=== PATIENT | female | born 1970 | race Caucasian/White ===

== ENCOUNTER 2021-04-10 09:34 | Inpatient (IN) | payer MEDICAID, OTHER, SELFPAY ==
[~2021-04-10] VITALS: Ht 162.6 cm; Wt 47.6 kg
[~2021-04-10 09:34] MED LIST: GLU500 PO; GLYPIZIDE PO; IBUP-1969 PO
[2021-04-10 09:55] VITALS: BP_SYST 95
--- NOTE | 2021-04-10 09:55 | NUR ---
Placed in room 4 . Placed on cardiac tech, blood pressure machine and pulse oximeter. To gown for exam. Side rails up.
--- NOTE | 2021-04-10 09:56 | NUR ---
Pt bib ambulance for hyperglycemia 490 on scene. Pt has no medical treatment for her diabetes and no primary care physician. Pt is AAOX3 with slurred speech. Pt presenting with kussmaul rspirations at 23 breathes per minute. Pt blood sugar upon arrival was 462. Pt VSS resting in [facility]. Pt had left ankle surgery presenting with redness and warmth to incision site and malodourous skin is intact. Pt attached to monitor in [facility] with side rails up. Pt brought with [address] [facility] with 1 liter of NS hanging. Pt breathing is even and labored. Pt complains of weakness.
--- NOTE | 2021-04-10 09:57 | NUR ---
ER at bedside examining patient.
--- NOTE | 2021-04-10 10:00 | NUR ---
Lab at bedside.
--- NOTE | 2021-04-10 10:08 | NUR ---
x-ray at bedside.
[2021-04-10 10:25] LABS: BASOPHILS # (AUTO) 0.2 K/uL (0.0-0.2); BASOPHILS % (AUTO) 0.8 % (0.0-2.0); HEMATOCRIT 36.3 % (36-48); HEMOGLOBIN 11.4 g/dL (12.0-16.0); LYMPHOCYTES # (AUTO) 0.5 K/uL (1.0-5.5); LYMPHOCYTES % (AUTO) 2.4 % (20.5-51.5); MEAN CORPUSCULAR HEMOGLOBIN 29 pg (27-31); MEAN CORPUSCULAR HGB CONC 31 % (32-36); MEAN CORPUSCULAR VOLUME 94 fL (79.0-98.0); MONOCYTES % (AUTO) 5.3 % (1.7-9.3); NEUTROPHILS # (AUTO) 17.9 K/uL (1.8-7.7); NEUTROPHILS % (AUTO) 91.5 % (40.0-70.0); PLATELET COUNT (AUTO) 390 K/uL (130-430); RED BLOOD CELL COUNT(AUTO) 3.87 MIL/uL (4.2-6.2); RED CELL DISTRIBUTION WIDTH 13.8 % (9.0-15.0); WHITE BLOOD COUNT (AUTO) 19.6 K/uL (4.8-10.8)
[2021-04-10 10:34] LABS: ACETONE, SERUM MODERATE (NEGATIVE)
[2021-04-10 10:44] LABS: INR 1.1 (0.8-1.2); PROTHROMBIN TIME 11.7 SECS (9.5-12.5)
--- NOTE | 2021-04-10 10:55 | NUR ---
Pt doesnt take any medications at home.
--- NOTE | 2021-04-10 10:55 | NUR ---
Pt daughter at bedside.
--- NOTE | 2021-04-10 11:02 | NUR ---
Covid swab and MRSA swab collected and sent to lab.
--- NOTE | 2021-04-10 11:14 | NUR ---
Pt placed on bedpan for urine but pt could not urinate.
[2021-04-10 11:58] LABS: ALANINE AMINOTRANSFERASE 14 U/L (12-78); ALBUMIN 2.3 g/dL (3.4-4.8); ANION GAP 31 (5-15); ASPARTATE AMINOTRANSFERASE 16 U/L (10-37); CALCIUM 9.8 mg/dL (8.4-11.0); CHLORIDE 92 mmol/L (98-107); CREATININE 1.11 mg/dL (0.55-1.30); SODIUM SERUM 128 mmol/L (136-145); TOTAL BILIRUBIN 0.5 mg/dL (0.0-1.0); UREA NITROGEN, BLOOD 49 mg/dL (8-21)
--- NOTE | 2021-04-10 12:00 | NUR ---
RT at bedside.
[2021-04-10 12:02] LABS: POTASSIUM 2.9 mmol/L (3.5-5.1)
[2021-04-10 12:05] LABS: GLUCOSE 531 mg/dL (70-99)
[2021-04-10] MEDS ORDERED: NACL 0.9% 1,000 ML IV ONE (12:15)
[2021-04-10] MEDS ORDERED: VANCOMYCIN HCL 1,000 MG in NS 250 ML IV ONE (12:15)
[2021-04-10] MEDS ORDERED: INSULIN REGULAR, HUMAN 10 UNITS/0.1 ML INJ IVP ONE (12:15)
[2021-04-10] MEDS ORDERED: PIPERACILLIN/TAZO 4.5 GM in NS 100 ML IV ONE (12:15)
[2021-04-10] MEDS ORDERED: NACL 0.9% 2,000 ML IV ONE (12:30)
--- NOTE | 2021-04-10 12:30 | NUR ---
# 20 gauge angiocath placed to LAC. Use of asceptic technique. Opsite placed over site. Blood return noted. Blood for lab drawn from site. Flushed with 10 cc of normal saline. No evidence of infiltration noted. Patient tolerated well.
[2021-04-10] MEDS ORDERED: PIPERACILLIN/TAZOBACTAM 4.5 GM/VIAL (ZOSYN) IV ONE (12:41)
[2021-04-10] MEDS ORDERED: VANCOMYCIN HCL 1000 MG/VIAL IV ONE (12:41)
[2021-04-10] MEDS ORDERED: INSULIN REGULAR, HUMAN 100 UNITS in NS 99 ML IV ONE ×2 (13:00)
--- NOTE | 2021-04-10 13:00 | NUR ---
X-ray at bedside.
[2021-04-10] MEDS ORDERED: POTASSIUM CHLORIDE 20 MEQ TAB.PRT.SR PO ONE ×3 (13:15→22:45)
[2021-04-10] MEDS ORDERED: DOPamine PREMIX 250 ML IV PRN (13:15)
--- NOTE | 2021-04-10 13:31 | NUR ---
Dr. Adam placed a 20 gauge angiocath IJ into the right side of the neck .Pt tolerated well. Blood return noted flushed with 10 cc normal saline and opsite placed with sterile technique.
--- NOTE | 2021-04-10 13:41 | NUR ---
# 20 gauge angiocath placed to RFA. Use of asceptic technique. Opsite placed over site. Blood return noted. Blood for lab drawn from site. Flushed with 10 cc of normal saline. No evidence of infiltration noted. Patient tolerated well.
[2021-04-10] MEDS: KCL 20 mEq in NS 1000 mL 1,000 ML IV SCH ×2 (13:45→19:25)
--- NOTE | 2021-04-10 13:56 | NUR ---
Dr. Lacy at bedside examining pt.
--- NOTE | 2021-04-10 14:52 | NUR ---
POLST Updated to Full Code.
--- NOTE | 2021-04-10 15:33 | NUR ---
Titrated insulin drip to 2 units/hr per protocol BS 227.
--- NOTE | 2021-04-10 16:01 | NUR ---
Pt resting in [facility] no distress noted at this time. VSS 123/71 HR 90 RR 16 Temp 97.2 temporal and denies pain. Attached to monitor
--- NOTE | 2021-04-10 16:10 | NUR ---
Lab at bedside.
--- NOTE | 2021-04-10 16:29 | NUR ---
Called ICU for a bed and there are no beds available. Pt will be holding in ER.
[2021-04-10 16:34] LABS: CALCIUM 9.2 mg/dL (8.4-11.0); CREATININE 0.97 mg/dL (0.55-1.30)
[2021-04-10 16:42] LABS: POTASSIUM 2.4 mmol/L (3.5-5.1)
--- NOTE | 2021-04-10 17:01 | NUR ---
Spoke with Dr. Lacy and updated on pt status. Orders recieved.
--- NOTE | 2021-04-10 17:34 | NUR ---
Insulin drip titrated down to 1 unit/hr per protocol. BS 144
--- NOTE | 2021-04-10 17:45 | NUR ---
Pt assisted to bedpan.
[2021-04-10] MEDS: PIPERACILLIN/TAZO 3.375/DEX-IS 50 ML IV SCH (17:56)
--- NOTE | 2021-04-10 18:23 | NUR ---
Pt given dinner tray.
--- NOTE | 2021-04-10 19:08 | NUR ---
Care endorsed to Cesar SIN.
--- NOTE | 2021-04-10 20:55 | NUR ---
Continuing pt insulin IV drip rate, VSS well tolerated
[2021-04-10] MEDS: ENOXAPARIN SODIUM 30 MG/0.3 ML SYRINGE SUBCUT SCH (21:00)
[2021-04-10 21:53] LABS: CALCIUM 9.4 mg/dL (8.4-11.0); CREATININE 0.98 mg/dL (0.55-1.30)
[2021-04-10 21:59] LABS: ALBUMIN 1.9 g/dL (3.4-4.8); TOTAL BILIRUBIN 0.4 mg/dL (0.0-1.0)
--- NOTE | 2021-04-10 22:00 | NUR ---
Dr. Lacy called to TO @4 BMP labs and his verbal orders for additional Ks and changing IVF to D5NS with 20 kcl
[2021-04-10 22:02] LABS: POTASSIUM 2.5 mmol/L (3.5-5.1)
[2021-04-10] MEDS ORDERED: KCL 40 mEq in 100 mL (PREMIX) 100 ML IV ONE (22:45)
--- NOTE | 2021-04-10 23:22 | NUR ---
Patient will be admitted to care of Dr. Lacy. Admitted to ICU unit. Will go to room 126. Belongings list completed. Complete and up to date summary report printed. SBAR report to be given at bedside with opportunity for questions.
--- NOTE | 2021-04-10 23:24 | NUR ---
Transfer to ICU via ACLS protocol. Licensed nurse present. IV present no signs or symptoms of infiltration.
--- NOTE | 2021-04-10 23:35 | NUR ---
Received patient from ER via gurney. Lethargic and requires assistance for transfer. Follows simple commands, very weak. Left ankle shows scar from surgical incision which in the external aspect drains dark color fluid; no odor noted. no respiratory distress noted but patient display grimacing upon reposition; patient denies pain. Requesting to use bedpan and requires full assist during urination. will continue to monitor.
[2021-04-11] VITALS (22 sets, daily range): BP systolic 96–123
[2021-04-11] MEDS ORDERED: KCL IV ONE (00:18)
[2021-04-11] MEDS ORDERED: D5NS IV ONE (00:18)
[2021-04-11] MEDS: KCL 20 mEq in D5NS 1000 mL 1,000 ML IV SCH ×4 (01:22→17:55)
[2021-04-11] MEDS: PIPERACILLIN/TAZO 3.375/DEX-IS 50 ML IV SCH ×5 (01:22→23:55)
[2021-04-11 02:03] LABS: CALCIUM 9.3 mg/dL (8.4-11.0); CREATININE 1.01 mg/dL (0.55-1.30); POTASSIUM 3.3 mmol/L (3.5-5.1)
--- NOTE | 2021-04-11 05:27 | NUR ---
CONSULTATION PAGED DR. AKILA MAX WARP DRESSER [phone] LEUKOCYTOSIS SPOKE WITH MODESTO
--- NOTE | 2021-04-11 05:31 | NUR ---
CONSULTATION PAGED DR. LEON-SAYED [phone] WOMACK
[2021-04-11 06:46] LABS: BASOPHILS % (AUTO) 0.2 % (0.0-2.0); HEMATOCRIT 31.2 % (36-48); HEMOGLOBIN 10.5 g/dL (12.0-16.0); LYMPHOCYTES # (AUTO) 0.2 K/uL (1.0-5.5); MEAN CORPUSCULAR HEMOGLOBIN 29 pg (27-31); MEAN CORPUSCULAR HGB CONC 34 % (32-36); MEAN CORPUSCULAR VOLUME 86 fL (79.0-98.0); MONOCYTES # (AUTO) 0.9 K/uL (0.0-1.0); MONOCYTES % (AUTO) 5.5 % (1.7-9.3); NEUTROPHILS % (AUTO) 93.3 % (40.0-70.0); PLATELET COUNT (AUTO) 282 K/uL (130-430); RED BLOOD CELL COUNT(AUTO) 3.62 MIL/uL (4.2-6.2); RED CELL DISTRIBUTION WIDTH 13.2 % (9.0-15.0); WHITE BLOOD COUNT (AUTO) 16.1 K/uL (4.8-10.8)
[2021-04-11 06:57] LABS: CALCIUM 9.1 mg/dL (8.4-11.0); CREATININE 1.05 mg/dL (0.55-1.30)
--- NOTE | 2021-04-11 08:26 | NUR ---
0800 no change in insulin dose/bs 267 continue at 4 units/pt recieved asleep, easily aroused but lethargic, v/s stable, endocrinology saw pt, spoke to dr bah and updated/pt follows commands, afebrile and on room air, o2 sat 98%//pt still has some dark fluid coming from mouth that looks coffee ground but no vomiting yet//mw
[2021-04-11 08:36] LABS: C-REACTIVE PROTEIN QUANT 31.5 mg/dL (0-0.5)
[2021-04-11 08:42] LABS: CALCIUM 9.2 mg/dL (8.4-11.0); CREATININE 0.96 mg/dL (0.55-1.30)
[2021-04-11 09:01] LABS: POTASSIUM 2.8 mmol/L (3.5-5.1)
[2021-04-11 09:03] LABS: POTASSIUM 2.8 mmol/L (3.5-5.1)
--- NOTE | 2021-04-11 10:34 | NUR ---
1000 bs 273-continue 4 unit drip/no change/daughter at bedside, updated to pt condition//mw
[2021-04-11] MEDS ORDERED: KCL 40 mEq in 100 mL (PREMIX) 100 ML IV ONE (10:45)
[2021-04-11] MEDS ORDERED: POTASSIUM CHLORIDE 40 MEQ in NS 250 ML IV ONE (11:15)
[2021-04-11] MEDS: VANCOMYCIN HCL 750 MG in NS 250 ML IV SCH (12:18)
--- NOTE | 2021-04-11 12:20 | NUR ---
1200 blood suger 270, bicarb now is 15, continue insuilin drip at 4u/h/recheck chem at 4pm after potassium drip complete
[2021-04-11] MEDS ORDERED: INSULIN REGULAR, HUMAN 100 UNITS in NS 99 ML IV PRN ×4 (13:15)
--- NOTE | 2021-04-11 15:49 | NUR ---
Called Dr. Becerra with a consult, spoke with Yasmeen from the exchange
[2021-04-11 16:18] LABS: CALCIUM 9.3 mg/dL (8.4-11.0); CREATININE 0.83 mg/dL (0.55-1.30)
[2021-04-11 16:27] LABS: POTASSIUM 2.6 mmol/L (3.5-5.1)
[2021-04-11 17:02] LABS: CALCIUM 9.4 mg/dL (8.4-11.0); CREATININE 0.86 mg/dL (0.55-1.30)
[2021-04-11 17:13] LABS: POTASSIUM 2.6 mmol/L (3.5-5.1)
[2021-04-11] MEDS ORDERED: POTASSIUM CHLORIDE 20 MEQ/PKT PACKET PO ONE (18:15)
[2021-04-11] MEDS ORDERED: KCL 20 mEq in 100 mL (PREMIX) 100 ML IV ONE (18:15)
--- NOTE | 2021-04-11 18:25 | NUR ---
bs 164 1800, drip continues until 90mins after NPH dose given, then dc insuli drip, change ivf to 1/2 ns at 100cc/h and BS ac/hs//order of 20 keyona kcl po, then 20 keyona kcl iv//dcd q4hour labs and ordered mg,phos and bmp in a.m.//mw
[2021-04-11] MEDS ORDERED: DEXTROSE 50% JECT 50 ML DISP.SYRIN IVP PRN ×2 (19:00)
[2021-04-11] MEDS ORDERED: D5W 1,000 ML IV PRN (19:00)
[2021-04-11] MEDS ORDERED: GLUCOSE (DEXTROSE) ORAL GEL -Adults PO PRN (19:00)
[2021-04-11] MEDS: INSULIN NPH 100 UNITS/ML 10 ML VIAL SUBCUT SCH ×2 (19:15→22:10)
[2021-04-11] MEDS: 0.45% NACL 1,000 ML IV SCH (22:24)
[2021-04-11] MEDS: ENOXAPARIN SODIUM 30 MG/0.3 ML SYRINGE SUBCUT SCH (22:28)
[2021-04-12] VITALS (14 sets, daily range): BP systolic 99–126
[2021-04-12] MEDS: INSULIN REGULAR, HUMAN 100 UNITS/ML, 10 ML VIAL (humuLIN R) SUBCUT PRN ×4 (00:28→17:44)
[2021-04-12] MEDS: PIPERACILLIN/TAZO 3.375/DEX-IS 50 ML IV SCH ×3 (06:32→17:52)
--- NOTE | 2021-04-12 07:23 | NUR ---
INITIAL RECEIVED REPORT FROM NIGHT RN FOR CONTINUING OF CARE
[2021-04-12 07:38] LABS: BASOPHILS % (AUTO) 0.2 % (0.0-2.0); HEMOGLOBIN 9.5 g/dL (12.0-16.0); LYMPHOCYTES # (AUTO) 0.5 K/uL (1.0-5.5); LYMPHOCYTES % (AUTO) 2.8 % (20.5-51.5); MEAN CORPUSCULAR HEMOGLOBIN 29 pg (27-31); MEAN CORPUSCULAR HGB CONC 34 % (32-36); MEAN CORPUSCULAR VOLUME 86 fL (79.0-98.0); MONOCYTES % (AUTO) 5.5 % (1.7-9.3); NEUTROPHILS # (AUTO) 16.4 K/uL (1.8-7.7); NEUTROPHILS % (AUTO) 91.5 % (40.0-70.0); PLATELET COUNT (AUTO) 250 K/uL (130-430); RED BLOOD CELL COUNT(AUTO) 3.25 MIL/uL (4.2-6.2); RED CELL DISTRIBUTION WIDTH 13.5 % (9.0-15.0)
[2021-04-12 08:18] LABS: CALCIUM 9.1 mg/dL (8.4-11.0); CREATININE 0.62 mg/dL (0.55-1.30); PHOSPHORUS 1.1 mg/dL (2.7-4.5)
[2021-04-12] MEDS ORDERED: ONDANSETRON HCL 4 MG/2 ML VIAL IVP PRN (08:30)
[2021-04-12 08:34] LABS: POTASSIUM 2.8 mmol/L (3.5-5.1)
--- NOTE | 2021-04-12 08:52 | NUR ---
LAB UPDATED INFORMED ASTRID MOSQUERA OF PT'S POTASSIUM LEVEL OF 2.8. VERBALIZED THAT HE WILL PUT IN ORDER OF POTASSIUM REPLACEMENT
[2021-04-12] MEDS: INSULIN NPH 100 UNITS/ML 10 ML VIAL SUBCUT SCH (09:07)
[2021-04-12] MEDS: 0.45% NACL 1,000 ML IV SCH ×2 (09:08→17:57)
[2021-04-12] MEDS ORDERED: POTASSIUM CHLORIDE 20 MEQ TAB.PRT.SR PO ONE (09:15)
[2021-04-12] MEDS ORDERED: KCL 40 mEq in 100 mL (PREMIX) 100 ML IV ONE (09:15)
[2021-04-12] MEDS: VANCOMYCIN HCL 750 MG in NS 250 ML IV SCH (11:15)
[2021-04-12] MEDS: KCL 20 mEq in 100 mL (PREMIX) 100 ML IV SCH ×3 (12:12→12:38)
--- NOTE | 2021-04-12 14:52 | NUR ---
ENDORSEMENT REPORT GIVEN TO TELE NURSE FOR CONTINUING OF CARE. PT DENIED PAIN; VSS ARE STABLE. BED LOCKED & IN LOWEST POSITION
--- NOTE | 2021-04-12 15:00 | NUR ---
ASSUME CARE: PATIENT RESTING IN BED. NO S/S OF ACUTE DISTRESS NOTED. IV INFUSING WELL. BED LOCKED, ALARM ON AND IN LOWEST POSITION, CALL LIGHT WITHIN REACH. WILL CONTINUE MONITOR PATIENT.
--- NOTE | 2021-04-12 19:25 | NUR ---
CLOSING NOTES: PATIENT EATING DINNER. NO S/S OF ACUTE DISTRESS NOTED. IV INFUSING WELL. BED LOCKED, ALARM ON AND IN LOWEST POSITION. CALL LIGHT WITHIN REACH.
--- NOTE | 2021-04-12 19:30 | NUR ---
OPENING NOTE: RECEIVED CARE OF PATIENT AND SBAR REPORT. PATIENT IS AAOX4, RESTING IN BED, IVF INFUSING AT ORDERED RATE WITH NO S/S OF INFILTRATION AT IV SITE. VSS. RESPIRATIONS ARE EVEN AND UNLABORED TO ROOM AIR, NO S/S OF RESPIRATORY DISTRESS NOTED. SAFETY AND FALL PRECAUTIONS ARE IN PLACE. CALL LIGHT IS WITH PATIENT. WILL MONITOR.
[2021-04-12] MEDS: ENOXAPARIN SODIUM 30 MG/0.3 ML SYRINGE SUBCUT SCH (20:35)
[2021-04-12] MEDS: INSULIN GLARGINE 100 UNITS/ML 10 ML VIAL SUBCUT SCH (20:43)
--- NOTE | 2021-04-13 | NUR ---
PATIENT RESTING: Patient resting quietly. No acute distress noted. Vital signs within normal range.
[2021-04-13] MEDS: PIPERACILLIN/TAZO 3.375/DEX-IS 50 ML IV SCH ×3 (00:20→10:46)
[2021-04-13] MEDS: INSULIN REGULAR, HUMAN 100 UNITS/ML, 10 ML VIAL (humuLIN R) SUBCUT PRN ×4 (00:25→17:22)
[2021-04-13 01:02] VITALS: BP_SYST 106
[2021-04-13] MEDS: 0.45% NACL 1,000 ML IV SCH ×3 (06:08→18:19)
[2021-04-13 06:36] LABS: BASOPHILS % (AUTO) 0.3 % (0.0-2.0); EOSINOPHILS # (AUTO) 0.1 K/uL (0.0-0.4); EOSINOPHILS % (AUTO) 0.3 % (0.0-4.0); HEMATOCRIT 26.8 % (36-48); HEMOGLOBIN 9.2 g/dL (12.0-16.0); LYMPHOCYTES # (AUTO) 0.9 K/uL (1.0-5.5); LYMPHOCYTES % (AUTO) 4.6 % (20.5-51.5); MEAN CORPUSCULAR HEMOGLOBIN 29 pg (27-31); MEAN CORPUSCULAR HGB CONC 34 % (32-36); MEAN CORPUSCULAR VOLUME 85 fL (79.0-98.0); MONOCYTES # (AUTO) 0.9 K/uL (0.0-1.0); NEUTROPHILS # (AUTO) 16.7 K/uL (1.8-7.7); NEUTROPHILS % (AUTO) 89.8 % (40.0-70.0); PLATELET COUNT (AUTO) 199 K/uL (130-430); RED BLOOD CELL COUNT(AUTO) 3.16 MIL/uL (4.2-6.2); WHITE BLOOD COUNT (AUTO) 18.6 K/uL (4.8-10.8)
--- NOTE | 2021-04-13 06:42 | NUR ---
OPENING NOTE: PATIENT IS AAOX4, RESTING IN BED, IVF INFUSING AT ORDERED RATE WITH NO S/S OF INFILTRATION AT IV SITE. VSS. RESPIRATIONS ARE EVEN AND UNLABORED TO ROOM AIR, NO S/S OF RESPIRATORY DISTRESS NOTED. SAFETY AND FALL PRECAUTIONS ARE IN PLACE. CALL LIGHT IS WITH PATIENT. WILL MONITOR UNTIL PATIENT CARE IS ENDORSED TO DAY SHIFT RN.
[2021-04-13 07:28] LABS: CALCIUM 8.7 mg/dL (8.4-11.0); CREATININE 0.64 mg/dL (0.55-1.30)
[2021-04-13 08:13] VITALS: BP_SYST 108
[2021-04-13 08:48] LABS: POTASSIUM 2.8 mmol/L (3.5-5.1)
[2021-04-13] MEDS: INSULIN GLARGINE 100 UNITS/ML 10 ML VIAL SUBCUT SCH (09:13)
[2021-04-13] MEDS ORDERED: COMMUNICATION ORDER XX ONE (09:45)
[2021-04-13] MEDS ORDERED: POTASSIUM CHLORIDE 40 MEQ, LIDOCAINE JECT 2% PF 100 MG 50 MG in NS 250 ML IV ONE (09:45)
--- NOTE | 2021-04-13 09:49 | NUR ---
ENDO CONSULT: MD LEON-SAYED CAME INFORMED PATIENT CRITICAL LAB RESULT. NEW ORDER RECEIVED K-RIDER 40MEQ IVPB. K PHOS 20MEQ PO BID X1 DAY.
[2021-04-13 11:29] VITALS: BP_SYST 98
--- NOTE | 2021-04-13 11:41 | NUR ---
called pharmacy to follow up gage le stated working on it.
[2021-04-13] MEDS: NAPH,MB-DB/K PH,MBDB 250 MG TAB PO SCH (12:11)
--- NOTE | 2021-04-13 12:34 | NUR ---
Dietitian Recommendations *Recommend: continue [facility] diet. Add Glucerna BID and Rosas BID. ONS and modular will provide: 600 kcal, 25gm protein daily. *Encourage PO intake. Please see Nutritional Assessment for details. SHERITA GUZMAN
--- NOTE | 2021-04-13 15:00 | NUR ---
patient refused sponge bath.
[2021-04-13 15:25] VITALS: BP_SYST 116
--- NOTE | 2021-04-13 15:30 | NUR ---
WOUND EVALUATION: Wound Consult received from Dr. Lacy. Thank you, Dr. Lacy, for the consult. Patient received in a [place] Bed with an Isoflex CASEY mattress, awake, alert, and oriented. Patient is able to turn in bed independently. Gee Score is a 15. Past Medical History: Diabetes Mellitus (noncompliant, not taking any medication), Left Ankle Fracture (had an Open Reduction Internal Fixation surgery at [facility] a few weeks ago). Recent Labs: WBC 18.6, RBC 3.16, hemoglobin 9.2, hematocrit 26.8, ESR 113, potassium 2.8, chloride 109, glucose 186, POC glucose 207. Microbiology: Blood culture results x2 in progress. MRSA screen results negative. Wound culture results in progress. Intrinsic factors that delay wound healing: Diabetes Mellitus (noncompliant), Diabetic Ketoacidosis (on admission). Extrinsic factors that delay wound healing: Decreased mobility. Dr. Becerra is on surgical consult. Wound Assessment: 1. Left Distal Medial Lower Extremity, Superior to Malleolus: Abscess, present on admission. Wound bed has 100% yellow tissue. No odor, small yellow purulent drainage. Periwound and surrounding tissue (5.5 cm total area) is soft with fluctuance. Open area measures 1.1 cm x 1.7 cm. 2. Left Distal Lateral Lower Extremity, Superior to Malleolus: Prior healed incision site that reopened, present on admission. No wound bed visible. Site has no odor, small yellow purulent drainage. Wound measures 1.3 cm x 0.2 cm. Recommend: Cleanse wounds with normal saline. Apply SurePrep to dick-wounds. Cover with alginate dressings, then non-adhesive foam dressings. Wrap with Nicole wrap and secure with tape. Perform wound care daily, and as needed for dressing soiling or dislodgement. Also recommend: Reposition patient every 2 hours with pillow support and off-load pressure areas with pillows for pressure re-distribution. Offload, elevate and float bilateral heels with pillows. Perform skin care and monitor skin integrity Q shift. Use moisture barrier cream on buttocks and other moisture susceptible areas QID and as needed for soiling. Place patient on a low air-loss mattress.
--- NOTE | 2021-04-13 15:34 | NUR ---
wound care nurses evaluated patient wound at left ankle. recommended cleanse with normal saline, alignate and foam, wrapped with kerlix dressing.
--- NOTE | 2021-04-13 18:39 | NUR ---
ALL NEEDS METS.NO SIGNIFICANT CHANGES OF CONDITION NOTED. IVF INFUSING WELL SITE PATENT.NO S/S OF DISTRESS. WILL ENDORSED TO INCOMING NURSE.
[2021-04-13 19:00] VITALS: BP_SYST 88
[2021-04-13 20:00] VITALS: BP_SYST 88
[2021-04-14] MEDS: NAPH,MB-DB/K PH,MBDB 250 MG TAB PO SCH (01:00)
[2021-04-14] MEDS: CEFTAROLINE FOSAMIL ACETATE 600 MG in NS 250 ML IV SCH ×3 (01:01→20:18)
[2021-04-14] MEDS: ENOXAPARIN SODIUM 30 MG/0.3 ML SYRINGE SUBCUT SCH ×2 (01:16→20:27)
[2021-04-14] MEDS: INSULIN GLARGINE 100 UNITS/ML 10 ML VIAL SUBCUT SCH ×3 (01:19→20:30)
[2021-04-14] MEDS: INSULIN REGULAR, HUMAN 100 UNITS/ML, 10 ML VIAL (humuLIN R) SUBCUT PRN (01:22)
[2021-04-14 05:30] VITALS: BP_SYST 88
[2021-04-14] MEDS: 0.45% NACL 1,000 ML IV SCH (06:49)
[2021-04-14 06:51] LABS: CALCIUM 8.4 mg/dL (8.4-11.0); CREATININE 0.64 mg/dL (0.55-1.30); PHOSPHORUS 2.2 mg/dL (2.7-4.5)
--- NOTE | 2021-04-14 07:40 | NUR ---
Opening Received report from RN. Pt AAOx3, able to verbalize needs, states no pain or distress on RA. IV sites intact, patent, no infiltration noted, with IVF infusing. Noted dressing on left ankle. De La Cruz in place draining yellow urine to gravity. Pt up in bed eating breakfast, no assist.
[2021-04-14 08:00] VITALS: BP_SYST 126
[2021-04-14 08:11] LABS: BASOPHILS % (AUTO) 0.1 % (0.0-2.0); EOSINOPHILS # (AUTO) 0.1 K/uL (0.0-0.4); EOSINOPHILS % (AUTO) 0.5 % (0.0-4.0); HEMATOCRIT 27.2 % (36-48); HEMOGLOBIN 9.2 g/dL (12.0-16.0); LYMPHOCYTES % (AUTO) 9.2 % (20.5-51.5); MEAN CORPUSCULAR HEMOGLOBIN 29 pg (27-31); MEAN CORPUSCULAR HGB CONC 34 % (32-36); MEAN CORPUSCULAR VOLUME 85 fL (79.0-98.0); MONOCYTES % (AUTO) 9.5 % (1.7-9.3); NEUTROPHILS # (AUTO) 8.7 K/uL (1.8-7.7); NEUTROPHILS % (AUTO) 80.7 % (40.0-70.0); PLATELET COUNT (AUTO) 192 K/uL (130-430); RED BLOOD CELL COUNT(AUTO) 3.19 MIL/uL (4.2-6.2); RED CELL DISTRIBUTION WIDTH 13.9 % (9.0-15.0); WHITE BLOOD COUNT (AUTO) 10.7 K/uL (4.8-10.8)
[2021-04-14 08:14] LABS: POTASSIUM 2.6 mmol/L (3.5-5.1)
[2021-04-14 12:00] VITALS: BP_SYST 124
--- NOTE | 2021-04-14 12:00 | NUR ---
Rounds Pt in no signs of pain or distress. Vitals stable on room air. Provided pt with lunch tray.
[2021-04-14 16:00] VITALS: BP_SYST 130
--- NOTE | 2021-04-14 16:00 | NUR ---
Rounds Pt in no signs of distress or pain. Vitals stable. No other complaints at this time.
[2021-04-14] MEDS ORDERED: POTASSIUM CHLORIDE 20 MEQ in NS 250 ML IV ONE (18:15)
[2021-04-14] MEDS ORDERED: NAPH,MB-DB/K PH,MBDB 250 MG TAB PO ONE (18:45)
[2021-04-14 19:00] VITALS: BP_SYST 111
--- NOTE | 2021-04-14 19:15 | NUR ---
Closing Pt up in bed eating dinner. IV sites intact, patent, no infiltration noted. De La Cruz draining yellow urine to gravity. Pt received neutra phos PO and now waiting for K rider replacement from pharmacy, endorsed to warehouse supervisor 3rd shift RN.
[2021-04-15] MEDS: 0.45% NACL 1,000 ML IV SCH ×2 (00:06→09:01)
[2021-04-15 06:30] VITALS: BP_SYST 105
[2021-04-15 06:54] LABS: BASOPHILS % (AUTO) 0.1 % (0.0-2.0); EOSINOPHILS # (AUTO) 0.1 K/uL (0.0-0.4); EOSINOPHILS % (AUTO) 0.7 % (0.0-4.0); HEMATOCRIT 25.9 % (36-48); HEMOGLOBIN 8.8 g/dL (12.0-16.0); LYMPHOCYTES # (AUTO) 0.6 K/uL (1.0-5.5); LYMPHOCYTES % (AUTO) 7.6 % (20.5-51.5); MEAN CORPUSCULAR HEMOGLOBIN 29 pg (27-31); MEAN CORPUSCULAR HGB CONC 34 % (32-36); MEAN CORPUSCULAR VOLUME 85 fL (79.0-98.0); MONOCYTES % (AUTO) 11.6 % (1.7-9.3); NEUTROPHILS # (AUTO) 6.7 K/uL (1.8-7.7); PLATELET COUNT (AUTO) 168 K/uL (130-430); RED BLOOD CELL COUNT(AUTO) 3.05 MIL/uL (4.2-6.2); WHITE BLOOD COUNT (AUTO) 8.4 K/uL (4.8-10.8)
[2021-04-15 07:21] LABS: CALCIUM 7.9 mg/dL (8.4-11.0); CREATININE 0.57 mg/dL (0.55-1.30)
[2021-04-15 08:53] LABS: POTASSIUM 2.3 mmol/L (3.5-5.1)
--- NOTE | 2021-04-15 08:59 | NUR ---
DR LEON SAYED CAME AND MADE ORDERS
--- NOTE | 2021-04-15 08:59 | NUR ---
DR LEON SAYED CAME AND KNOWS ABOUT THE POTASSIUM LEVEL AND MADE ORDERS.
[2021-04-15] MEDS: NAPH,MB-DB/K PH,MBDB 250 MG TAB PO SCH (09:01)
[2021-04-15] MEDS: CEFTAROLINE FOSAMIL ACETATE 600 MG in NS 250 ML IV SCH (09:02)
[2021-04-15 09:11] VITALS: BP_SYST 135
[2021-04-15] MEDS ORDERED: KCL 40 mEq in 100 mL (PREMIX) 100 ML IV ONE (10:30)
[2021-04-15] MEDS: INSULIN GLARGINE 100 UNITS/ML 10 ML VIAL SUBCUT SCH ×2 (12:07→21:45)
[2021-04-15 12:10] VITALS: BP_SYST 108
[2021-04-15] MEDS ORDERED: POTASSIUM CHLORIDE 40 MEQ in NS 250 ML IV ONE (13:00)
[2021-04-15 13:34] VITALS: BP_SYST 111
[2021-04-15] MEDS: NAFCILLIN SODIUM 2 GM in NS 100 ML IV SCH ×2 (18:07→23:40)
[2021-04-15 19:22] VITALS: BP_SYST 142
[2021-04-15 20:00] VITALS: BP_SYST 111
[2021-04-15] MEDS: ENOXAPARIN SODIUM 30 MG/0.3 ML SYRINGE SUBCUT SCH (21:33)
[2021-04-15] MEDS: ACETAMINOPHEN 325 MG TABLET PO PRN (23:36)
[2021-04-16] VITALS: BP_SYST 110
--- NOTE | 2021-04-16 01:26 | NUR ---
TRANSFER OF CARE RECEIVED CARE OF PATIENT AND SBAR REPORT. PT RESTING IN BED IN NO ACUTE DISTRESS. SAFETY PRECAUTIONS MAINTAINED. WILL MONITOR.
--- NOTE | 2021-04-16 01:47 | NUR ---
LOW BLOOD SUGAR BLOOD SUGAR NOTED TO BE 40. PATIENT ALERT AND ABLE TO SWALLOW. PT GIVEN JUICE. WILL RECHECK BLOOD SUGAR IN 15 MINUTES.
--- NOTE | 2021-04-16 02:04 | NUR ---
BLOOD SUGAR OF 63. MORE JUICE AND SNACKS GIVEN. PT ASYMPTOMATIC. WILL RECHECK BLOOD SUGAR IN 15 MINUTES.
--- NOTE | 2021-04-16 02:40 | NUR ---
BLOOD SUGAR OF 99. EDUCATED PT ON SYMPTOMS OF HYPOGLYCEMIA. PT VERBALIZED UNDERSTANDING. WILL MONITOR.
[2021-04-16] MEDS: NAFCILLIN SODIUM 2 GM in NS 100 ML IV SCH ×3 (06:34→16:55)
--- NOTE | 2021-04-16 07:10 | NUR ---
CLOSING NOTE PT RESTING IN BED, NO S/S OF ACUTE DISTRESS. IVF INFUSING AT ORDERED RATE. BLOOD SUGAR OF 113 THIS MORNING. F/C INTACT AND DRAINING TO GRAVITY. PT DENIES FURTHER NEEDS AT THIS TIME. SAFETY MAINTAINED. WILL ENDORSE TO DAY SHIFT RN.
--- NOTE | 2021-04-16 08:00 | NUR ---
notes PATIENT AAOX 4. STILL VERBALIZED I AM WEAK. VITALS SIGNS STABLE. AFEBRILE. LUNGS BILATERALLY CLEAR. ABDOMEN SOFT AND NON DISTENDED. LEFT ANKLE HAS DRESSING DRY AND INTACT. SACRAL AREA HAS OPTIFOAM DRESSING NOTED. DRY AND INTACT. BED LOW POSITION, ALARMED AND LOCKED.
[2021-04-16 08:01] LABS: CALCIUM 7.5 mg/dL (8.4-11.0); CREATININE 0.68 mg/dL (0.55-1.30)
[2021-04-16 08:10] LABS: POTASSIUM 2.9 mmol/L (3.5-5.1)
--- NOTE | 2021-04-16 09:00 | NUR ---
LATEST POTASSIUM LEVEL IS 2.9. INFORMED DR JARRETT. AWAITING TO CALL BACK.
--- NOTE | 2021-04-16 09:00 | NUR ---
DUE MEDS GIVEN
[2021-04-16 09:28] VITALS: BP_SYST 108
[2021-04-16] MEDS: NAPH,MB-DB/K PH,MBDB 250 MG TAB PO SCH (09:33)
[2021-04-16] MEDS: INSULIN GLARGINE 100 UNITS/ML 10 ML VIAL SUBCUT SCH (09:36)
--- NOTE | 2021-04-16 10:54 | NUR ---
HIGH ALERT NOTE: CalledAT 0830AM Dr. LALO NGUYEN back at 0900 identified within the medical roster to verify physician authenticity.FOR POTASSIUM RIDER 40 MEQ IV X ONE.
[2021-04-16] MEDS ORDERED: POTASSIUM CHLORIDE 40 MEQ in NS 250 ML IV ONE (11:00)
[2021-04-16 13:19] VITALS: BP_SYST 109
--- NOTE | 2021-04-16 13:21 | NUR ---
had two bowl movemnt brown soft stool
--- NOTE | 2021-04-16 13:22 | NUR ---
photos taken on the left ankle and sacrum area.
[2021-04-16] MEDS: 0.45% NACL 1,000 ML IV SCH (16:57)
[2021-04-16 16:59] VITALS: BP_SYST 110
--- NOTE | 2021-04-16 17:36 | NUR ---
dressing changed on left ankle. elevate on pillows. sacral area and perineal care done.
--- NOTE | 2021-04-16 17:57 | NUR ---
INFORMED JANUARY PRAKASH THAT PT IS OFF MONITOR, NEEDS BATTER CHANGE.
--- NOTE | 2021-04-16 18:44 | NUR ---
CLOSING NOTES PATIENT VERBALIZED FEELS MUCH BETTER AFTER EATING APPLE SAUCE JELLO AND 3 CUPS OF APPLE JUICE AND ONE MILK. BLOOD SUGAR EARLIER AT 1700 IS 50 MG/DL. D50 IV GIVEN. LATEST BS 186 MG/DL. PATIENT VERBALIZED WILL EAT MORE, SLIGHT WEAKNESS NOTED. WILL CONTINUE TO MONITOR PATIENTS STATUS. CALL LIGHTS WITHIN REACH. STILL WITH NO DISTRESS NOR PAIN NOTED. BED LOW POSITION, ALARMED AND LOCKED. ENDORSED TO INCOMING NURSE.
[2021-04-16 20:00] VITALS: BP_SYST 113
--- NOTE | 2021-04-16 20:00 | NUR ---
Opening notes Pt AAOx3, VSS, eating dinner at this time. No s/s distress noted. De La Cruz catheter draining to gravity with yellow urine. Call light within reach. Bed low, locked, siderails up x3. To monitor.
[2021-04-16] MEDS ORDERED: INSULIN GLARGINE 100 UNITS/ML 10 ML VIAL SUBCUT SCH (21:00)
[2021-04-16] MEDS: ENOXAPARIN SODIUM 30 MG/0.3 ML SYRINGE SUBCUT SCH (23:00)
[2021-04-17] MEDS: NAFCILLIN SODIUM 2 GM in NS 100 ML IV SCH ×5 (00:18→23:54)
[2021-04-17] MEDS: INSULIN REGULAR, HUMAN 100 UNITS/ML, 10 ML VIAL (humuLIN R) SUBCUT PRN ×2 (00:28→18:30)
[2021-04-17 00:53] VITALS: BP_SYST 132
--- NOTE | 2021-04-17 06:11 | NUR ---
Closing notes/hypoglycemic Pt alert awake, no s/s distress. BS checked at 0535=61, no change in pt's mental status. Provided with apple juice and jello. Rechecked at 0611=85. Pt incontinent of large soft BM, pericare provided. Z guard applied to sacral redness covered w/ optifoam. Call light within reach. Bed low, locked, siderails up x2. To endorse to AM nurse.
[2021-04-17 08:00] VITALS: BP_SYST 120
[2021-04-17] MEDS: INSULIN GLARGINE 100 UNITS/ML 10 ML VIAL SUBCUT SCH ×2 (09:00→22:09)
[2021-04-17 10:19] LABS: CALCIUM 7.7 mg/dL (8.4-11.0); CREATININE 0.68 mg/dL (0.55-1.30)
[2021-04-17 10:21] LABS: PROTHROMBIN TIME 10.8 SECS (9.5-12.5)
[2021-04-17 10:24] LABS: POTASSIUM 2.5 mmol/L (3.5-5.1)
--- NOTE | 2021-04-17 10:38 | NUR ---
Paged Dr. Lacy for critical lab result POTASSIUM 2,5
[2021-04-17] MEDS ORDERED: POTASSIUM CHLORIDE 20 MEQ TAB.PRT.SR PO ONE (11:00)
[2021-04-17] MEDS ORDERED: POTASSIUM CHLORIDE 20 MEQ TAB.PRT.SR ONE (11:10)
[2021-04-17] MEDS: NAPH,MB-DB/K PH,MBDB 250 MG TAB PO SCH (11:12)
[2021-04-17] MEDS ORDERED: POTASSIUM CHLORIDE 40 MEQ in NS 250 ML IV ONE (12:00)
[2021-04-17 12:03] VITALS: BP_SYST 113
[2021-04-17] MEDS: KCL 20 mEq in 0.45% NS 1000 mL 1,000 ML IV SCH (13:27)
[2021-04-17 16:00] VITALS: BP_SYST 106
[2021-04-17] MEDS: ACETAMINOPHEN 325 MG TABLET PO PRN (18:19)
--- NOTE | 2021-04-17 19:20 | NUR ---
initial notes: pt is awake, alert,oriented x4. no pain, o sob, stable vital sign, picc line in her lefy upper arm intact and patent. roque catheter draining to clear urine. explain plan of care. needs attended, call light in reach. will follow-up.
[2021-04-17 20:17] VITALS: BP_SYST 97
[2021-04-17] MEDS: POTASSIUM CHLORIDE 20 MEQ TAB.PRT.SR PO SCH (21:54)
[2021-04-17] MEDS: ENOXAPARIN SODIUM 30 MG/0.3 ML SYRINGE SUBCUT SCH (22:07)
[2021-04-18] VITALS: BP_SYST 127
--- NOTE | 2021-04-18 | NUR ---
clean pt and change chux, dressing change on sacral area and left and ankle. done. vital sign stable. needs attended.
[2021-04-18] MEDS: NAFCILLIN SODIUM 2 GM in NS 100 ML IV SCH ×3 (05:34→17:10)
[2021-04-18] MEDS: KCL 20 mEq in 0.45% NS 1000 mL 1,000 ML IV SCH (05:49)
--- NOTE | 2021-04-18 06:21 | NUR ---
closing: pt is awake, alert, no pain, no sob, not distress, stable the whole shift, clean and dry. needs attended, call light in reach, side rails up.low bed position. will continue to monitor, until sbar reporting given to am rn.
[2021-04-18 06:52] LABS: BASOPHILS % (AUTO) 0.1 % (0.0-2.0); EOSINOPHILS # (AUTO) 0.1 K/uL (0.0-0.4); EOSINOPHILS % (AUTO) 0.7 % (0.0-4.0); HEMATOCRIT 27.8 % (36-48); HEMOGLOBIN 9.1 g/dL (12.0-16.0); LYMPHOCYTES # (AUTO) 0.8 K/uL (1.0-5.5); MEAN CORPUSCULAR HEMOGLOBIN 28 pg (27-31); MEAN CORPUSCULAR HGB CONC 33 % (32-36); MEAN CORPUSCULAR VOLUME 87 fL (79.0-98.0); MONOCYTES # (AUTO) 0.7 K/uL (0.0-1.0); NEUTROPHILS % (AUTO) 86.2 % (40.0-70.0); PLATELET COUNT (AUTO) 286 K/uL (130-430); RED BLOOD CELL COUNT(AUTO) 3.19 MIL/uL (4.2-6.2); RED CELL DISTRIBUTION WIDTH 14.2 % (9.0-15.0); WHITE BLOOD COUNT (AUTO) 11.6 K/uL (4.8-10.8)
[2021-04-18 08:29] VITALS: BP_SYST 109
[2021-04-18] MEDS: POTASSIUM CHLORIDE 20 MEQ TAB.PRT.SR PO SCH ×2 (08:30→20:53)
[2021-04-18] MEDS: NAPH,MB-DB/K PH,MBDB 250 MG TAB PO SCH (08:30)
[2021-04-18] MEDS: INSULIN GLARGINE 100 UNITS/ML 10 ML VIAL SUBCUT SCH ×2 (08:32→20:55)
[2021-04-18 09:15] LABS: CALCIUM 7.8 mg/dL (8.4-11.0); CREATININE 0.71 mg/dL (0.55-1.30); POTASSIUM 3.7 mmol/L (3.5-5.1)
[2021-04-18] MEDS: INSULIN REGULAR, HUMAN 100 UNITS/ML, 10 ML VIAL (humuLIN R) SUBCUT PRN (11:56)
[2021-04-18 11:57] VITALS: BP_SYST 136
--- NOTE | 2021-04-18 15:15 | NUR ---
Education Educate patient on hygiene, medication ,diet, wound/skin care verbalized understanding.
--- NOTE | 2021-04-18 15:22 | NUR ---
Perineal care given , skin cream barrier applied to perineum redness/excoriated , repositioned.
[2021-04-18 16:34] VITALS: BP_SYST 120
--- NOTE | 2021-04-18 16:36 | NUR ---
Nutrition F/U RD reviewed pt's current EMR record including diet Hx, physician notes, nursing notes, pertinent labs/meds/procedures, care trends, and care activity. Admission Dx: DKA Pt w/: Acute DKA, Leukocytosis, Possible Infection, Dehydration, MEAGAN, Moderate Malnutrition, Infected Left ankle wound per MD notes. S/P Left ankle ORIF 03/03/21 SARS-Cov-2 Ag rapid 04/10 Negative Current Diet Order/Nutrition Support: CCHO diet w/ Glucerna BID, Rosas BID x5 days Subjective Info: Nutrition Consult received d/t abscess, dehisced Sx incision 04/13/[address] rounded to pt's bedside. Pt reported good appetite, no N/V/C/D. Last BM was earlier today. Pt stated she has not been drinking Glucerna d/t dislike, and does not care for fruit punch-flavored Rosas -- RD offered orange flavor as a replacement -- pt was agreeable to try. RD offered diabetic teaching, and pt was agreeable as well. RD provided verbal education during visit -- property management intern provided written handouts. Please refer to interdisciplinary teaching record for details. Per EMR review, PO intake average of 55% x14 meals; abd is soft and non-distended w/ active bowel sounds; last BM x1 10/2; L ankle w/ 3+ pitting edema; Gee scale: 14 -- Screw Driver Operator note 04/13 reviewed -- 1. Left Distal Medial Lower Extremity, Superior to Malleolus: Abscess, present on admission. 2. Left Distal Lateral Lower Extremity, Superior to Malleolus: Prior healed incision site that reopened, present on admission. Pt would benefit from D/C ONS and continuing Rosas BID supplementation. RD encouraged pt to continue to try to increase PO intakes for adequate nutrition. Pertinent Medications: k-dur, lactulose, KCl/NaCl IV, zofran, SSI, lovenox Pertinent Labs: Na 141 WNL, K 3.7 WNL, BG 154 H, POC BB 109 H, BUn 5 L, CRE 0.71 WNL, WBC 11.6 H Height (Feet) 5 feet Height (Inches) 4.00 inches Weight (Pounds) 105 pounds Weight (Calculated Kilograms) 47.893806 kilograms Patient Weight 47.627 kg Body Mass Index 18.02 kg/m2 %IBW 88 [place]/Adjusted Body Weight 120#/ 54.5 kg Weight Status Underweight Gastrointestinal Symptoms None Usual Diet At Home Regular diet Skin Integrity Comment: Gee scale: 15. +Surgical incision to left ankle per RN notes, non-pitting edema to left ankle. Current % PO Negligible <25% Estimated Energy Expenditure (kcals/day) 7773-4876 (30-35 kcal/kg IBW for wt gain promotion, wound healing) Estimated Protein Required (g/day) 65-81 (1.2-1.5 gm/kg IBW for wt gain promotion and post-op wound healing) Estimated Fluid Required (l/day) 1.6 L/day (30ml/kg IBW for maintenance) Problem/Etiology/Signs/Symptoms Underweight r/t chronic disease AEB BMI <18.5kg/m2. *ongoing Altered nutrition related labs r/t behavioral factors AEB elevated BG, non-compliance to medication. *ongoing Increased nutritional needs related to wound healing as evidenced by estimated nutritional requirements for wound healing. *new Expected Outcomes/Goals Monitor appetite and PO intake w/ goal of pt meeting more than 75% of estimated nutritional needs, labs trending WNL, normal GI function, skin integrity/wt maintenance. Dietitian Recommendations * Recommend CCHO diet w/ Rosas BID (orange) (modular provides ~180 kcal/day, 5 gm protein/day) * Encourage increase PO intakes Follow Up Moderate Risk: F/U in 3-5 days
--- NOTE | 2021-04-18 16:44 | NUR ---
Dietitian Recommendations * Recommend [facility] diet w/ Rosas BID (orange) (modular provides ~180 kcal/day, 5 gm protein/day) * Encourage increase PO intakes LP, RD Please refer to Nutrition F/U for details.
[2021-04-18] MEDS: FLUCONAZOLE 100 MG TABLET (DIFLUCAN) PO SCH (18:11)
[2021-04-18] MEDS ORDERED: FLUCONAZOLE 100 MG TABLET (DIFLUCAN) ONE (18:16)
--- NOTE | 2021-04-18 19:40 | NUR ---
ROUNDS PATIENT IN BED, WATCHING TV, VITALS STABLE. DENIES ANY PAIN AND DISCOMFORT AT THIS TIME. ASSESSMENT DONE AND DOCUMENTED. SEE FLOWSHEET. NEEDS ATTENDED TO. CALL LIGHT PLACED WITHIN REACH.
[2021-04-18 20:00] VITALS: BP_SYST 132
[2021-04-18] MEDS: ENOXAPARIN SODIUM 30 MG/0.3 ML SYRINGE SUBCUT SCH (20:57)
[2021-04-19] VITALS: BP_SYST 125
[2021-04-19] MEDS: NAFCILLIN SODIUM 2 GM in NS 100 ML IV SCH ×5 (00:03→23:28)
--- NOTE | 2021-04-19 00:15 | NUR ---
PATIENT RESTING: Patient resting quietly. No acute distress noted. Vital signs within normal range.
[2021-04-19] MEDS: INSULIN REGULAR, HUMAN 100 UNITS/ML, 10 ML VIAL (humuLIN R) SUBCUT PRN ×4 (00:18→23:29)
[2021-04-19] MEDS: KCL 20 mEq in 0.45% NS 1000 mL 1,000 ML IV SCH (05:17)
--- NOTE | 2021-04-19 06:55 | NUR ---
CLOSING NOTES PATIENT AWAKE, NO COMPLAINTS AT THIS TIME, VITALS STABLE. ALL NEEDS ATTENDED TO. CALL LIGHT PLACED WITHIN REACH.
--- NOTE | 2021-04-19 08:20 | NUR ---
AM ROUNDS: PATIENT AWAKE ,ON THE BED. WITH LEFT ANKLE DRESSING INTACT AND WITH PILLOW UNDERNEATH.LEFT UPPER ARM PICC LINE,IV FLUIDS RUNNING WELL.ROOM AIR,NO PROBLEM. CALL LIGHT WITH IN REACH. BED LOCKED AT LOWEST POSITION. BED ALARM ON. CONTINUE TO MONITOR.
[2021-04-19] MEDS: POTASSIUM CHLORIDE 20 MEQ TAB.PRT.SR PO SCH ×2 (08:38→20:35)
[2021-04-19] MEDS: FLUCONAZOLE 100 MG TABLET (DIFLUCAN) PO SCH (08:38)
[2021-04-19] MEDS: NAPH,MB-DB/K PH,MBDB 250 MG TAB PO SCH (08:38)
[2021-04-19] MEDS: INSULIN GLARGINE 100 UNITS/ML 10 ML VIAL SUBCUT SCH ×2 (08:41→20:37)
[2021-04-19 08:44] VITALS: BP_SYST 119
[2021-04-19 12:00] VITALS: BP_SYST 120
--- NOTE | 2021-04-19 12:04 | NUR ---
BLOOD SUGAR: TR=065SN/DL,REGULAR INSULIN 4 UNITS SUBQ GIVEN PER SLIDING SCALE,WITHOUT A PROBLEM.
[2021-04-19 16:30] VITALS: BP_SYST 126
--- NOTE | 2021-04-19 17:35 | NUR ---
BLOOD SUGAR: LK=574RM/DL,REGULAR INSULIN 4 UNITS SUBQ GIVEN PER SLIDING SCALE.NO PROBLEM.
--- NOTE | 2021-04-19 18:46 | NUR ---
CLOSING NOTES: PATIENT ATE DINNER. LEFT UPPER ARM PICC LINE,DRESSING CLEAN AND DRY,IV FLUIDS RUNNING WELL.CALL LIGHT WITH IN REACH. BED LOCKED AT LOWEST POSITION. SMILEY IN PLACE DRAINING TO YELLOW URINE IN LARGE AMOUNT.LEFT FOOT ELEVATED,WITH DRY DRESSING ON,INTACT. CONTINUE TO MONITOR.
[2021-04-19] MEDS: ENOXAPARIN SODIUM 30 MG/0.3 ML SYRINGE SUBCUT SCH (20:38)
[2021-04-20 00:10] VITALS: BP_SYST 121
--- NOTE | 2021-04-20 00:15 | NUR ---
Rounds Pt sleeping. No s/s of respiratory distress. No needs at this time. Fall and safety checks in place. Addendum: 04/21/21 at 0109 by Leeanna Griffiths RN wrong time
[2021-04-20] MEDS: KCL 20 mEq in 0.45% NS 1000 mL 1,000 ML IV SCH ×2 (05:20→23:40)
[2021-04-20] MEDS: NAFCILLIN SODIUM 2 GM in NS 100 ML IV SCH ×4 (05:20→23:40)
[2021-04-20 07:46] LABS: CALCIUM 7.6 mg/dL (8.4-11.0); CREATININE 0.63 mg/dL (0.55-1.30); POTASSIUM 3.4 mmol/L (3.5-5.1)
[2021-04-20 07:48] LABS: BASOPHILS % (AUTO) 0.5 % (0.0-2.0); EOSINOPHILS % (AUTO) 0.4 % (0.0-4.0); HEMATOCRIT 22.3 % (36-48); HEMOGLOBIN 7.6 g/dL (12.0-16.0); LYMPHOCYTES # (AUTO) 0.9 K/uL (1.0-5.5); LYMPHOCYTES % (AUTO) 11.3 % (20.5-51.5); MEAN CORPUSCULAR HEMOGLOBIN 29 pg (27-31); MEAN CORPUSCULAR HGB CONC 34 % (32-36); MEAN CORPUSCULAR VOLUME 86 fL (79.0-98.0); MONOCYTES # (AUTO) 0.4 K/uL (0.0-1.0); MONOCYTES % (AUTO) 5.1 % (1.7-9.3); NEUTROPHILS # (AUTO) 6.3 K/uL (1.8-7.7); NEUTROPHILS % (AUTO) 82.7 % (40.0-70.0); PLATELET COUNT (AUTO) 376 K/uL (130-430); RED CELL DISTRIBUTION WIDTH 13.8 % (9.0-15.0); WHITE BLOOD COUNT (AUTO) 7.7 K/uL (4.8-10.8)
[2021-04-20] MEDS ORDERED: INSULIN Lispro 100 UNITS/ML VIAL (humaLOG) SUBCUT SCH (08:30)
[2021-04-20] MEDS: POTASSIUM CHLORIDE 20 MEQ TAB.PRT.SR PO SCH ×2 (09:24→20:06)
[2021-04-20] MEDS: NAPH,MB-DB/K PH,MBDB 250 MG TAB PO SCH (09:24)
[2021-04-20] MEDS: FLUCONAZOLE 100 MG TABLET (DIFLUCAN) PO SCH (09:24)
[2021-04-20 09:25] VITALS: BP_SYST 95
--- NOTE | 2021-04-20 09:25 | NUR ---
Routine Scheduled po medications given per order. Patient stable at this time with no distress noted and no complaint of pain.
[2021-04-20] MEDS: INSULIN GLARGINE 100 UNITS/ML 10 ML VIAL SUBCUT SCH ×2 (09:28→20:19)
[2021-04-20 11:32] VITALS: BP_SYST 110
--- NOTE | 2021-04-20 12:19 | NUR ---
Routine Checked blood sugar: 195 mg/dl - will cover per sliding scale. Patient stable. Addendum: 04/20/21 at 1544 by Lizbet Roth RN [id number]: Scheduled IV abx given per order as well.
[2021-04-20] MEDS: INSULIN LISPRO SLIDING SCALE 100 UNITS/ML VIAL (humaLOG) SUBCUT PRN ×3 (12:45→23:55)
[2021-04-20] MEDS: INSULIN Lispro 100 UNITS/ML VIAL (humaLOG) SUBCUT SCH ×2 (12:45→18:03)
--- NOTE | 2021-04-20 15:15 | NUR ---
Routine Patient resting comfortably in bed with no distress noted. Patient stable at this time.
[2021-04-20 15:30] VITALS: BP_SYST 148
--- NOTE | 2021-04-20 16:20 | NUR ---
Routine Patient resting comfortably in bed with eyes closed. Patient stable at this time.
--- NOTE | 2021-04-20 17:55 | NUR ---
Routine Checked blood sugar: 233 mg/dl - will cover per sliding scale.
--- NOTE | 2021-04-20 18:00 | NUR ---
Routine Scheduled IV abx given per order. Scheduled insulin and coverage per sliding scale given. Patient stable throughout shift. Order to remove De La Cruz. Patient does not want De La Cruz removed yet. Will notify doctor.
--- NOTE | 2021-04-20 19:30 | NUR ---
Opening note Received report from day shift. Pt is awake eating dinner. No s/s of respiratory distress. Breathing is even and unlabored. MARYAN PICC line is intact and patent with fluids running at ordered rate. Fall and safety precautions in place with bed in lowest position, bed alarm on, and call light within reach.
[2021-04-20 20:00] VITALS: BP_SYST 109
[2021-04-20] MEDS: ENOXAPARIN SODIUM 30 MG/0.3 ML SYRINGE SUBCUT SCH (20:19)
--- NOTE | 2021-04-21 00:16 | NUR ---
Rounds Pt awake lying in bed. No s/s of acute distress. No needs at this time. Fall and safety checks in place
[2021-04-21 01:22] VITALS: BP_SYST 105
[2021-04-21] MEDS: NAFCILLIN SODIUM 2 GM in NS 100 ML IV SCH ×3 (06:19→17:06)
[2021-04-21] MEDS: INSULIN LISPRO SLIDING SCALE 100 UNITS/ML VIAL (humaLOG) SUBCUT PRN ×4 (06:29→21:49)
[2021-04-21] MEDS: INSULIN Lispro 100 UNITS/ML VIAL (humaLOG) SUBCUT SCH ×3 (06:29→17:16)
--- NOTE | 2021-04-21 06:44 | NUR ---
Closing note Pt is awake. Morning AM care done with NARROW FABRIC LOOM FIXER. No s/s of acute distress. Breathing is even and unlabored. PICC line is intact and patent with fluids running at ordered rate. All needs met throughout shift. Fall and safety precautions in place with bed in lowest position, bed alarm on, and call light within reach. Will continue to monitor until endorsed to day shift
--- NOTE | 2021-04-21 07:55 | NUR ---
Routine Patient resting comfortably in bed with no distress noted at this time. Patient stable.
[2021-04-21 08:00] VITALS: BP_SYST 100
[2021-04-21] MEDS: FLUCONAZOLE 100 MG TABLET (DIFLUCAN) PO SCH (08:29)
[2021-04-21] MEDS: NAPH,MB-DB/K PH,MBDB 250 MG TAB PO SCH (08:29)
[2021-04-21] MEDS: POTASSIUM CHLORIDE 20 MEQ TAB.PRT.SR PO SCH ×2 (08:29→21:37)
[2021-04-21] MEDS: INSULIN GLARGINE 100 UNITS/ML 10 ML VIAL SUBCUT SCH ×2 (08:32→21:46)
--- NOTE | 2021-04-21 08:32 | NUR ---
Routine Scheduled insulin and po medications given per order. Patient eating breakfast at this time; stable.
--- NOTE | 2021-04-21 11:00 | NUR ---
Routine Patient placed on bedpan. Stable at this time.
--- NOTE | 2021-04-21 12:00 | NUR ---
Routine Scheduled IV abx given per order. Checked blood sugar: 237 mg/dl - covered per sliding scale. Patient stable at this time.
[2021-04-21 12:22] VITALS: BP_SYST 104
--- NOTE | 2021-04-21 14:00 | NUR ---
Routine Patient resting comfortably in bed with no complaint of pain. Patient stable.
[2021-04-21 16:12] VITALS: BP_SYST 112
--- NOTE | 2021-04-21 16:15 | NUR ---
Routine Patient asleep at this time. Patient stable.
--- NOTE | 2021-04-21 17:06 | NUR ---
Routine Scheduled IV abx given per order. Patient stable.
--- NOTE | 2021-04-21 17:16 | NUR ---
Routine Covered per sliding scale. Patient resting quietly in bed at this time; stable.
--- NOTE | 2021-04-21 18:20 | NUR ---
Routine Patient stable throughout shift.
--- NOTE | 2021-04-21 19:30 | NUR ---
OPENING NOTE PATIENT IS AWAKE ALERT ORIENTED X4 NO SIGNS OF PAIN OR DISTRESS. BED IS LOW AND CALL LIGHT IN REACH.
[2021-04-21] MEDS: ENOXAPARIN SODIUM 30 MG/0.3 ML SYRINGE SUBCUT SCH (21:46)
--- NOTE | 2021-04-22 | NUR ---
PATIENT IS ASLEEP NO SIGNS OF PAIN OR DISTRESS. BED IS LOW AND CALL LIGHT IS IN REACH.
[2021-04-22 00:21] VITALS: BP_SYST 110
[2021-04-22] MEDS: NAFCILLIN SODIUM 2 GM in NS 100 ML IV SCH ×3 (02:35→11:40)
[2021-04-22] MEDS: INSULIN LISPRO SLIDING SCALE 100 UNITS/ML VIAL (humaLOG) SUBCUT PRN ×5 (02:48→23:29)
--- NOTE | 2021-04-22 04:00 | NUR ---
PATIENT IS ASLEEP COMFORTABLE NO SIGNS OF PAIN OR DISTRESS. BED IS LOW AND CALL LIGHT IS WITHIN REACH.
[2021-04-22] MEDS: INSULIN Lispro 100 UNITS/ML VIAL (humaLOG) SUBCUT SCH ×3 (07:16→17:30)
--- NOTE | 2021-04-22 07:18 | NUR ---
CLOSING NOTE PATIENT IS AWAKE ALERT ORIENTED X4 NO SIGNS OF PAIN OR DISTRESS. PICC LINE IS PATENT AND INTACT IN MARYAN. BED IS LOW AND CALL LIGHT IN REACH. ENDORSED PATIENT TO NEXT SHIFT NURSE
[2021-04-22] MEDS: NAPH,MB-DB/K PH,MBDB 250 MG TAB PO SCH (08:17)
[2021-04-22] MEDS: POTASSIUM CHLORIDE 20 MEQ TAB.PRT.SR PO SCH ×2 (08:17→23:18)
[2021-04-22] MEDS: FLUCONAZOLE 100 MG TABLET (DIFLUCAN) PO SCH (08:17)
[2021-04-22 08:20] VITALS: BP_SYST 102
[2021-04-22] MEDS: INSULIN GLARGINE 100 UNITS/ML 10 ML VIAL SUBCUT SCH ×2 (08:20→23:27)
--- NOTE | 2021-04-22 08:20 | NUR ---
Routine Scheduled insulin and po medications given per order. Patient eating breakfast at this time. Stable.
[2021-04-22 09:29] LABS: CALCIUM 7.9 mg/dL (8.4-11.0); CREATININE 0.65 mg/dL (0.55-1.30); POTASSIUM 3.5 mmol/L (3.5-5.1)
--- NOTE | 2021-04-22 10:15 | NUR ---
Routine Patient resting quietly in bed with eyes closed. Patient stable with no distress noted at this time.
--- NOTE | 2021-04-22 11:42 | NUR ---
Routine Scheduled IV abx given per order. Checked blood sugar: 161 mg/dl - will cover per sliding scale. Patient stable.
--- NOTE | 2021-04-22 11:57 | NUR ---
Routine Scheduled insulin given. Covered per sliding scale as well. Patient stable at this time.
[2021-04-22 12:28] VITALS: BP_SYST 101
[2021-04-22 15:38] VITALS: BP_SYST 138
--- NOTE | 2021-04-22 17:04 | NUR ---
Routine Checked blood sugar: 163 mg/dl - will cover with scheduled insulin and sliding scale. Patient stable at this time.
--- NOTE | 2021-04-22 17:30 | NUR ---
Routine Covered with scheduled insulin and per sliding scale. Patient stable at this time.
--- NOTE | 2021-04-22 18:40 | NUR ---
Routine Patient resting comfortably in bed with no distress noted. Patient stable throughout shift.
--- NOTE | 2021-04-22 19:30 | NUR ---
OPENING NOTE PATIENT IS ALERT ORIENTED X4 BREATHING ROOM AIR NO SIGNS OF PAIN OR DISTRESS. PICC LINE PATENT AND INTACT IN MARYAN. BED IS LOW AND CALL LIGHT IS WITHIN REACH.
[2021-04-22 20:00] VITALS: BP_SYST 125
[2021-04-22] MEDS: ENOXAPARIN SODIUM 30 MG/0.3 ML SYRINGE SUBCUT SCH (23:29)
--- NOTE | 2021-04-23 | NUR ---
PATIENT IS ASLEEP NO SIGNS OF PAIN OR DISTRESS. BED IS LOW AND CALL LIGHT IS WITHIN REACH.
[2021-04-23 00:21] VITALS: BP_SYST 145
[2021-04-23] MEDS: INSULIN LISPRO SLIDING SCALE 100 UNITS/ML VIAL (humaLOG) SUBCUT PRN ×4 (00:27→21:25)
--- NOTE | 2021-04-23 04:00 | NUR ---
PATIENT IS ASLEEP COMFORTABLE NO SIGNS OF PAIN OR DISTRESS. BED IS LOW AND CALL LIGHT IS IN REACH.
[2021-04-23] MEDS: INSULIN Lispro 100 UNITS/ML VIAL (humaLOG) SUBCUT SCH ×3 (06:22→18:13)
--- NOTE | 2021-04-23 06:51 | NUR ---
CLOSING NOTE PATIENT IS ALERT ORIENTED X3 NO SIGNS OF PAIN OR DISTRESS. BREATHING ROOM AIR. PICC LINE PATENT AND INTACT MARYAN. BED IS LOW AND CALL LIGHT IN REACH. ENDORSED TO NEHEMIAH AM SHIFT NURSE PATIENT IS PENDING DISCHARGE TO SNF TODAY.
[2021-04-23 08:00] VITALS: BP_SYST 112
--- NOTE | 2021-04-23 08:00 | NUR ---
Patient is A/Ox4, on room air, Bed rest. V/S stable. IV site on left UA PICC, SL, intact and patent. Patient is eating breakfast at this time. Patient urinated into bedpan and had a small BM. POC is explained; call light in place, bed locked at the lowest position.
[2021-04-23] MEDS: NAPH,MB-DB/K PH,MBDB 250 MG TAB PO SCH (08:11)
[2021-04-23] MEDS: POTASSIUM CHLORIDE 20 MEQ TAB.PRT.SR PO SCH ×2 (08:11→21:17)
[2021-04-23] MEDS: FLUCONAZOLE 100 MG TABLET (DIFLUCAN) PO SCH (08:11)
[2021-04-23] MEDS: INSULIN GLARGINE 100 UNITS/ML 10 ML VIAL SUBCUT SCH ×2 (08:12→21:22)
[2021-04-23 10:08] LABS: CALCIUM 8.5 mg/dL (8.4-11.0); CREATININE 0.72 mg/dL (0.55-1.30); POTASSIUM 3.4 mmol/L (3.5-5.1)
--- NOTE | 2021-04-23 10:10 | NUR ---
Wound care done. Tolerated without distress.
--- NOTE | 2021-04-23 12:00 | NUR ---
Patient's BS at 154. 4 units of Humalog standing order + 2 units sliding scale is given. Patient is given lunch soon after.
[2021-04-23] MEDS: NAFCILLIN SODIUM 2 GM in NS 100 ML IV SCH ×2 (12:05→18:11)
--- NOTE | 2021-04-23 13:48 | NUR ---
Patient had a moderate brown BM with urination in a bedpan. She is cleaned and repositioned for comfort.
[2021-04-23 15:27] VITALS: BP_SYST 100
--- NOTE | 2021-04-23 17:29 | NUR ---
Nutrition F/U RD reviewed pt's current EMR including diet Hx, physician notes, nursing notes, pertinent labs/meds/procedures, care trends, and care activity. Current Diet Order/Nutrition Support: [facility] diet w/ Rosas BID x5 days RD rounded to pt's bedside this afternoon. Pt reported good appetite and no c/o N/V/C/D. Pt stated she had [address] inquired about diabetic education materials provided 04/18 and whether pt had any F/U questions -- pt stated she felt comfortable w/ the info. Per EMR review, pt has averaged 94% PO intakes since 04/18 based on 10 meal records. RN reported that has been eating well, and that pt will likely require more PT prior to D/C. Current diet remains adequate/appropriate. Pt is at low nutritional risk; RD to F/U within 7 days.
--- NOTE | 2021-04-23 18:00 | NUR ---
BS 234. Lispro is given per sliding scale .
[2021-04-23 19:45] VITALS: BP_SYST 114
--- NOTE | 2021-04-23 19:45 | NUR ---
INITIAL NOTE AT INITIAL ASSESSMENT, PATIENT IS RESTING IN BED, STABLE, NO SIGNS OF RESPIRATORY DISTRESS. PATIENT VERBALIZES NO PAIN. PLAN OF CARE FOR THE NIGHT IS COMMUNICATED WITH THE PATIENT. PATIENT SUCCESSFULLY DEMONSTRATES CORRECT USAGE OF CALL LIGHT USAGE. BED IS LOCKED, ALARMED, AND AT THE LOWEST LEVEL. FALL, AND SAFETY PRECAUTIONS WILL BE IN PLACE THROUGHOUT THE SHIFT.
[2021-04-23] MEDS: ENOXAPARIN SODIUM 30 MG/0.3 ML SYRINGE SUBCUT SCH (21:22)
--- NOTE | 2021-04-24 | NUR ---
BLOOD SUGAR= 218 BLOOD SUGAR CHECK AT THIS TIME REQUIRES INSULIN COVERAGE PER [facility] ORDERED BY .
[2021-04-24] MEDS: NAFCILLIN SODIUM 2 GM in NS 100 ML IV SCH ×4 (00:36→16:53)
[2021-04-24] MEDS: INSULIN LISPRO SLIDING SCALE 100 UNITS/ML VIAL (humaLOG) SUBCUT PRN ×5 (00:47→21:14)
[2021-04-24 01:00] VITALS: BP_SYST 121
--- NOTE | 2021-04-24 06:40 | NUR ---
CLOSING NOTE PATIENT SLEPT WELL DURING THE NIGHT. AT THIS TIME, PATIENT IS RESTING IN BED, STABLE, NO SIGNS OF RESPIRATORY DISTRESS. CALL LIGHT IS WITHIN REACH. BED IS LOCKED, ALARMED, AND AT THE LOWEST LEVEL. FALL, AND SAFETY PRECAUTIONS HAVE BEEN IN PLACE THROUGHOUT THE SHIFT. WILL CONTINUE TO MONITOR UNTIL SHIFT REPORT IS GIVEN AT BEDSIDE TO AM NURSE.
[2021-04-24] MEDS: INSULIN Lispro 100 UNITS/ML VIAL (humaLOG) SUBCUT SCH ×3 (07:49→16:39)
[2021-04-24 07:50] VITALS: BP_SYST 99
--- NOTE | 2021-04-24 07:59 | NUR ---
OPENING NOTES PATIENT AAOX 4. HAS RT UPPER PICC. HUMALOG 4 UNITS GIVEN BEFORE BREAKFAST ORDERED. LUNGS BILATERALLY CLEAR. ABDOMEN SOFT AND NON DISTENDED. HAS DRESSING LEFT FOOT DRY/INTACT. BED LOW POSITION, ALARMED AND LOCKED. CALL LIGTHS WITHIN REACH.
[2021-04-24] MEDS: NAPH,MB-DB/K PH,MBDB 250 MG TAB PO SCH (08:46)
[2021-04-24] MEDS: POTASSIUM CHLORIDE 20 MEQ TAB.PRT.SR PO SCH ×2 (08:46→21:03)
[2021-04-24] MEDS: INSULIN GLARGINE 100 UNITS/ML 10 ML VIAL SUBCUT SCH ×2 (08:51→21:14)
[2021-04-24 11:42] VITALS: BP_SYST 124
[2021-04-24 15:34] VITALS: BP_SYST 124
[2021-04-24 19:35] VITALS: BP_SYST 118
[2021-04-24] MEDS: ENOXAPARIN SODIUM 30 MG/0.3 ML SYRINGE SUBCUT SCH (21:04)
--- NOTE | 2021-04-24 22:30 | NUR ---
PICC LINE DRESSING CHANGE PICC LINE DRESSING CHANGE DONE AT THIS TIME, PATIENT TOLERATED WELL. DRESSING IS SECURED AND LABELED FOR NEXT DRESSING CHANGE DUE DATE.
--- NOTE | 2021-04-24 23:30 | NUR ---
WOUND CARE WOUND CARE COMPLETED AT THIS TIME, PATIENT TOLERATED WELL. SHE STATES THAT SHE IS NOT EXPERIENCING ANY PAIN. HYGIENE CARE IS ALSO PROVIDED AT THIS TIME. FRESH LINENS PROVIDED.
[2021-04-25] VITALS: BP_SYST 120
[2021-04-25] MEDS: NAFCILLIN SODIUM 2 GM in NS 100 ML IV SCH ×5 (01:19→23:50)
[2021-04-25] MEDS: INSULIN LISPRO SLIDING SCALE 100 UNITS/ML VIAL (humaLOG) SUBCUT PRN ×4 (01:23→23:59)
--- NOTE | 2021-04-25 07:46 | NUR ---
OPENING NOTES PATIENT ASLEEP AND RESTING, VITALS SIGNS STABLE. AFEBRILE. LUNGS BILATERALLY CLEAR. ABDOMEN SOFT AND NON DISTENDED. HAS PICC LINE LEFT UPPER ARM 2 LUMEN. SALINE LOCKED. STILL HAS DRESSING ON THE LEFT FOOT. DRY AND INTACT. WILL CONTINUE TO MONITOR PATIENTS STATUS.
[2021-04-25 08:00] VITALS: BP_SYST 104
[2021-04-25] MEDS: INSULIN Lispro 100 UNITS/ML VIAL (humaLOG) SUBCUT SCH ×3 (08:11→17:51)
[2021-04-25] MEDS: POTASSIUM CHLORIDE 20 MEQ TAB.PRT.SR PO SCH ×2 (08:15→21:24)
[2021-04-25] MEDS: NAPH,MB-DB/K PH,MBDB 250 MG TAB PO SCH (08:15)
[2021-04-25] MEDS: INSULIN GLARGINE 100 UNITS/ML 10 ML VIAL SUBCUT SCH ×2 (08:18→21:29)
[2021-04-25 11:30] VITALS: BP_SYST 106
--- NOTE | 2021-04-25 12:00 | NUR ---
DRESSING ON THE PICC LINE DRY AND INTACT. DRESSING ON THE LEFT FOOT DRY AND INTACT. NO DRAINAGE NOR BLEEDING NOTED.
--- NOTE | 2021-04-25 16:00 | NUR ---
TEACHING DONE ON HOW TO DO INSULIN INJECTION AND VERBALIZED SHE UNDERSTOOD IT.
[2021-04-25 16:02] VITALS: BP_SYST 134
--- NOTE | 2021-04-25 19:30 | NUR ---
Opening note Received report from day nurse. A/Ox4. VSS. Afebrile. Denies pain or discomfort. O2 sat >96% on RA. Able to follow directions and cooperative. IVF running without complications. Provided dick care and skin care with linen change. All needs met, safety and comfort measures maintained, call light within reach. Bed to lowest locked/alarmed. On fall/aspiration precaution.
--- NOTE | 2021-04-25 19:35 | NUR ---
ENDORSED TO INCOMING NURSE RAZ MILLARD. PATIENT STILL ON BLOOD SUGAR MONITORING. LATEST BS 276 COVERAGE GIVEN. HUMALOG GIVEN SUBCU. WILL CONTINUE TO MONITOR PATIENTS STATUS.
[2021-04-25 20:00] VITALS: BP_SYST 120
--- NOTE | 2021-04-25 20:30 | NUR ---
note provided bedpan, dick-care and skin care provided. Tolerated well.
[2021-04-25] MEDS: ENOXAPARIN SODIUM 30 MG/0.3 ML SYRINGE SUBCUT SCH (21:30)
[2021-04-26 00:21] VITALS: BP_SYST 118
--- NOTE | 2021-04-26 01:20 | NUR ---
note provided bedpan, dick-care and skin care provided. Tolerated well.
--- NOTE | 2021-04-26 04:57 | NUR ---
note provided bedpan, dick-care and skin care provided. Tolerated well.
[2021-04-26] MEDS: NAFCILLIN SODIUM 2 GM in NS 100 ML IV SCH ×3 (06:09→17:26)
[2021-04-26] MEDS: INSULIN Lispro 100 UNITS/ML VIAL (humaLOG) SUBCUT SCH ×3 (06:12→17:19)
--- NOTE | 2021-04-26 06:39 | NUR ---
Closing note Pt awake, A/Ox4. VSS. Afebrile. Denies pain or discomfort. O2 sat >97% on RA. Able to follow directions and cooperative. IVF running without complications on MARYAN picc line. Provided dick care and skin care with linen change/ void x1, BMx1. All needs met, safety and comfort measures maintained, call light within reach. Bed to lowest locked/alarmed. On fall/aspiration precaution.
[2021-04-26 08:15] LABS: MEAN CORPUSCULAR HEMOGLOBIN 28 pg (27-31); MEAN CORPUSCULAR HGB CONC 33 % (32-36); MEAN CORPUSCULAR VOLUME 85 fL (79.0-98.0); PLATELET COUNT (AUTO) 538 K/uL (130-430); RED BLOOD CELL COUNT(AUTO) 2.35 MIL/uL (4.2-6.2); RED CELL DISTRIBUTION WIDTH 14.1 % (9.0-15.0); WHITE BLOOD COUNT (AUTO) 4.4 K/uL (4.8-10.8)
[2021-04-26 09:00] VITALS: BP_SYST 103
[2021-04-26 09:05] LABS: CALCIUM 7.8 mg/dL (8.4-11.0); CREATININE 0.66 mg/dL (0.55-1.30)
[2021-04-26 10:16] LABS: HEMOGLOBIN 6.6 g/dL (12.0-16.0)
[2021-04-26] MEDS: NAPH,MB-DB/K PH,MBDB 250 MG TAB PO SCH (10:39)
[2021-04-26] MEDS: POTASSIUM CHLORIDE 20 MEQ TAB.PRT.SR PO SCH ×2 (10:39→21:01)
[2021-04-26] MEDS: INSULIN GLARGINE 100 UNITS/ML 10 ML VIAL SUBCUT SCH ×2 (10:41→21:00)
[2021-04-26] MEDS: INSULIN LISPRO SLIDING SCALE 100 UNITS/ML VIAL (humaLOG) SUBCUT PRN ×2 (12:16→17:23)
[2021-04-26 12:37] VITALS: BP_SYST 119
[2021-04-26 13:38] LABS: BASOPHILS % (MANUAL) 0 % (0-2); EOSINOPHILS % (MANUAL) 4 % (0-7); LYMPHOCYTES % (MANUAL) 18 % (20-46); MONOCYTES % (MANUAL) 4 % (0-11)
--- NOTE | 2021-04-26 14:25 | NUR ---
CALLED BACK: DR WASHINGTON CALLED BACK NOTICED MD THAT PT HAS LOW GRADE FEVER 100.7F AT THIS TIME , ORDERED TYLENOL 650 MG PO Q6HRS PRN FOR FEVER, MD ORDERED TO START BLOOD TRANSFUSION ONCE FEVER REDUCED .
[2021-04-26] MEDS ORDERED: ACETAMINOPHEN 325 MG TABLET PO PRN (14:30)
--- NOTE | 2021-04-26 17:31 | NUR ---
PATIENT REASSESSED TEMPERATURE 99.9F, COOLING MEASURES APPLIED MONITOR PATIENT.
[2021-04-26 17:49] VITALS: BP_SYST 119
--- NOTE | 2021-04-26 19:30 | NUR ---
Opening note Received report from day nurse. Pt resting in bed, A/Ox4. VSS. Afebrile. Denies pain or discomfort. O2 sat >96% on RA. Has elevated temp 99.6, currently on cooling measures. Able to follow directions and cooperative. IVF running without complications. Provided dick care and skin care with linen change. All needs met, safety and comfort measures maintained, call light within reach. Bed to lowest locked/alarmed. On fall/aspiration precaution.
[2021-04-26 20:00] VITALS: BP_SYST 120
[2021-04-26] MEDS: ENOXAPARIN SODIUM 30 MG/0.3 ML SYRINGE SUBCUT SCH (21:01)
[2021-04-27] VITALS (8 sets, daily range): BP systolic 103–140
--- NOTE | 2021-04-27 | NUR ---
NOTE PT TEMP TEMP 99.4 ORAL AND 99.9 TEMPORAL. PROVIDED COOLING MEASURES AND PT REFUSED TO UNCOVER BLANKET
[2021-04-27] MEDS: NAFCILLIN SODIUM 2 GM in NS 100 ML IV SCH ×2 (00:17→06:02)
[2021-04-27] MEDS: INSULIN LISPRO SLIDING SCALE 100 UNITS/ML VIAL (humaLOG) SUBCUT PRN ×2 (01:09→17:22)
[2021-04-27] MEDS: ACETAMINOPHEN 325 MG TABLET PO PRN ×2 (02:20→14:48)
--- NOTE | 2021-04-27 02:25 | NUR ---
NOTE RECHECKED TEMP. ORAL 101.5 ORAL AND 99.8 TEMPORAL. ON COOLING MEASURES
--- NOTE | 2021-04-27 03:10 | NUR ---
note page Dr. Rodriguez regarding increased temp and PRBC
--- NOTE | 2021-04-27 04:00 | NUR ---
note wound dressing changed. Tolerated well.
--- NOTE | 2021-04-27 05:02 | NUR ---
note temp rechecked 100.1 oral. uncovered blanket and provided ice pack for cooling measures
--- NOTE | 2021-04-27 05:39 | NUR ---
note Dr. Rodriguez called back. Updated MD on pts elevated temperature and cooling measures ineffective. Made MD aware of LAB's advisement on allergic reaction to blood transfusion can increase body temp by 2 degrees. Direction by MD to held blood infusion until Tylenol wears off to check pt's true temp and report back to MD for further instruction.
[2021-04-27] MEDS: INSULIN Lispro 100 UNITS/ML VIAL (humaLOG) SUBCUT SCH ×3 (06:06→17:19)
--- NOTE | 2021-04-27 06:41 | NUR ---
Closing note Pt resting in bed with HOB elevated. A/Ox4. VSS. Afebrile. Denies pain or discomfort. O2 sat >96% on RA. Pt still have elevated temp latest 99.8, providing cooling measures. Able to follow directions and cooperative. PICC line in place and intact, no complications. All needs met, safety and comfort measures maintained, call light within reach. Bed to lowest locked/alarmed. On fall/aspiration precaution. Will endorse to day nurse.
[2021-04-27 07:37] LABS: CALCIUM 7.9 mg/dL (8.4-11.0); CREATININE 0.56 mg/dL (0.55-1.30); POTASSIUM 3.7 mmol/L (3.5-5.1)
[2021-04-27 07:47] LABS: EOSINOPHILS # (AUTO) 0.1 K/uL (0.0-0.4); EOSINOPHILS % (AUTO) 2.4 % (0.0-4.0); LYMPHOCYTES # (AUTO) 0.9 K/uL (1.0-5.5); LYMPHOCYTES % (AUTO) 20.4 % (20.5-51.5); MEAN CORPUSCULAR HEMOGLOBIN 28 pg (27-31); MEAN CORPUSCULAR HGB CONC 33 % (32-36); MEAN CORPUSCULAR VOLUME 85 fL (79.0-98.0); MONOCYTES # (AUTO) 0.4 K/uL (0.0-1.0); MONOCYTES % (AUTO) 10.2 % (1.7-9.3); PLATELET COUNT (AUTO) 538 K/uL (130-430); RED BLOOD CELL COUNT(AUTO) 2.32 MIL/uL (4.2-6.2); RED CELL DISTRIBUTION WIDTH 14.1 % (9.0-15.0); WHITE BLOOD COUNT (AUTO) 4.2 K/uL (4.8-10.8)
[2021-04-27 08:57] LABS: BASOPHILS % (AUTO) 0.7 % (0.0-2.0); HEMATOCRIT 19.7 % (36-48); HEMOGLOBIN 6.5 g/dL (12.0-16.0); NEUTROPHILS # (AUTO) 2.8 K/uL (1.8-7.7); NEUTROPHILS % (AUTO) 66.3 % (40.0-70.0)
[2021-04-27] MEDS: NAPH,MB-DB/K PH,MBDB 250 MG TAB PO SCH (09:15)
[2021-04-27] MEDS: POTASSIUM CHLORIDE 20 MEQ TAB.PRT.SR PO SCH ×2 (09:15→21:45)
[2021-04-27] MEDS: INSULIN GLARGINE 100 UNITS/ML 10 ML VIAL SUBCUT SCH ×2 (09:21→21:50)
--- NOTE | 2021-04-27 15:08 | NUR ---
0715 AM: PATIENT IS RESTING IN BED. NO ADDITIONAL DISTRESS NOTED. BED IN LOW AND LOCK POSITION. BED ALARM ON.R FOOT ELEVATED BY PILLOWS. PER RN NOC, DRESSING CHANGE TO THE RLE WAS ALREADY DONE. DRESSING CHANGE ORDER QD + PRN IF SOILED. STABLE AT THIS TIME. WILL CONT TO MONITOR. 0800 AM: PATIENT IS RESTING IN BED QUIETLY. EXPLAINED PLAN OF CARE AND PATIENT VERBALIZED UNDERSTANDING. PENDING H/H TODAY. 0856AM: HH 6.5/19.7. WILL PAGED ATTENDING DR. 0900AM: PAGED DR JARRETT. 1000AM: PERICARE PERFORMED. PATIENT HAD 1 SOFT MEDIUM BM. 1200PM: PATIENT IS RESTING IN BED. EATING HER LUNCH. NO ADDITIONAL DISTRESS NOTED. WILL CONT TO MONITOR. 1400: PATIENT IS RESTING IN BED PLAYING WITH HER PHONE. WILL CONT TO MONITOR. 1415: SPOKE WITH DR JARRETT AND MADE HIM AWARE OF HH AND TEMP OF 99.2 ORAL. PER MD OKAY TO TRANSFUSE BLOOD. 1440: VERIFIED BLOOD WITH 2 RN. PRE-TRANSFUSION VS: 99.8 ORAL, 104 HR, 17 R, 111/64 (80)BP, 02 SAT 93% RA. 1445: 1U PRBC TRANSFUSED *(STARTED). 1500: NO ASE/AR NOTED AFTER 15 MINUTES OF TRANSFUSION. NO ADDITIONAL DISTRESS NOTED. STABLE CONDITION AT THIS TIME. WILL CONT TO MONITOR.
--- NOTE | 2021-04-27 19:15 | NUR ---
OPENING NOTES: Received patient report from morning shift nurse. Patient in bed, AAOx4, breathing evenly and nonlabored on room air, no s/s of distress. Patient has a HUGO PICC line, no s/s of infection. Patient has blood transfusion running, patient tolerating it well, no s/s of transfusion reaction. Educated patient on plan of care and call light use. Patient verbalized understanding with return demonstration. Will continue to monitor. Fall/safety precaution.
--- NOTE | 2021-04-27 19:30 | NUR ---
1500: VS: 99T ORAL, 104 HR, 17 R, 110/66(83) HUGO, 02 SAT 94% RA. PRIMARY RN STAYED AT THE BEDSIDE FOR 15 MINUTES TO MONITOR ASE/AR. 1515: VS: 99T ORAL, 103 HR, 17R, 100/61 (75), 02 SAT 94% RA. 1530: VS 1515: VS: 99T ORAL, 101 HR, 17R, 96/57 (91), 02 SAT 94% RA. 1545 VS: 98.1T ORAL, 101 HR, 17R, 100/11 (79), 02 SAT 94% RA. 1600: VS: 98.1T ORAL, 98 HR, 17R, 103/60 (76), 02 SAT 93% RA. 1630: VS: 98.2T ORAL, 97 HR, 17R, 105/61 (78), 02 SAT 94% RA. 1700: VS: 98.2T ORAL, 95 HR, 17R, 110/65 (81), 02 SAT 94% RA. 1730: VS: 98.4T ORAL, 98 HR, 17R, 97/70 (86), 02 SAT 93% RA. 1745: TRANSFUSION ENDED. NO ASE/AR NOTED. PATIENT IS RESTING IN BED QUIETLY. VS: 98.4T ORAL, 101 HR, 17R, 121/62 (87), 02 SAT 94% RA. 1800: PATIENT IS RESTING IN BED EATING HER DINNER. NO ADDITIONAL DISTRESS NOTED. WILL CONT TO MONITOR. VS: 98.4T ORAL, 99 HR, 17R, 116/66 (84), 02 SAT 94% RA. 1845: PATIENT IS STILL EATING HER DINNER. NO ADDITIONAL DISTRESS NOTED. STABLE CONDITION THROUGHOUT THE BLOOD TRANSFUSION. WILL CONT TO MONITOR. 1910: SECOND UNIT OF PRBC STARTED, VERIFIED WITH 2RN. PRIMARY RN STAYED AT THE BEDSIDE FOR 15 MINUTES TO MONITOR ASE/AR. 1925: NO ASE/AR NOTED PATIENT IS RESTING IN BED QUIETLY. NO ADDITIONAL DISTRESS NOTED. STABLE AT THIS TIME. WILL CONT TO MONITOR.
[2021-04-27] MEDS: ceFAZolin SODIUM 1 GM in D5W 50 ML IV SCH (21:45)
[2021-04-27] MEDS: ENOXAPARIN SODIUM 30 MG/0.3 ML SYRINGE SUBCUT SCH (21:50)
[2021-04-28] VITALS: BP_SYST 120
--- NOTE | 2021-04-28 | NUR ---
ROUNDS: Patient in bed, eyes closed, breathing evenly and nonlabored on room air, no s/s of distress. Will continue to monitor.
[2021-04-28] MEDS: INSULIN LISPRO SLIDING SCALE 100 UNITS/ML VIAL (humaLOG) SUBCUT PRN ×3 (00:16→17:22)
[2021-04-28] MEDS: INSULIN Lispro 100 UNITS/ML VIAL (humaLOG) SUBCUT SCH ×3 (06:04→17:22)
[2021-04-28 06:31] LABS: BASOPHILS # (AUTO) 0.1 K/uL (0.0-0.2); BASOPHILS % (AUTO) 1.4 % (0.0-2.0); EOSINOPHILS # (AUTO) 0.1 K/uL (0.0-0.4); EOSINOPHILS % (AUTO) 1.4 % (0.0-4.0); HEMATOCRIT 27.2 % (36-48); HEMOGLOBIN 9.3 g/dL (12.0-16.0); LYMPHOCYTES # (AUTO) 0.8 K/uL (1.0-5.5); LYMPHOCYTES % (AUTO) 16.1 % (20.5-51.5); MEAN CORPUSCULAR HEMOGLOBIN 29 pg (27-31); MEAN CORPUSCULAR HGB CONC 34 % (32-36); MEAN CORPUSCULAR VOLUME 85 fL (79.0-98.0); MONOCYTES # (AUTO) 0.5 K/uL (0.0-1.0); MONOCYTES % (AUTO) 10.6 % (1.7-9.3); NEUTROPHILS # (AUTO) 3.6 K/uL (1.8-7.7); NEUTROPHILS % (AUTO) 70.5 % (40.0-70.0); PLATELET COUNT (AUTO) 566 K/uL (130-430); RED BLOOD CELL COUNT(AUTO) 3.21 MIL/uL (4.2-6.2); RED CELL DISTRIBUTION WIDTH 14.1 % (9.0-15.0); WHITE BLOOD COUNT (AUTO) 5.2 K/uL (4.8-10.8)
--- NOTE | 2021-04-28 06:45 | NUR ---
CLOSING NOTES: Patient in bed, AAOx4, breathing evenly and nonlabored on room air, no s/s of distress. Patient has a HUGO PICC line, no s/s of infection. Will continue to monitor and endorse care to morning shift nurse. All needs met at this time. Fall/safety precaution.
--- NOTE | 2021-04-28 07:40 | NUR ---
OPENING NOTE Received report from night nurse. Patient is alert and oriented x4. On room air and tolerating well with no signs of shortness of breath noted. IV is patent, saline locked. bed locked and in lowest position. Call light within reach. Bed alarm on. Will continue to monitor.
[2021-04-28 08:00] VITALS: BP_SYST 123
[2021-04-28] MEDS: NAPH,MB-DB/K PH,MBDB 250 MG TAB PO SCH (08:11)
[2021-04-28] MEDS: POTASSIUM CHLORIDE 20 MEQ TAB.PRT.SR PO SCH ×2 (08:11→20:46)
[2021-04-28] MEDS: ceFAZolin SODIUM 1 GM in D5W 50 ML IV SCH ×2 (08:12→20:45)
[2021-04-28] MEDS: INSULIN GLARGINE 100 UNITS/ML 10 ML VIAL SUBCUT SCH ×2 (08:17→20:46)
[2021-04-28 08:34] LABS: CALCIUM 8.5 mg/dL (8.4-11.0); CREATININE 0.52 mg/dL (0.55-1.30)
[2021-04-28 11:23] VITALS: BP_SYST 142
--- NOTE | 2021-04-28 12:41 | NUR ---
Spoke with Dr. Becerra Orders for ankle stirrup, full weight bearing, and x ray AP and lateral of left ankle. Patient had physical therapy and tolerated well. Will continue to monitor.
--- NOTE | 2021-04-28 13:48 | NUR ---
WOUND EVALUATION: Late note for 04/28/2021 at 1348 secondary to patient care. Wound Consult received from Dr. Lacy. Thank you, Dr. Lacy, for the consult. Patient received in a Sherborn Bed with an Isoflex CASEY mattress, awake, alert, and oriented. Patient is able to turn in bed independently. Gee Score is a 16. Past Medical History: Diabetes Mellitus (noncompliant, not taking any medication), Left Ankle Fracture (had an Open Reduction Internal Fixation surgery at [facility] a few weeks ago). Recent Labs: WBC 18.6, RBC 3.16, hemoglobin 9.2, hematocrit 26.8, ESR 113, potassium 2.8, chloride 109, glucose 186, POC glucose 207. Microbiology: Blood culture results x2 positive for Staph aureus. MRSA screen results negative. Blood culture results x2 in progress. Wound culture results positive for Staphylococcus aureus. Intrinsic factors that delay wound healing: Diabetes Mellitus (noncompliant), Diabetic Ketoacidosis (on admission). Extrinsic factors that delay wound healing: Decreased mobility. Wound Assessment: 1. Sacral area: Unstageable pressure ulcer. Wound bed has 90% yellow slough, 10% pink tissue. No odor, no drainage. Periwound intact. Surrounding tissue has blanchable redness. Wound measures 4.5 cm x 1.5 cm x 0.3 cm. Recommend: Cleanse wound with normal saline. Apply moisture barrier cream to periwound. Apply Venelex ointment to wound bed. Cover site with Sacral foam dressing. Perform wound care daily, and as needed for dressing soiling or dislodgment. 2. Left Distal Medial Lower Extremity, Superior to Malleolus: Abscess, present on admission. Wound bed has 70% white tissue, 30% red tissue. No odor, scant serous drainage. Periwound intact. Surrounding tissue has normal feel and is without fluctuance. Wound area measures 1.1 cm x 1.1 cm x 0.3 cm. 3. Left Distal Lateral Lower Extremity, Superior to Malleolus: Prior healed incision site that reopened, present on admission. Wound bed has 70% red tissue, 30% white tissue. No odor, scant red drainage. Wound measures 1.5 cm x 1.0 cm x 0.3 cm. Recommend: Cleanse wounds with normal saline. Apply SurePrep to dick-wounds. Apply Venelex ointment to wound beds. Cover with non-adhesive foam dressings, wrap with Nicole wrap and secure with tape. Perform wound care daily, and as needed for dressing soiling or dislodgement. Also recommend: Encourage and assist patient as needed with repositioning side to side only every 2 hours with pillow support and off-load pressure areas with pillows for pressure re-distribution. Offload, elevate and float bilateral heels with pillows. Perform skin care and monitor skin integrity Q shift. Use moisture barrier cream on buttocks and other moisture susceptible areas QID and as needed for soiling. Place patient on a P500 low air-loss mattress. Addendum: 05/04/21 at 0819 by Abdelrahman Yousif RN Addendum: Patient was informed of pressure ulcer. Educated patient on importance of turning side to side and offloading Sacral area and informing staff if she had a bowel movement or voided (as per staff she would not inform them in a timely manner).
[2021-04-28 15:20] VITALS: BP_SYST 143
--- NOTE | 2021-04-28 18:43 | NUR ---
CLOSING NOTE Patient is resting in bed. On room air and tolerating well with no signs of shortness of breath noted. IV is patent, saline locked. bed locked and in lowest position. Call light within reach. Bed alarm on. All needs met throughout shift. Will endorse to night nurse.
--- NOTE | 2021-04-28 19:30 | NUR ---
OPENING NOTES PATIENT RESTING IN BED, BED ALARM ON, CALL LIGHT WITHIN REACH, BED IN LOWEST POSITION, HOB ELEVATED. PATIENT IS ON FALL PRECAUTIONS. ENDORSED BY AM SHIFT THAT PATIENT HAS LOVENOX DVT PROPHYLAXIS AND HAS ACCUCHECK Q6H. WILL CONTINUE TO MONITOR.
[2021-04-28 20:00] VITALS: BP_SYST 140
--- NOTE | 2021-04-28 20:00 | NUR ---
PATIENT REQUESTED TO USE THE BED WEAVER. PROVIDED PATIENT BED WEAVER, TOLERATED WELL. PROVIDED PERINEAL CARE. WILL CONTINUE TO MONITOR.
[2021-04-28] MEDS: ENOXAPARIN SODIUM 30 MG/0.3 ML SYRINGE SUBCUT SCH (20:45)
--- NOTE | 2021-04-29 | NUR ---
PATIENT REQUESTED THAT SHE FELT A LITTLE TOO WARM. PROVIDED COOLING MEASURES WITH ICE PACKS. PATIENT TOLERATED WELL. WILL CONTINUE TO MONITOR.
[2021-04-29 01:50] VITALS: BP_SYST 117
[2021-04-29] MEDS: INSULIN Lispro 100 UNITS/ML VIAL (humaLOG) SUBCUT SCH ×3 (06:08→17:11)
--- NOTE | 2021-04-29 06:27 | NUR ---
CLOSING NOTES PATIENT RESTING IN BED, BED ALARM ON, CALL LIGHT WITHIN REACH, BED IN LOWEST POSITION, HOB ELEVATED. PATIENT IS ON FALL PRECAUTIONS. WILL ENDORSE TO ONCOMING SHIFT OF PATIENT'S RECENT BLOOD SUGAR. ALL NEEDS MET THROUGHOUT SHIFT.
--- NOTE | 2021-04-29 07:40 | NUR ---
OPENING NOTE Received report from night nurse. Patient is alert and oriented x4. On room air and tolerating well with no signs of shortness of breath noted. IV is patent, saline locked. Bed locked and in lowest position. Call light within reach. Bed alarm on. Will continue to monitor.
[2021-04-29 08:00] VITALS: BP_SYST 133
[2021-04-29] MEDS: ceFAZolin SODIUM 1 GM in D5W 50 ML IV SCH ×2 (08:14→22:05)
[2021-04-29] MEDS: POTASSIUM CHLORIDE 20 MEQ TAB.PRT.SR PO SCH ×2 (08:14→22:05)
[2021-04-29] MEDS: NAPH,MB-DB/K PH,MBDB 250 MG TAB PO SCH (08:14)
[2021-04-29] MEDS: INSULIN GLARGINE 100 UNITS/ML 10 ML VIAL SUBCUT SCH ×2 (08:17→22:12)
--- NOTE | 2021-04-29 11:24 | NUR ---
RN NOTE Patient assisted to bedside commode with PT. Splint on left ankle in place. Assisted patient back to bed. Large BM noted. Patient cleaned. Will continue to monitor.
[2021-04-29 11:27] VITALS: BP_SYST 120
--- NOTE | 2021-04-29 13:59 | NUR ---
Wound care Wound care done of ankle and sacral wounds. Patient assisted to bedside commode. Small bowel movement noted. Pictures taken of wounds. Will continue to monitor.
[2021-04-29 15:41] VITALS: BP_SYST 148
[2021-04-29] MEDS ORDERED: BALSAM PERU/CASTOR OIL 60 GM OINT...G. TP ONE (17:00)
[2021-04-29] MEDS: INSULIN LISPRO SLIDING SCALE 100 UNITS/ML VIAL (humaLOG) SUBCUT PRN ×2 (17:13)
--- NOTE | 2021-04-29 18:24 | NUR ---
Dr. Regino rosenbaum MD to see patient. Informed him of sacral wound. Asked if he would like surgical consult or De La Cruz catheter. No new orders at this time. Said he would speak with wound care nurse.
--- NOTE | 2021-04-29 18:34 | NUR ---
CLOSING NOTE Patient is resting in bed. On room air and tolerating well with no signs of shortness of breath noted. IV is patent, saline locked. Bed locked and in lowest position. Call light within reach. Bed alarm on. Will endorse to night nurse.
[2021-04-29 20:00] VITALS: BP_SYST 132
--- NOTE | 2021-04-29 20:00 | NUR ---
Opening notes Pt AAOx4, VSS, no c/o pain at this time. R. ankle dressing C/D/I with splint in place. MARYAN PICC double lumen dressing due 05/01 good blood return. Call light within reach. Pt in low airloss mattress. Call light within reach. To monitor.
[2021-04-29] MEDS: ENOXAPARIN SODIUM 30 MG/0.3 ML SYRINGE SUBCUT SCH (22:13)
[2021-04-30] VITALS: BP_SYST 127
--- NOTE | 2021-04-30 00:57 | NUR ---
Rounds/BS check Pt asleep, easily awakens, BS checked 253, 6 units Humulog administered HUGO per protocol. Call light within reach. To monitor.
[2021-04-30] MEDS: INSULIN LISPRO SLIDING SCALE 100 UNITS/ML VIAL (humaLOG) SUBCUT PRN ×4 (00:59→17:39)
[2021-04-30] MEDS: INSULIN Lispro 100 UNITS/ML VIAL (humaLOG) SUBCUT SCH ×3 (06:10→17:37)
--- NOTE | 2021-04-30 06:10 | NUR ---
Closing notes Pt alert, awake, no s/s distress noted. Pt assisted to BSC and pt had BM and voided, sacral dressing dry and intact. Blood sugar checked 152, total of 12 units Humalog administered. MARYAN PICC line dressing C/D/I. L. ankle dressing intact. Call light within reach. Bed low, locked, siderails up x3. To endorse to AM nurse.
[2021-04-30 08:00] VITALS: BP_SYST 117
--- NOTE | 2021-04-30 08:00 | NUR ---
Initial Note Patient awake and alert, eating breakfast. Oriented x 4. No pain or distress reported or noted. Left ankle dressing soiled with drainage, will provide wound care as ordered. Left upper arm PICC line; patent in one port, occluded in the other. Patient uses bedside commode for toileting, instructed to call for assist. Will continue to monitor. Call light in reach, bed in lowest position with alarm on. Encouraged to call.
[2021-04-30] MEDS: POTASSIUM CHLORIDE 20 MEQ TAB.PRT.SR PO SCH ×2 (09:35→21:11)
[2021-04-30] MEDS: NAPH,MB-DB/K PH,MBDB 250 MG TAB PO SCH (09:35)
[2021-04-30] MEDS: INSULIN GLARGINE 100 UNITS/ML 10 ML VIAL SUBCUT SCH ×2 (09:40→21:00)
[2021-04-30] MEDS: BALSAM PERU/CASTOR OIL 60 GM OINT...G. TP SCH (09:41)
[2021-04-30] MEDS: ceFAZolin SODIUM 1 GM in D5W 50 ML IV SCH ×2 (09:42→21:11)
[2021-04-30 11:30] VITALS: BP_SYST 127
--- NOTE | 2021-04-30 12:00 | NUR ---
Notes Patient sitting up eating lunch. Able to transfer to bedside commode with assist. Patient educated on turning to prevent further skin breakdown. Patient verbalizes understanding but refuses to turn when asked to reposition. When repositioned to one side, found patient lying on back again. Will continue to educate and monitor. Call light in reach and bed in lowest position. Encouraged to call.
[2021-04-30] MEDS: ACETAMINOPHEN 325 MG TABLET PO PRN (12:40)
--- NOTE | 2021-04-30 15:08 | NUR ---
Wound Care Planning: Late note for 04/30/[address] Lacy was informed of pressure ulcer and ordered a surgical consult with Dr. Smith.
[2021-04-30 15:59] VITALS: BP_SYST 130
--- NOTE | 2021-04-30 16:00 | NUR ---
Notes Patient lying in bed on back. Encouraged to reposition, patient accepts and repositioned to left side. States pain is controlled at this time. Encouraged to reposition self in bed to prevent further skin breakdown. Will continue to monitor and educate.
--- NOTE | 2021-04-30 16:04 | NUR ---
Nutrition F/U RD reviewed pt's current EMR record including diet Hx, physician notes, nursing notes, pertinent labs/meds/procedures, care trends, and care activity. Admission Dx: DKA Pt w/: Acute DKA, Leukocytosis, Possible Infection, Dehydration, MEAGAN, Moderate Malnutrition, Infected Left ankle wound per MD notes. SARS-Cov-2 Ag rapid 04/10 Negative Current Diet Order/Nutrition Support: [facility] diet w/ Rosas BID x12 days Subjective Info: international affairs vice president rounded to pt's bedside. Pt reported good appetite, no N/V/C/D. BM x3 today. Per EMR review, PO intake average of 95%; Abd is soft and non-distended w/ active bowel sounds, L ankle w/ 1+ pitting edema; Gee scale: 15 -- [employer] note 04/28 reviewed 1. Sacral area, unstageable pressure ulcer. 2. Left Distal Medial Lower Extremity, Superior to Malleolus: Abscess, present on admission. 2. Left Distal Lateral Lower Extremity, Superior to Malleolus: Prior healed incision site that reopened, present on admission. Pt would benefit from continuing [facility] diet w/ Rosas BID. international affairs vice president encouraged pt to continue to try to increase PO intakes for adequate nutrition. Pertinent Medications: k-dur, lantus, zofran, lovenox, Insulin Pertinent Labs: Na 141 WNL, K 3.7 WNL, BG 157 H, CRE 0.71 WNL, WBC 11.6 WNL Height: 5 feet, 4.00 inches Weight: 105 pounds, 47.849960 kilograms Body Mass Index: 18.02 kg/m2 %IBW : 88 [place]/Adjusted Body Weight: 120#/ 54.5 kg Estimated Energy Expenditure (kcals/day) 7112-3095 (30-35 kcal/kg IBW for wt gain promotion, wound healing) Estimated Protein Required (g/day) 65-81 (1.2-1.5 gm/kg IBW for wt gain promotion and post-op wound healing) Estimated Fluid Required (l/day) 1.6 L/day (30ml/kg IBW for maintenance) Problem/Etiology/Signs/Symptoms Underweight related to chronic disease as evidenced by BMI <18.0kg/m2. *ongoing Altered nutrition related labs r/t behavioral factors AEB elevated BG, non-compliance to medication. *ongoing Increased nutritional needs related to wound healing as evidenced by estimated nutritional requirements for wound healing. *ongoing Expected Outcomes/Goals Monitor appetite and PO intake w/ goal of pt meeting more than 80% of estimated nutritional needs, labs trending WNL, normal GI function, skin integrity/wt maintenance. Dietitian Recommendations * [facility]/ Rosas BID orange (Modular provides ~180 kcal/day, 5 gm protein/day) Follow Up Low Risk: F/U in 7 days
--- NOTE | 2021-04-30 16:05 | NUR ---
Dietitian Recommendations * Recommend continuing [facility] diet w/ Rosas BID orange (Modular provides ~180 kcal/day, 5 gm protein/day) LP, RD Please refer to Nutrition F/U for details.
--- NOTE | 2021-04-30 19:00 | NUR ---
Closing Note Patient sitting up in bed, on phone. No pain or distress at this time. Reinforced teaching regarding turning and repositioning to prevent further skin breakdown, patient verbalized understanding. Call light and bedside table in reach, bed in lowest position with alarm on. Will endorse to night nurse.
[2021-04-30 20:00] VITALS: BP_SYST 135
--- NOTE | 2021-04-30 20:00 | NUR ---
Opening notes Pt AAOx4, VSS, no c/o pain at this time. R. ankle dressing C/D/I with splint in place dressed per AM nurse. MARYAN PICC double lumen dressing due 05/01 good blood return. Call light within reach. Pt in low airloss mattress. Pt assisted to BSC with walker support and patient voided and had a BM, pericare provided. Call light within reach. To monitor.
[2021-04-30] MEDS: ENOXAPARIN SODIUM 30 MG/0.3 ML SYRINGE SUBCUT SCH (21:12)
[2021-05-01 00:50] VITALS: BP_SYST 130
[2021-05-01] MEDS: INSULIN LISPRO SLIDING SCALE 100 UNITS/ML VIAL (humaLOG) SUBCUT PRN ×3 (00:59→16:56)
[2021-05-01] MEDS: INSULIN Lispro 100 UNITS/ML VIAL (humaLOG) SUBCUT SCH ×3 (05:59→16:53)
--- NOTE | 2021-05-01 06:02 | NUR ---
Consultation Paged Reason for Consultation: unstageable wound Was consult called: Y Person who was notified: Josefina Consulting Physician: Dr. Smith Ordering Physician: Dr. Lacy
--- NOTE | 2021-05-01 06:40 | NUR ---
Closing notes/PICC dressing changed Pt asleep, easily awakens. BS checked 149. PICC line dressing changed, small bruising near site noted. All ports clamped. L ankle dressing intact. Maintained floated on pillow. Safety maintained. To endorse to AM nurse.
[2021-05-01 08:00] VITALS: BP_SYST 115
--- NOTE | 2021-05-01 08:00 | NUR ---
OPENING NOTES: PATIENT ASSISTED AT BEDSIDE COMMODE. BREATHING EVEN AND NON LABORED TO RA. IV IN PLACED AND INFUSING WELL. FALL,SAFETY AND ASPIRATION PRECAUTION REINFORCED. CALL LIGHT WITHIN REACH.
[2021-05-01] MEDS: POTASSIUM CHLORIDE 20 MEQ TAB.PRT.SR PO SCH ×2 (09:12→20:35)
[2021-05-01] MEDS: NAPH,MB-DB/K PH,MBDB 250 MG TAB PO SCH (09:12)
[2021-05-01] MEDS: ceFAZolin SODIUM 1 GM in D5W 50 ML IV SCH ×2 (09:12→20:34)
[2021-05-01] MEDS: BALSAM PERU/CASTOR OIL 60 GM OINT...G. TP SCH (09:15)
[2021-05-01] MEDS: INSULIN GLARGINE 100 UNITS/ML 10 ML VIAL SUBCUT SCH ×2 (09:15→20:44)
[2021-05-01 11:28] VITALS: BP_SYST 116
[2021-05-01 15:28] VITALS: BP_SYST 120
--- NOTE | 2021-05-01 18:50 | NUR ---
CLOSING NOTES: PATIENT RESTING IN BED. NO S/S OF ACUTE DISTRESS NOTED. DENIES ANY DISCOMFORT AT THIS TIME. BED LOCKED, ALARM ON AND IN LOWEST POSITION. CALL LIGHT WITHIN REACH.
--- NOTE | 2021-05-01 19:10 | NUR ---
OPENING NOTES PATIENT RESTING, NO SIGNS OF DISTRESS NOTED. CALL LIGHT WITHIN REACH, BED ALARM ON, BED AT LOWEST POSITION, BED LOCKED. FALL, RESPIRATORY, SAFETY, AND ASPIRATION PRECAUTIONS IN PLACE. PLAN OF CARE DISCUSSED WITH PATIENT. WILL CONTINUE TO MONITOR.
[2021-05-01 20:00] VITALS: BP_SYST 124
--- NOTE | 2021-05-01 20:30 | NUR ---
DR. IRVING MAKING ROUNDS. NO NEW ORDERS RECEIVED.
[2021-05-01] MEDS: ENOXAPARIN SODIUM 30 MG/0.3 ML SYRINGE SUBCUT SCH (20:42)
--- NOTE | 2021-05-02 00:15 | NUR ---
PATIENT RESTING, NO COMPLAINTS OF PAIN AT THIS TIME. PATIENT REQUESTS THE LIGHT TO STAY ON. WILL CONTINUE TO MONITOR.
[2021-05-02 00:42] VITALS: BP_SYST 118
--- NOTE | 2021-05-02 06:37 | NUR ---
CLOSING NOTES PATIENT RESTING, NO SIGNS OF DISTRESS NOTED. CALL LIGHT WITHIN REACH, BED ALARM ON, BED AT LOWEST POSITION, BED LOCKED. COMMODE AT BEDSIDE. FALL, RESPIRATORY, SAFETY, AND ASPIRATION PRECAUTIONS IN PLACE THROUGHOUT SHIFT. ALL NEEDS MET THROUGHOUT SHIFT. WILL ENDORSE CARE TO ONCOMING SHIFT.
[2021-05-02 08:00] VITALS: BP_SYST 113
[2021-05-02] MEDS: NAPH,MB-DB/K PH,MBDB 250 MG TAB PO SCH (08:14)
[2021-05-02] MEDS: ceFAZolin SODIUM 1 GM in D5W 50 ML IV SCH ×2 (08:14→20:40)
[2021-05-02] MEDS: POTASSIUM CHLORIDE 20 MEQ TAB.PRT.SR PO SCH ×2 (08:14→20:39)
[2021-05-02] MEDS: INSULIN Lispro 100 UNITS/ML VIAL (humaLOG) SUBCUT SCH ×3 (08:18→17:36)
[2021-05-02] MEDS: INSULIN GLARGINE 100 UNITS/ML 10 ML VIAL SUBCUT SCH ×2 (08:19→20:50)
[2021-05-02] MEDS: BALSAM PERU/CASTOR OIL 60 GM OINT...G. TP SCH (08:19)
[2021-05-02 12:00] VITALS: BP_SYST 119
[2021-05-02 15:59] LABS: CALCIUM 8.1 mg/dL (8.4-11.0); CREATININE 0.65 mg/dL (0.55-1.30); POTASSIUM 4.1 mmol/L (3.5-5.1)
[2021-05-02 16:00] VITALS: BP_SYST 145
--- NOTE | 2021-05-02 16:36 | NUR ---
MD KIM PAGED YESSICA GODINEZ AT [phone] SPOKE WITH .
--- NOTE | 2021-05-02 16:40 | NUR ---
NOTE Dr Smith called back and update on pt's status given. MD will come in tomorrow to assess pt. Dr Lacy called and notified.
[2021-05-02] MEDS: INSULIN LISPRO SLIDING SCALE 100 UNITS/ML VIAL (humaLOG) SUBCUT PRN ×3 (17:38→23:40)
--- NOTE | 2021-05-02 18:25 | NUR ---
Note Pt was checked on q1' and PRN all shift for needs and care. Pt's bed in low position and bed alarm on all shift. Pt was assisted OOB to BSC with FWW all shift. IV in MARYAN PICC intact and patent all shift. Pt's dressing in sacral area was changed and cleaned 2X this shift. Left foot dressing in tact in heel boot. No pain noted all shift. Dr Lacy did rounds this afternoon at bedside. Call light within reach. No needs noted all shift. Pt stable at this time.
[2021-05-02 20:00] VITALS: BP_SYST 130
[2021-05-02] MEDS: ENOXAPARIN SODIUM 30 MG/0.3 ML SYRINGE SUBCUT SCH (20:45)
--- NOTE | 2021-05-02 22:00 | NUR ---
ROUNDING NOTES Patient resting in bed - no s/s pain or distress noted. Respirations even and unlabored - head of bed elevated. IV site patent - no s/s redness, infection, or infiltration. Bed locked and in lowest position. Call light within reach - bed alarm on.
[2021-05-03] VITALS: BP_SYST 128
[2021-05-03] MEDS: INSULIN LISPRO SLIDING SCALE 100 UNITS/ML VIAL (humaLOG) SUBCUT PRN ×4 (06:19→23:33)
[2021-05-03] MEDS: INSULIN Lispro 100 UNITS/ML VIAL (humaLOG) SUBCUT SCH ×3 (06:19→17:24)
[2021-05-03 08:00] VITALS: BP_SYST 116
--- NOTE | 2021-05-03 08:00 | NUR ---
Initial Note Patient lying in bed on back. Awake and oriented x 4. No acute pain or distress. Educated on repositioning and encouraged patient to turn onto left side to relieve her sacrum and prevent further skin breakdown. Patient verbalized understanding and agreed to turn at this time. Will continue to provide education. Patient able to transfer with assist via walker, will continue to encourage and assist with ADLs. Bed locked in lowest position. Bedside commode and walker within reach. Bedside table and call light in reach, encouraged to call.
[2021-05-03] MEDS: NAPH,MB-DB/K PH,MBDB 250 MG TAB PO SCH (09:15)
[2021-05-03] MEDS: POTASSIUM CHLORIDE 20 MEQ TAB.PRT.SR PO SCH ×2 (09:15→21:19)
[2021-05-03] MEDS: BALSAM PERU/CASTOR OIL 60 GM OINT...G. TP SCH (09:16)
[2021-05-03] MEDS: ceFAZolin SODIUM 1 GM in D5W 50 ML IV SCH ×2 (09:16→21:19)
[2021-05-03] MEDS: INSULIN GLARGINE 100 UNITS/ML 10 ML VIAL SUBCUT SCH ×2 (09:18→21:22)
[2021-05-03 10:26] LABS: CALCIUM 8.4 mg/dL (8.4-11.0); CREATININE 0.48 mg/dL (0.55-1.30); POTASSIUM 3.6 mmol/L (3.5-5.1)
[2021-05-03 12:00] VITALS: BP_SYST 113
--- NOTE | 2021-05-03 12:00 | NUR ---
Notes Patient lying in bed on back, encouraged to lay on right side. Patient agreed to turn at this time, repositioned for comfort. Assisted with toileting. No acute pain or distress. Call light in reach and bed in lowest position.
[2021-05-03 16:00] VITALS: BP_SYST 130
--- NOTE | 2021-05-03 16:00 | NUR ---
Notes Patient awake and alert, refused to change position at this time. Will continue to educate on repositioning to prevent further skin breakdown. Denies pain or discomfort. No distress noted. Assisted to bedside commode. Bed placed in lowest position. Call light and bedside table in reach, encouraged to call.
[2021-05-03 19:00] VITALS: BP_SYST 137
--- NOTE | 2021-05-03 19:00 | NUR ---
Closing Note Patient lying in bed on back, encouraged to turn and reposition, turned onto right side. No acute pain or distress. Bedside table and call light in reach. Bed in lowest position. Will endorse to night nurse.
--- NOTE | 2021-05-03 19:15 | NUR ---
change of shift.pt.presents quiescent affect;calm,resting.pt.presents wound;lt.foot w/in protective ortho-boot.pt.presents picc line location lt.bicept intact iv lock.no c/o pain,nausea.pt.utilizing the bsc w/in access of the pt.general status stable. respiratory status stable@room air.call light/telephone w/in access of the pt.
--- NOTE | 2021-05-03 20:00 | NUR ---
pt.assessed.v/s assessed values wnl.no c/o pain,nausea.i have apprised the pt.that snacks/beverages are available w/in the shift.no requests posited@this hour.picc line intact iv lock.pt.assisted to the bsc.call light/telephone placed w/in access of the pt.post return to bed.
--- NOTE | 2021-05-03 21:00 | NUR ---
2100pmedications administered.pt.capable ingest the po medications w/out difficulty.no c/o pain,nausea.no requests posited @this hour.call light/telephone w/in access of the pt.bsc w/in access of the pt.
[2021-05-03] MEDS: ENOXAPARIN SODIUM 30 MG/0.3 ML SYRINGE SUBCUT SCH (21:23)
--- NOTE | 2021-05-03 22:00 | NUR ---
pt.assessed.pt.presents quiescent affect;calm,resting.no c/o pain,nausea.no requests posited@this hour.pt.capable to reposition self.general status stable.respiratory status stable.call light/telephone w/in access of the pt.bsc w/in access of the pt.
--- NOTE | 2021-05-04 | NUR ---
pt.assessed.v/s assessed values wnl.no c/o pain,nausea.blood glucose assessed value 173mg/dl.i have administered insulin;humalog;2-u pr sliding scale. picc line intact iv lock.pt.assisted to the bsc.bsc placed w/in access of the pt.call light/telephone placed w/in access of of the per return to bed.
[2021-05-04 00:32] VITALS: BP_SYST 123
--- NOTE | 2021-05-04 02:00 | NUR ---
pt.assessed.pt.presents quiescent affect;calm,somnolent.per flacc pain mgx pt.absent facial grimaces/body posturing. bsc w/in access of the pt.pt.capable to reposition self.call light/telephone w/in access of the pt.
--- NOTE | 2021-05-04 04:00 | NUR ---
pt.assessed.pt.presents quiescent affect;calm,somnolent.per flacc pain mgx pt.absent facial grimaces/body posturing. pt.capable to reposition self.bsc w/in access of the pt.call light/telephone w/in access of the pt.
[2021-05-04] MEDS: INSULIN Lispro 100 UNITS/ML VIAL (humaLOG) SUBCUT SCH ×3 (06:25→17:04)
[2021-05-04 08:00] VITALS: BP_SYST 115
--- NOTE | 2021-05-04 08:00 | NUR ---
Initial Note Patient awake and alert, oriented x 4. No acute distress. Reports pain 3/10 to left leg. Encouraged patient to turn onto side, patient agrees. Education provided on repositioning to prevent further skin breakdown; patient verbalized understanding. Uses bedside commode for toileting, encouraged use. Bedside table and call light in reach. Bed in lowest position. Encouraged to call.
[2021-05-04] MEDS: NAPH,MB-DB/K PH,MBDB 250 MG TAB PO SCH (09:17)
[2021-05-04] MEDS: ceFAZolin SODIUM 1 GM in D5W 50 ML IV SCH ×2 (09:18→22:20)
[2021-05-04] MEDS: CHOLECALCIFEROL (VITAMIN D3) 5,000 UNIT TABLET PO SCH (09:18)
[2021-05-04] MEDS: POTASSIUM CHLORIDE 20 MEQ TAB.PRT.SR PO SCH ×2 (09:18→22:20)
[2021-05-04] MEDS: BALSAM PERU/CASTOR OIL 60 GM OINT...G. TP SCH (09:19)
[2021-05-04] MEDS: INSULIN GLARGINE 100 UNITS/ML 10 ML VIAL SUBCUT SCH ×2 (09:31→23:18)
[2021-05-04] MEDS: ACETAMINOPHEN 325 MG TABLET PO PRN (09:32)
[2021-05-04] MEDS: INSULIN LISPRO SLIDING SCALE 100 UNITS/ML VIAL (humaLOG) SUBCUT PRN ×3 (11:25→23:19)
[2021-05-04 12:00] VITALS: BP_SYST 120
--- NOTE | 2021-05-04 12:00 | NUR ---
Notes Patient found on backside, encouraged to turn to left side at this time. Patient agrees and repositions self after assistance with toileting. Pain is controlled at this time, no distress. Call light in reach and bed in lowest position. Will continue to monitor.
[2021-05-04 16:00] VITALS: BP_SYST 140
--- NOTE | 2021-05-04 16:00 | NUR ---
Notes Patient resting at this time on back. Encouraged patient to reposition. Turned to right side at this time. Education provided on turning every 2 hours, verbalized understanding. All needs addressed. Call light in reach, bed in lowest position. Encouraged to call.
--- NOTE | 2021-05-04 18:50 | NUR ---
Closing Note Patient finishing dinner, no pain or distress noted at this time. Stressed importance of continuing to reposition self, patient verbalized understanding. All needs met. Call light, bedside table, bedside commode, and walker within reach. Bed locked in lowest position. Will endorse to night nurse.
[2021-05-04 20:00] VITALS: BP_SYST 127
[2021-05-04] MEDS: ENOXAPARIN SODIUM 30 MG/0.3 ML SYRINGE SUBCUT SCH (22:21)
[2021-05-05] VITALS: BP_SYST 132
[2021-05-05 00:55] VITALS: BP_SYST 127
[2021-05-05] MEDS: INSULIN Lispro 100 UNITS/ML VIAL (humaLOG) SUBCUT SCH ×3 (06:18→17:40)
[2021-05-05 08:00] VITALS: BP_SYST 122
[2021-05-05] MEDS: INSULIN GLARGINE 100 UNITS/ML 10 ML VIAL SUBCUT SCH ×3 (08:37→21:54)
[2021-05-05] MEDS: NAPH,MB-DB/K PH,MBDB 250 MG TAB PO SCH (08:38)
[2021-05-05] MEDS: ceFAZolin SODIUM 1 GM in D5W 50 ML IV SCH ×2 (08:38→21:50)
[2021-05-05] MEDS: POTASSIUM CHLORIDE 20 MEQ TAB.PRT.SR PO SCH ×2 (08:38→21:50)
[2021-05-05] MEDS: BALSAM PERU/CASTOR OIL 60 GM OINT...G. TP SCH (08:39)
[2021-05-05] MEDS: CHOLECALCIFEROL (VITAMIN D3) 5,000 UNIT TABLET PO SCH (08:39)
[2021-05-05 12:25] VITALS: BP_SYST 127
[2021-05-05 16:46] VITALS: BP_SYST 121
[2021-05-05] MEDS ORDERED: [UNRECOGNIZED DRUG - REMARK] XX SCH (17:00)
--- NOTE | 2021-05-05 18:42 | NUR ---
pt awake,alert,PICC line in left upper arm patent and intact,left ankle turns outward and wearing brace on,post op shoe provided,up and using bedside commode with assist blood sugar decreased to 42 this am, sayed came and notified,no sliding scale coverage at bedtime per dr requests,hourly rounds made,safety maintained.
--- NOTE | 2021-05-05 19:10 | NUR ---
OPENING NOTES PATIENT RESTING, NO SIGNS OF PAIN AT THIS TIME. DISCUSSED PLAN OF CARE WITH PATIENT. CALL LIGHT WITHIN REACH, BED ALARM ON, BED LOCKED, BED AT LOWEST POSITION. PATIENT DEMONSTRATES PROPER CALL LIGHT USAGE. FALL, RESPIRATORY, ASPIRATION, AND SAFETY PRECAUTIONS IN PLACE. WILL CONTINUE TO MONITOR.
[2021-05-05 20:00] VITALS: BP_SYST 134
[2021-05-05] MEDS: ENOXAPARIN SODIUM 30 MG/0.3 ML SYRINGE SUBCUT SCH (21:49)
--- NOTE | 2021-05-06 00:20 | NUR ---
PATIENT USES CALL LIGHT TO ASK FOR ASSISTANCE TO THE COMMODE. NO SIGNS OF DISTRESS AFTER GETTING BACK TO BED. WILL CONTINUE TO MONITOR.
[2021-05-06 00:26] VITALS: BP_SYST 125
[2021-05-06] MEDS: INSULIN LISPRO SLIDING SCALE 100 UNITS/ML VIAL (humaLOG) SUBCUT PRN (06:01)
--- NOTE | 2021-05-06 06:29 | NUR ---
CLOSING NOTES PATIENT RESTING, NO SIGNS OF DISTRESS THROUGHOUT SHIFT. CALL LIGHT WITHIN REACH, BED ALARM ON, BED LOCKED, BED AT LOWEST POSITION. PATIENT USED CALL LIGHT THROUGHOUT SHIFT. FALL, RESPIRATORY, ASPIRATION, AND SAFETY PRECAUTIONS IN PLACE THROUGHOUT SHIFT. ALL NEEDS MET THROUGHOUT SHIFT. WILL ENDORSE CARE TO ONCOMING SHIFT.
[2021-05-06] MEDS: INSULIN Lispro 100 UNITS/ML VIAL (humaLOG) SUBCUT SCH ×2 (08:39→12:12)
[2021-05-06] MEDS: INSULIN GLARGINE 100 UNITS/ML 10 ML VIAL SUBCUT SCH ×2 (08:40→21:00)
[2021-05-06] MEDS: ceFAZolin SODIUM 1 GM in D5W 50 ML IV SCH ×2 (08:59→21:00)
[2021-05-06] MEDS: BALSAM PERU/CASTOR OIL 60 GM OINT...G. TP SCH (08:59)
[2021-05-06] MEDS: POTASSIUM CHLORIDE 20 MEQ TAB.PRT.SR PO SCH ×2 (10:01→21:00)
[2021-05-06] MEDS: CHOLECALCIFEROL (VITAMIN D3) 5,000 UNIT TABLET PO SCH (10:01)
[2021-05-06] MEDS: NAPH,MB-DB/K PH,MBDB 250 MG TAB PO SCH (10:01)
[2021-05-06 12:25] VITALS: BP_SYST 91
[2021-05-06 12:26] VITALS: BP_SYST 117
--- NOTE | 2021-05-06 19:15 | NUR ---
OPENING NOTES RECEIVED PATIENT IN BED AWAKE. DENIES PAIN. BREATHING NON LABORED ON ROOM AIR. BED IN LOWEST LOCKED POSITION WITH ALARM ON. CALL LIGHT WITH IN REACH.
[2021-05-06 21:00] VITALS: BP_SYST 138
[2021-05-06] MEDS: ENOXAPARIN SODIUM 30 MG/0.3 ML SYRINGE SUBCUT SCH (21:00)
--- NOTE | 2021-05-06 21:40 | NUR ---
HS CARE HS CARE DONE. ASSISTED PATIENT WITH BED SIDE COMMODE USE. ALL LINENS CHANGED.
[2021-05-07] MEDS: INSULIN LISPRO SLIDING SCALE 100 UNITS/ML VIAL (humaLOG) SUBCUT PRN ×3 (00:10→17:22)
[2021-05-07 00:30] VITALS: BP_SYST 139
--- NOTE | 2021-05-07 00:45 | NUR ---
ROUNDS PATIENT RESTING IN BED. NO DISTRESS NOTED. VITAL SIGNS STABLE. LEFT LEG KEPT ELEVATED ON A PILLOW.
--- NOTE | 2021-05-07 03:20 | NUR ---
OOB ASSISTED PATIENT WITH BED SIDE COMMODE USE.
--- NOTE | 2021-05-07 06:00 | NUR ---
WOUND CARE WOUND CARE DONE ON LEFT ANKLE AND SACRAL WOUNDS.
[2021-05-07] MEDS: INSULIN Lispro 100 UNITS/ML VIAL (humaLOG) SUBCUT SCH ×3 (06:18→17:21)
--- NOTE | 2021-05-07 06:45 | NUR ---
CLOSING NOTES NO CHANGE IN PATIENT CONDITION. PATIENT NEEDS ATTENDED.
--- NOTE | 2021-05-07 07:55 | NUR ---
Opening Notes Patient is awake, alert and oriented x4. No resp distress noted. Breathing is even and unlabored. Pt remains on RA at this time. Pt denies any SOB/sore throat. Pt reports intermittent dry cough, no phelgm. Pt denies any pain at this time, some discomfort on left foot, no pain meds at this time. PICC line noted on MARYAN, dressing clean and dry. Flushing well, blood return noted, TKO. Pt remains on bedrest at this time, able to transfer from bed to [facility] with assistance with FWW. Pt reports some dizziness upon standing. All needs met at this time. Safety and fall precautions in place. Bed in lowest, alarm on, locked. Will continue to monitor.
[2021-05-07 08:00] VITALS: BP_SYST 118
[2021-05-07 08:04] LABS: EOSINOPHILS # (AUTO) 0.1 K/uL (0.0-0.4); HEMATOCRIT 25.8 % (36-48); HEMOGLOBIN 8.5 g/dL (12.0-16.0); LYMPHOCYTES # (AUTO) 0.9 K/uL (1.0-5.5); MEAN CORPUSCULAR HEMOGLOBIN 28 pg (27-31); MEAN CORPUSCULAR HGB CONC 33 % (32-36); MEAN CORPUSCULAR VOLUME 84 fL (79.0-98.0); MONOCYTES # (AUTO) 0.5 K/uL (0.0-1.0); MONOCYTES % (AUTO) 9.1 % (1.7-9.3); RED BLOOD CELL COUNT(AUTO) 3.09 MIL/uL (4.2-6.2); RED CELL DISTRIBUTION WIDTH 14.6 % (9.0-15.0); WHITE BLOOD COUNT (AUTO) 5.8 K/uL (4.8-10.8)
[2021-05-07 08:25] LABS: ALBUMIN 1.4 g/dL (3.4-4.8); CALCIUM 8.7 mg/dL (8.4-11.0); CREATININE 0.54 mg/dL (0.55-1.30); POTASSIUM 3.5 mmol/L (3.5-5.1); TOTAL BILIRUBIN 0.2 mg/dL (0.0-1.0)
[2021-05-07] MEDS: NAPH,MB-DB/K PH,MBDB 250 MG TAB PO SCH (09:07)
[2021-05-07] MEDS: CHOLECALCIFEROL (VITAMIN D3) 5,000 UNIT TABLET PO SCH (09:07)
[2021-05-07] MEDS: POTASSIUM CHLORIDE 20 MEQ TAB.PRT.SR PO SCH ×2 (09:08→21:04)
[2021-05-07] MEDS: ceFAZolin SODIUM 1 GM in D5W 50 ML IV SCH ×2 (09:08→21:50)
[2021-05-07] MEDS: BALSAM PERU/CASTOR OIL 60 GM OINT...G. TP SCH (09:08)
--- NOTE | 2021-05-07 09:15 | NUR ---
CRITICAL LAB: ERICA FROM Laboratory called with critical lab value PLATELETS [id number]. Medical record number and patient name verified. Read back of values done. DR JARRETT PAGED of value. AWAITING CALLBACK.
[2021-05-07 09:17] LABS: PLATELET COUNT (AUTO) 778 K/uL (130-430)
[2021-05-07] MEDS: INSULIN GLARGINE 100 UNITS/ML 10 ML VIAL SUBCUT SCH ×2 (09:20→21:06)
--- NOTE | 2021-05-07 10:00 | NUR ---
Notes Patient is asleep at this time. No resp distress noted. Breathing is even and unlabored. Pt denies any pain at this time. Will continue to monitor.
--- NOTE | 2021-05-07 12:00 | NUR ---
Notes Nurse assisted patient to BSC with nurse assistance and FWW. Pt reports dizziness upon rising, pt educated to rise slowly. No acute distress noted. Pt is noted with a soft BM, large, and urine output. Nurse assisted pt back to bed. Repositioned in bed with pillows. Pt was encouraged to turn Q2H to help with pressure injury. Pt aware and agreed. Will continue to monitor.
[2021-05-07 12:30] VITALS: BP_SYST 126
--- NOTE | 2021-05-07 13:15 | NUR ---
Wound CARE Pt is noted with a stage 2 pressure injury on sacrum area: 95% pink with 5% white. Wound care was provided on sacrum area. Cleanse with NS, pat dry, apply Venelex to wound bed. Apply foam dressing.
[2021-05-07 13:56] LABS: BASOPHILS % (AUTO) 0.9 % (0.0-2.0); NEUTROPHILS # (AUTO) 4.2 K/uL (1.8-7.7)
--- NOTE | 2021-05-07 14:00 | NUR ---
Notes Nurse and nursing resident, Brunilda repositioned patient in bed with pillows on left side. Pt denies any pain at this time. No acute distress noted. Will continue to monitor.
--- NOTE | 2021-05-07 16:05 | NUR ---
Nutrition F/U RD reviewed pt's current EMR record including diet Hx, physician notes, nursing notes, pertinent labs/meds/procedures, care trends, and care activity. Admission Dx: DKA Pt w/: Acute DKA, Leukocytosis, Possible Infection, Dehydration, MEAGAN, Moderate Malnutrition, Infected Left ankle wound per MD notes. SARS-Cov-2 Ag rapid 04/10 Negative Current Diet Order/Nutrition Support: [facility]/ Rosas BID x19 days Subjective Info: RD rounded to pt's bedside. Pt reported good appetite, tolerating diet well. No N/V/C/D. Pt stated that she has been taking Rosas regularly, but prefers to stick to fruit punch flavor. RD notified [facility] staff. Pt had no nutrition-related concerns. Per EMR review, PO intake average of 91% x17 meals; abd is soft and non-distended w/ active bowel sounds; last BM x1 05/07; Gee scale: 19 -- [place] [employer] note 04/28 reviewed 1. Sacral area, unstageable pressure ulcer. 2. Left Distal Medial Lower Extremity, Superior to Malleolus: Abscess, present on admission. 2. Left Distal Lateral Lower Extremity, Superior to Malleolus: Prior healed incision site that reopened, present on admission; L ankle w/ 2+ pitting edema. Pt is likely meeting nutritional needs. Pertinent Medications: VIT D3, humalog Pertinent Labs: BG 144 H, CRE 0.54 L, WBC 5.8 WNL Height: 5'4" Weight: 105#/47 kg (04/13) -- stable Body Mass Index: 18.02 kg/m2 %IBW : 88 [place]/Adjusted Body Weight: 120#/ 54.5 kg Estimated Energy Expenditure (kcals/day) 2594-0982 (30-35 kcal/kg IBW for wt gain promotion, wound healing) Estimated Protein Required (g/day) 65-81 (1.2-1.5 gm/kg IBW for wt gain promotion and post-op wound healing) Estimated Fluid Required (l/day) 1.6 L/day (30ml/kg IBW for maintenance) Problem/Etiology/Signs/Symptoms Underweight related to chronic disease as evidenced by BMI <18.0kg/m2. *ongoing Altered nutrition related labs r/t behavioral factors AEB elevated BG, non-compliance to medication. *ongoing Increased nutritional needs related to wound healing as evidenced by estimated nutritional requirements for wound healing. *ongoing Expected Outcomes/Goals Monitor appetite and PO intake w/ goal of pt meeting more than 80% of estimated nutritional needs, labs trending WNL, normal GI function, skin integrity/wt maintenance. Dietitian Recommendations * Recommend continuing [facility] diet w/ Rosas BID (fruit punch) (Modular provides ~180 kcal/day, 5 gm protein/day) Follow Up Low Risk: F/U in 7 days
--- NOTE | 2021-05-07 16:09 | NUR ---
Dietitian Recommendations * Recommend continuing [facility] diet w/ Rosas BID (fruit punch) (Modular provides ~180 kcal/day, 5 gm protein/day) LP, RD Please refer to Nutrition F/U for details.
[2021-05-07 16:17] VITALS: BP_SYST 121
--- NOTE | 2021-05-07 18:20 | NUR ---
Patient is being seen and examined by DR JARRETT.
--- NOTE | 2021-05-07 18:28 | NUR ---
Closing Notes Patient is awake, alert and oriented x3-4. No resp distress noted. Breathing is even and unlabored. Pt denies any pain at this time. PICC line on MARYAN, intact, dressing clean and dry, double lumen. KCl 20 mEQ + D5 1/2 NS @ 100 cc/hr, infusing well at this time. Left foot dressing intact, no signs of drainage at this time. Pt is ambulatory to BSC with FWW, supervision needed. All needs met at this time. Safety and fall precautions in place. Bed in lowest position, locked. Will continue to monitor.
--- NOTE | 2021-05-07 19:30 | NUR ---
initial notes: pt is in bed, watching tv, no sign of pain, no sob. stable vital sign. picc line to left upper arm dry and intact. discuss POC, pt understand. needs attended. safety precaution in place. call light in reach. will monitor.
[2021-05-07 19:40] VITALS: BP_SYST 124
[2021-05-07] MEDS: ENOXAPARIN SODIUM 30 MG/0.3 ML SYRINGE SUBCUT SCH (21:04)
[2021-05-07] MEDS ORDERED: ceFAZolin SODIUM 1 GM VIAL ONE (21:31)
--- NOTE | 2021-05-08 | NUR ---
sleeping, no pain, stable vital sign. needs attended.
[2021-05-08 01:04] VITALS: BP_SYST 143
[2021-05-08] MEDS: INSULIN Lispro 100 UNITS/ML VIAL (humaLOG) SUBCUT SCH ×3 (06:27→17:57)
--- NOTE | 2021-05-08 06:45 | NUR ---
closing: pt is awake, alert. dressing and wound care done to left ankle. no pain, not distress. needs attended the whole shift. call light in reach, side rails up. low bed position. will continue to monitor until sbar reporting is given to am rn.
[2021-05-08 07:00] VITALS: BP_SYST 110
[2021-05-08] MEDS: BALSAM PERU/CASTOR OIL 60 GM OINT...G. TP SCH (09:00)
--- NOTE | 2021-05-08 09:00 | NUR ---
START OF SHIFT REPORT RECV'D REPORT FROM NIGHT NURSE MAKI. PT. IS SITTING UP IN BED AAOX4. PT. DENIES PAIN. NON-LABORED BREATHING WITH NO SOB. HR RRR. MARYAN DOUBLE LUMEN PICC INTACT AND PATENT WITH NO S/S OF INFECTION OR INFILTRATION. LLE EDEMATOUS WITH +2 PITTING, AND HAS BRACE ON. WOUND CARE ON LEFT ANKLE AND LEFT COCCYX DONE BY NIGHT NURSE MAKI. WOUNDS HAVE NO S/S OF INFECTION. ALL SAFETY PRECAUTIONS MAINTAINED WITH BED IN LOWEST POSITION AND CALL SIEGEL WITHIN REACH.
[2021-05-08] MEDS: INSULIN GLARGINE 100 UNITS/ML 10 ML VIAL SUBCUT SCH ×2 (09:40→20:18)
[2021-05-08] MEDS: NAPH,MB-DB/K PH,MBDB 250 MG TAB PO SCH (09:45)
[2021-05-08] MEDS: POTASSIUM CHLORIDE 20 MEQ TAB.PRT.SR PO SCH ×2 (09:45→20:09)
[2021-05-08] MEDS: CHOLECALCIFEROL (VITAMIN D3) 5,000 UNIT TABLET PO SCH (09:46)
[2021-05-08] MEDS: ceFAZolin SODIUM 1 GM in D5W 50 ML IV SCH ×2 (11:28→20:08)
[2021-05-08 12:41] VITALS: BP_SYST 132
[2021-05-08 16:33] VITALS: BP_SYST 140
[2021-05-08 19:00] VITALS: BP_SYST 140
--- NOTE | 2021-05-08 19:15 | NUR ---
change of shift pt.presents quiescent affect calm,resting.pt.presents picc line location:lt.bicept intact iv lock.pt.presents wounds;sacrum,lt.foot/ankle w splint.pt.utilizing the bsc w/in access of the pt.pt.capable to reposition self.general status stable.respiratory status stable;unlabored@room air.call light/telephone w/in access of the pt.
--- NOTE | 2021-05-08 19:20 | NUR ---
END SHIFT REPORT REPORT GIVEN AND ENDORSED PT. TP NIGHT NURSE. PT. AAOX4 DENIES PAIN AND IN STABLE CONDITION. IV INTACT AND PATENT WITH NO S/S OF INFECTION OR INFILTRATION. TOLERATED ABTS WELL WITH NOT AE.
[2021-05-08 20:00] VITALS: BP_SYST 140
--- NOTE | 2021-05-08 20:00 | NUR ---
pt.assessed.v/s assessed values wnl.no c/o pain,nausea.i have apprised the pt.that snacks/beverages are available w/in the shift no requests posited@this hour.picc line intact iv lock.pt.capable to reposition self.pt.bsc.w/in access of the pt.call light/telephone w/in access of the pt.
[2021-05-08] MEDS: ENOXAPARIN SODIUM 30 MG/0.3 ML SYRINGE SUBCUT SCH (20:18)
--- NOTE | 2021-05-08 21:00 | NUR ---
2100p medication administered.pt.capable to ingest the po medications w/out difficulty.no requests posited@this hour. call light/telephone w/in access of the pt.
--- NOTE | 2021-05-08 22:00 | NUR ---
pt.assessed.pt.presents quiescent affect calm,resting.no c/o pain,nausea.no requests posited@this hour.pt.capable to reposition self.call light/telephone w/in access of the pt.
[2021-05-08] MEDS: INSULIN LISPRO SLIDING SCALE 100 UNITS/ML VIAL (humaLOG) SUBCUT PRN (23:48)
--- NOTE | 2021-05-09 | NUR ---
pt.assessed.v/s assessed values wnl.no c/o pain,nausea.blood glucose assessed value;171mg/dl.i have administered insulin;humlog 2-u per sliding scale. pt.requested snacks/juice provided.pt.capable to reposition self.bsc clean w/in access of the pt.call ligt/telephone w/in access of the pt.
[2021-05-09 00:55] VITALS: BP_SYST 116
--- NOTE | 2021-05-09 02:00 | NUR ---
pt.assessed.pt.presents quiescent affect calm,somnolent.per flacc pain mgx pt.absent facial grimaces/body posturing. picc line intatc iv lock.pt.capable to reposition self.bsc/walker w/in access of the pt.call light/telephone w/in access of the pt.
--- NOTE | 2021-05-09 04:00 | NUR ---
pt.assessed.pt.presents quiescent affect calm somnolent.per flacc pain mgx pt.absent facial grimaces/body posturing.bsc clean w/in access of the pt.pt.capable to reposition self.call light/telephone w/in access of the pt.
[2021-05-09] MEDS: INSULIN Lispro 100 UNITS/ML VIAL (humaLOG) SUBCUT SCH ×3 (06:27→17:20)
[2021-05-09] MEDS: INSULIN LISPRO SLIDING SCALE 100 UNITS/ML VIAL (humaLOG) SUBCUT PRN (06:29)
[2021-05-09] MEDS: NAPH,MB-DB/K PH,MBDB 250 MG TAB PO SCH (08:49)
[2021-05-09] MEDS: POTASSIUM CHLORIDE 20 MEQ TAB.PRT.SR PO SCH ×2 (08:49→21:46)
[2021-05-09] MEDS: CHOLECALCIFEROL (VITAMIN D3) 5,000 UNIT TABLET PO SCH (08:49)
[2021-05-09] MEDS: INSULIN GLARGINE 100 UNITS/ML 10 ML VIAL SUBCUT SCH ×2 (08:55→21:52)
[2021-05-09] MEDS: BALSAM PERU/CASTOR OIL 60 GM OINT...G. TP SCH (09:05)
[2021-05-09] MEDS: ceFAZolin SODIUM 1 GM in D5W 50 ML IV SCH ×2 (09:05→21:46)
[2021-05-09 12:05] VITALS: BP_SYST 106
[2021-05-09 12:44] VITALS: BP_SYST 129
[2021-05-09 16:18] VITALS: BP_SYST 126
[2021-05-09 20:00] VITALS: BP_SYST 125
--- NOTE | 2021-05-09 21:48 | NUR ---
meds Scheduled meds given; IV antibiotic administered, reviewed side effects and she verbalized understanding
[2021-05-09] MEDS: ENOXAPARIN SODIUM 30 MG/0.3 ML SYRINGE SUBCUT SCH (21:52)
--- NOTE | 2021-05-09 23:54 | NUR ---
Accucheck result of 207mg/dL per instructions; no coverage given at bedtime.
[2021-05-10] VITALS: BP_SYST 136
--- NOTE | 2021-05-10 03:39 | NUR ---
BSC Patient was assisted to BSC, she had clear yellow void. Returned to bed, no distress, denies pain. Call light w/in reach and safety precautions in place.
[2021-05-10] MEDS: INSULIN Lispro 100 UNITS/ML VIAL (humaLOG) SUBCUT SCH ×3 (07:01→17:26)
--- NOTE | 2021-05-10 07:10 | NUR ---
closing note Patient is awake, no distress. Accucheck done-169mg/dL and administered Humalog as ordered. Sacral dressing change done, tolerated, document updated on MST. Presently flushed PIIC line and now both lines are patent and flushing well. Safety precautions in place and call light w/in reach.
[2021-05-10 08:00] VITALS: BP_SYST 129
--- NOTE | 2021-05-10 08:00 | NUR ---
Initial notes In bed, denies any pain or discomfort. no distress noted. enc to call for help as needed.
[2021-05-10] MEDS: CHOLECALCIFEROL (VITAMIN D3) 5,000 UNIT TABLET PO SCH (09:26)
[2021-05-10] MEDS: ceFAZolin SODIUM 1 GM in D5W 50 ML IV SCH ×2 (09:26→20:56)
[2021-05-10] MEDS: NAPH,MB-DB/K PH,MBDB 250 MG TAB PO SCH (09:26)
[2021-05-10] MEDS: BALSAM PERU/CASTOR OIL 60 GM OINT...G. TP SCH (09:27)
[2021-05-10] MEDS: POTASSIUM CHLORIDE 20 MEQ TAB.PRT.SR PO SCH ×2 (09:29→20:56)
[2021-05-10] MEDS: INSULIN GLARGINE 100 UNITS/ML 10 ML VIAL SUBCUT SCH ×2 (09:29→20:59)
--- NOTE | 2021-05-10 11:00 | NUR ---
Notes- Assisted to bedside commode and had bowel movement.
[2021-05-10] MEDS: INSULIN LISPRO SLIDING SCALE 100 UNITS/ML VIAL (humaLOG) SUBCUT PRN (11:56)
[2021-05-10 12:54] VITALS: BP_SYST 131
--- NOTE | 2021-05-10 16:00 | NUR ---
Notes patient on the phone, denies any pain. Enc to call for help as needed,
[2021-05-10 16:29] VITALS: BP_SYST 130
--- NOTE | 2021-05-10 17:00 | NUR ---
notes- Picc line dressing done, aseptic technique observed
[2021-05-10 19:00] VITALS: BP_SYST 125
[2021-05-10 20:00] VITALS: BP_SYST 125
[2021-05-10] MEDS: ENOXAPARIN SODIUM 30 MG/0.3 ML SYRINGE SUBCUT SCH (21:00)
[2021-05-11] MEDS: INSULIN LISPRO SLIDING SCALE 100 UNITS/ML VIAL (humaLOG) SUBCUT PRN ×2 (00:21→17:26)
[2021-05-11 01:37] VITALS: BP_SYST 128
[2021-05-11] MEDS: INSULIN Lispro 100 UNITS/ML VIAL (humaLOG) SUBCUT SCH ×3 (06:25→17:23)
--- NOTE | 2021-05-11 06:30 | NUR ---
pt.assessed.presents quiescent affect.no c/o pain,nausea.blood glucose assessed value;137mg/dl.i administered humalog;0700a dose 12-u.picc line intact iv lock.i have attended to the wound care/dsg changes.pt.capable to reposition self.call light/telephone bsc w/in access of the pt.
[2021-05-11 07:24] LABS: CALCIUM 8.8 mg/dL (8.4-11.0); CREATININE 0.63 mg/dL (0.55-1.30); POTASSIUM 4.2 mmol/L (3.5-5.1)
[2021-05-11] MEDS: POTASSIUM CHLORIDE 20 MEQ TAB.PRT.SR PO SCH ×2 (08:03→21:59)
[2021-05-11] MEDS: NAPH,MB-DB/K PH,MBDB 250 MG TAB PO SCH (08:04)
[2021-05-11] MEDS: CHOLECALCIFEROL (VITAMIN D3) 5,000 UNIT TABLET PO SCH (08:04)
[2021-05-11] MEDS: ceFAZolin SODIUM 1 GM in D5W 50 ML IV SCH ×2 (08:04→22:04)
[2021-05-11] MEDS: BALSAM PERU/CASTOR OIL 60 GM OINT...G. TP SCH (08:11)
[2021-05-11] MEDS: INSULIN GLARGINE 100 UNITS/ML 10 ML VIAL SUBCUT SCH ×2 (08:13→22:02)
[2021-05-11 08:14] VITALS: BP_SYST 106
[2021-05-11 08:28] LABS: BASOPHILS # (AUTO) 0.1 K/uL (0.0-0.2); BASOPHILS % (AUTO) 1.9 % (0.0-2.0); EOSINOPHILS # (AUTO) 0.1 K/uL (0.0-0.4); EOSINOPHILS % (AUTO) 1.4 % (0.0-4.0); HEMATOCRIT 25.1 % (36-48); HEMOGLOBIN 8.3 g/dL (12.0-16.0); LYMPHOCYTES # (AUTO) 1.4 K/uL (1.0-5.5); LYMPHOCYTES % (AUTO) 19.9 % (20.5-51.5); MEAN CORPUSCULAR HEMOGLOBIN 27 pg (27-31); MEAN CORPUSCULAR HGB CONC 33 % (32-36); MEAN CORPUSCULAR VOLUME 83 fL (79.0-98.0); MONOCYTES # (AUTO) 0.6 K/uL (0.0-1.0); MONOCYTES % (AUTO) 9.5 % (1.7-9.3); NEUTROPHILS # (AUTO) 4.6 K/uL (1.8-7.7); NEUTROPHILS % (AUTO) 67.3 % (40.0-70.0); PLATELET COUNT (AUTO) 737 K/uL (130-430); RED BLOOD CELL COUNT(AUTO) 3.04 MIL/uL (4.2-6.2); RED CELL DISTRIBUTION WIDTH 14.9 % (9.0-15.0); WHITE BLOOD COUNT (AUTO) 6.8 K/uL (4.8-10.8)
--- NOTE | 2021-05-11 08:38 | NUR ---
PHYSICAL THERAPY CO-SIGN The Physical Therapy Progress Notes documented by Digital Imaging Specialist have been reviewed. Reviewed/Co-Signed by: Romeo Ramirez Documentation Done by: SOBIA LITTLE PTA Addendum: 05/11/21 at 0839 by Romeo Ramirez PT Amended: Links added.
--- NOTE | 2021-05-11 08:39 | NUR ---
PHYSICAL THERAPY CO-SIGN The Physical Therapy Progress Notes documented by Liquefaction And Regasification Helper have been reviewed. Reviewed/Co-Signed by: Romeo Ramirez Documentation Done by: SOBIA LITTLE PTA Addendum: 05/11/21 at 0839 by Romeo Ramirez PT Amended: Links added.
[2021-05-11 11:32] VITALS: BP_SYST 122
--- NOTE | 2021-05-11 13:03 | NUR ---
WOUND RE-EVALUATION: Patient received in a Plains Bed with a P500 low air-loss mattress, awake, alert, and oriented. Patient is able to turn in bed independently, and now uses bedside commode, and ambulates with physical therapy with a front wheel walker. Gee Score is a 16. Past Medical History: Diabetes Mellitus (noncompliant, not taking any medication), Left Ankle Fracture (had an Open Reduction Internal Fixation surgery at [facility] a few weeks ago). Recent Labs: WBC 6.8, RBC 3.04, hemoglobin 8.3, hematocrit 25.1, platelets 737, albumin 1.4, BUN 15, creatinine 0.63, GFR 129, POC glucose 130, glucose 129. Microbiology: Blood culture results x2 negative. Intrinsic factors that delay wound healing: Diabetes Mellitus (noncompliant), Diabetic Ketoacidosis (on admission). Extrinsic factors that delay wound healing: Decreased mobility. Wound Assessment: 1. Sacral area: Unstageable pressure ulcer, reclassified as a Stage 3 post chemical/autolytic debridement. Wound bed has 60% yellow slough, 40% pink tissue. No odor, no drainage. Periwound intact, white. Wound measures 3.8 cm x 2.0 cm x 0.2 cm. Recommend continue: Cleanse wound with normal saline. Apply moisture barrier cream to periwound. Apply Venelex ointment to wound bed. Cover site with Sacral foam dressing. Perform wound care daily, and as needed for dressing soiling or dislodgment. 2. Left Distal Medial Lower Extremity, Superior to Malleolus: Abscess, present on admission. Wound bed has 100% black scab. No odor, no drainage. Periwound intact. Surrounding tissue has normal feel and is without fluctuance. Wound area measures 0.4 cm x 0.3 cm. 3. Left Distal Lateral Lower Extremity, Superior to Malleolus: Prior healed incision site that reopened, present on admission. Wound bed has 80% red tissue, 20% black scab. No odor, scant red drainage. Wound measures 0.7 cm x 1.2 cm. 4. Left Distal Lateral Lower Extremity, Inferior to Site 3: Prior healed incision site that reopened. Wound bed has 100% red tissue. No odor, scant red drainage. Wound measures 1.2 cm x 0.7 cm. Recommend: Cleanse wounds with normal saline. Apply SurePrep to dick-wounds. Apply Venelex ointment to wound beds. Cover with non-adhesive foam dressings, wrap with Nicole wrap and secure with tape. Perform wound care daily, and as needed for dressing soiling or dislodgement. Also recommend: Encourage and assist patient as needed with repositioning side to side only every 2 hours with pillow support and off-load pressure areas with pillows for pressure re-distribution. Offload, elevate and float bilateral heels with pillows. Perform skin care and monitor skin integrity Q shift. Use moisture barrier cream on buttocks and other moisture susceptible areas QID and as needed for soiling. Maintain patient on a P500 low air-loss mattress.
[2021-05-11 15:38] VITALS: BP_SYST 132
--- NOTE | 2021-05-11 18:38 | NUR ---
PT HAS BEEN STABLE, NO FEVER, NO SOB. NO PAIN. BLOOD SUGAR CHECKED AND SLIDING SCALE AND SCHEDULE COVERAGE GIVEN. WOUND CARE NURSE SAW PT. PT VOIDING AND HAD BM. WILL ENDORSE TO NIGHT NURSE.
--- NOTE | 2021-05-11 20:15 | NUR ---
OOB ASSISTED PATIENT OUT OF BED FOR BED SIDE COMMODE USE. PERINEAL CARE DONE. PATIENT GOWN AND ALL LINENS CHANGED.
--- NOTE | 2021-05-11 21:59 | NUR ---
MED PASS PATIENT DUE MEDICATIONS GIVEN. VITAL SIGNS STABLE.
[2021-05-11] MEDS: ENOXAPARIN SODIUM 30 MG/0.3 ML SYRINGE SUBCUT SCH (22:03)
--- NOTE | 2021-05-11 22:04 | NUR ---
ATB PATIENT DUE ANTIBIOTIC INFUSING. MARYAN PICC LINE DRESSING DRY AND INTACT.
[2021-05-11 22:14] VITALS: BP_SYST 124
[2021-05-12 00:14] VITALS: BP_SYST 121
--- NOTE | 2021-05-12 00:30 | NUR ---
ROUNDS PATIENT RESTING IN BED. NO DISTRESS NOTED. VITAL SIGNS STABLE.
--- NOTE | 2021-05-12 03:06 | NUR ---
ROUNDS PATIENT IN BED. CALL LIGHT WITH IN REACH.
[2021-05-12] MEDS: INSULIN Lispro 100 UNITS/ML VIAL (humaLOG) SUBCUT SCH ×3 (05:57→16:46)
--- NOTE | 2021-05-12 06:46 | NUR ---
CLOSING NOTES AM BLOOD SUGAR 78. APPLE JUICE GIVEN X2. PATIENT NEEDS ATTENDED. CALL LIGHT WITH IN REACH.
[2021-05-12 07:59] VITALS: BP_SYST 134
[2021-05-12] MEDS: INSULIN GLARGINE 100 UNITS/ML 10 ML VIAL SUBCUT SCH ×2 (08:19→19:58)
[2021-05-12] MEDS: POTASSIUM CHLORIDE 20 MEQ TAB.PRT.SR PO SCH ×2 (08:23→19:45)
[2021-05-12] MEDS: CHOLECALCIFEROL (VITAMIN D3) 5,000 UNIT TABLET PO SCH (08:23)
[2021-05-12] MEDS: ceFAZolin SODIUM 1 GM in D5W 50 ML IV SCH ×2 (08:23→19:47)
[2021-05-12] MEDS: NAPH,MB-DB/K PH,MBDB 250 MG TAB PO SCH (08:23)
[2021-05-12] MEDS: BALSAM PERU/CASTOR OIL 60 GM OINT...G. TP SCH (08:34)
[2021-05-12] MEDS: INSULIN LISPRO SLIDING SCALE 100 UNITS/ML VIAL (humaLOG) SUBCUT PRN ×2 (11:56→16:48)
[2021-05-12 12:00] VITALS: BP_SYST 152
--- NOTE | 2021-05-12 14:43 | NUR ---
Spoke w/ patient-her daughter,Nell, is able to assist with wound care of her sacrum and ankle. Her daughter will be here at 3 PM to learn wound care. Patient will be sent home with wound care supplies. She was given information for [facility] to follow up for general medical needs and wound care. She was given 2 RX discount cards for PO antibiotic rx to be filled. She stated she can pay for her oral medications. She was instructed to follow up at [facility] for best prices for medications. She stated understanding of all instructions given. RN to teach the daughter wound care when she arrives at 3 PM. Addendum: 05/15/21 at 1540 by Regino Carrington RN donnao code [id number]
--- NOTE | 2021-05-12 15:30 | NUR ---
Note Pt's daughter at bedside since 1500. PT at bedside ambulating with pt in hallway at this time, with walker and gait belt - PT. Tolerating ambulation well. Dr Guerrero Sayed (House Painting Instructor) assessed pt at bedside and spoke to pt's daughter about Insulin and other glucose medications pt will be taking on discharge home. Questions/concerns were answered by .
[2021-05-12 16:00] VITALS: BP_SYST 143
--- NOTE | 2021-05-12 16:54 | NUR ---
Note Pt was educated and instructed to draw up Humalog Insulin SQ, and give herself Insulin - pt was able to demonstrate giving herself Insulin SQ. Pt has cataracts - vision is impaired at this time - had some difficulty.
--- NOTE | 2021-05-12 18:05 | NUR ---
NOTE Dr Lacy on the floor to assess pt and write discharge orders and prescription. Pt has been getting in and OOB. Pt was checked on q1' and PRN for needs and care all shift. Pt's bed in low position and bed alarm on all shift. Pt got in and OOB with minimal assist. Dr Lacy wrote prescription for Keflex. Pt sitting up in bed eating her dinner.
[2021-05-12 18:57] VITALS: BP_SYST 149
[2021-05-12 19:25] VITALS: BP_SYST 118
--- NOTE | 2021-05-12 19:28 | NUR ---
Paged Dr. Lacy
--- NOTE | 2021-05-12 19:33 | NUR ---
TEMP SPOKE WITH DR. JARRETT MADE AWARE PATIENT TEMPERATURE 100.[address] BENOIT DECIDE IF PATIENT OKAY TO DISCHARGE HOME TONIGHT.
--- NOTE | 2021-05-12 19:35 | NUR ---
Paged Dr. Hunt s/w Blas
--- NOTE | 2021-05-12 19:44 | NUR ---
MD DR. BENOIT MADE AWARE OF PATIENT [id number] PER MD SIERRA TO DISCHARGE PATIENT TONIGHT.
[2021-05-12] MEDS: ENOXAPARIN SODIUM 30 MG/0.3 ML SYRINGE SUBCUT SCH (19:46)
--- NOTE | 2021-05-12 19:58 | NUR ---
MED PASS PATIENT DUE MEDICATIONS GIVEN. VITAL SIGNS STABLE. PATIENT AND DAUGHTER INSTRUCTED ON HOW TO ADMINISTER INSULIN INJECTIONS. PATIENT ABLE TO SELF ADMINISTERED SCHEDULED LANTUS INSULIN.
--- NOTE | 2021-05-12 20:25 | NUR ---
WOUND CARE PATIENT DAUGHTER AT BEDSIDE. INSTRUCTED ON HOW TO CHANGE DRESSINGS ON PATIENT LEFT ANKLE AND SACRAL WOUNDS. WOUND CARE DONE WITH DAUGHTER WATCHING AT BEDSIDE.
--- NOTE | 2021-05-12 20:45 | NUR ---
PICC LINE PATIENT PICC LINE REMOVED. COMPLETE CATHETER OUT. PRESSURE DRESSING APPLIED.
--- NOTE | 2021-05-12 21:00 | NUR ---
DISCHARGE PATIENT DISCHARGED TO HOME IN STABLE CONDITION ACCOMPANIED BY DAUGHTER. PRESCRIPTION GIVEN AND DISCUSSED WITH DAUGHTER AND PATIENT. PROVIDED WITH WOUND CARE SUPPLIES GOOD FOR TWO WEEKS. LATEST TEMPERATURE 99.4
--- NOTE | 2021-05-13 10:39 | NUR ---
PHYSICAL THERAPY CO-SIGN The Physical Therapy Progress Notes documented by Division Order Analyst have been reviewed. Reviewed/Co-Signed by: Romeo Ramirez Documentation Done by: SOBIA LITTLE PTA Addendum: 05/13/21 at 1039 by Romeo Ramirez PT Amended: Links added.
== END 2021-05-12 21:00 | disposition home or self-care (01) | DRG 871 ==
LOC: SED 09:34 → SIC 12:37 → STU 04-12 15:59 → SMU 04-18 14:20
PROVIDERS: ADMIT Family Medicine; ATTEND Family Medicine
PROC: 30233N1 Transfusion of Nonautologous Red Blood Cells into Peripheral Vein, Percutaneous Approach (ICD-10-PCS; principal; 2021-04-27)
DX: A41.01 Sepsis due to Methicillin susceptible Staphylococcus aureus (principal); E11.10 Type 2 diabetes mellitus with ketoacidosis without coma; N17.0 Acute kidney failure with tubular necrosis; E44.0 Moderate protein-calorie malnutrition; E87.1 Hypo-osmolality and hyponatremia; T84.623A Infection and inflammatory reaction due to internal fixation device of left tibia, initial encounter; Z68.1 Body mass index [BMI] 19.9 or less, adult; L02.416 Cutaneous abscess of left lower limb; L03.116 Cellulitis of left lower limb; E87.6 Hypokalemia; L89.150 Pressure ulcer of sacral region, unstageable; Y83.8 Other surgical procedures as the cause of abnormal reaction of the patient, or of later complication, without mention of misadventure at the time of the procedure; E86.0 Dehydration; E83.39 Other disorders of phosphorus metabolism; Z20.822 Contact with and (suspected) exposure to COVID-19; E55.9 Vitamin D deficiency, unspecified; D64.9 Anemia, unspecified; Z79.899 Other long term (current) drug therapy; Y92.89 Other specified places as the place of occurrence of the external cause; Z91.14 Patient's other noncompliance with medication regimen; Z79.84 Long term (current) use of oral hypoglycemic drugs; Z79.4 Long term (current) use of insulin; Z91.19 Patient's noncompliance with other medical treatment and regimen
CPT/HCPCS: 36415; 36600; 71045; 80048; 80053; 82009; 82306; 82803-TC; 82962; 83036; 83605; 83735; 84100; 84132; 85007; 85025; 85027; 85610-TC; 85651-TC; 85730-TC; 86140; 86886; 86900; 86901; 86920; 87040-TC; 87070-TC; 87081; 87186-TC; 93005; 96365; 96366; 96368; 96375; 97110-GP; 97116-GP; 97530-GP; 99285; G0378; J0690; J0712; J1650; J1815; J2405; J2543; J3370; J3480; J3490; J7050; J7060; P9021

== ENCOUNTER 2022-01-21 23:17 | Emergency (ER) | payer MEDICAID ==
[~2022-01-21] VITALS: Ht 162.6 cm; Wt 54.4 kg
[2022-01-21 23:25] VITALS: BP_SYST 179
[2022-01-22] MEDS ORDERED: traMADol HCL HCL 50 MG TABLET (ULTRAM) PO ONE (03:15)
[2022-01-22] MEDS ORDERED: LORazepam 1 MG TABLET PO ONE (04:30)
[2022-01-22] MEDS ORDERED: LORazepam 1 MG TABLET ONE (04:31)
[2022-01-22] MEDS ORDERED: cloNIDine HCL 0.1 MG TABLET PO ONE (05:30)
[2022-01-22] MEDS ORDERED: ATEN-41 PO (06:45)
[2022-01-22] MEDS ORDERED: IBUP-1969 PO (06:45)
[2022-01-22 07:00] VITALS: BP_SYST 158
== END 2022-01-22 07:37 | disposition home or self-care (01) ==
LOC: SED 23:17
DX: M54.50 Low back pain, unspecified (principal); G89.29 Other chronic pain; M54.16 Radiculopathy, lumbar region; E11.9 Type 2 diabetes mellitus without complications; I10 Essential (primary) hypertension; Z79.899 Other long term (current) drug therapy
CPT/HCPCS: 72131; 76376; 99285

== ENCOUNTER 2023-02-16 20:40 | Emergency (ER) | payer MEDICAID ==
[~2023-02-16] VITALS: Ht 162.6 cm; Wt 45.4 kg
[~2023-02-16 20:40] MED LIST changes: +ATEN-41 PO; -GLU500 PO; -GLYPIZIDE PO
[2023-02-16 20:42] VITALS: BP_SYST 121; PULSE 72; RESP 20; TEMP 97.2; O2SAT 98
[2023-02-16] MEDS ORDERED: NACL 0.9% 1,000 ML IV ONE ×2 (21:00→22:00)
[2023-02-16 21:37] LABS: BASOPHILS % (AUTO) 0.3 % (0.0-2.0); HEMATOCRIT 36.2 % (36-48); HEMOGLOBIN 11.7 g/dL (12.0-16.0); LYMPHOCYTES # (AUTO) 0.5 K/uL (1.0-5.5); LYMPHOCYTES % (AUTO) 3.5 % (20.5-51.5); MEAN CORPUSCULAR HEMOGLOBIN 28 pg (27-31); MEAN CORPUSCULAR HGB CONC 32 % (32-36); MEAN CORPUSCULAR VOLUME 87 fL (79.0-98.0); MONOCYTES # (AUTO) 0.9 K/uL (0.0-1.0); MONOCYTES % (AUTO) 6.6 % (1.7-9.3); NEUTROPHILS # (AUTO) 11.6 K/uL (1.8-7.7); NEUTROPHILS % (AUTO) 89.6 % (40.0-70.0); PLATELET COUNT (AUTO) 289 K/uL (130-430); RED BLOOD CELL COUNT(AUTO) 4.18 MIL/uL (4.2-6.2); RED CELL DISTRIBUTION WIDTH 13.3 % (9.0-15.0); WHITE BLOOD COUNT (AUTO) 12.9 K/uL (4.8-10.8)
[2023-02-16 22:16] LABS: ALBUMIN 1.9 g/dL (3.4-4.8); ANION GAP 5 (5-15); ASPARTATE AMINOTRANSFERASE 11 U/L (10-37); CALCIUM 8.6 mg/dL (8.4-11.0); CHLORIDE 91 mmol/L (98-107); CREATININE 1.34 mg/dL (0.55-1.30); GFR AFRICAN AMERICAN 53 mL/min (>90); LIPASE 29 U/L (73-393); TOTAL BILIRUBIN 0.6 mg/dL (0.0-1.0); UREA NITROGEN, BLOOD 7 mg/dL (8-21)
[2023-02-16 22:21] LABS: GLUCOSE 781 mg/dL (74-106)
[2023-02-16 22:22] LABS: ALANINE AMINOTRANSFERASE 4 U/L (12-78)
[2023-02-16 22:29] LABS: ACETONE, SERUM NEGATIVE (NEGATIVE)
[2023-02-16] MEDS ORDERED: LR 1,000 ML IV ONE ×2 (22:30)
[2023-02-16] MEDS ORDERED: KCL 40 mEq in 100 mL (PREMIX) 100 ML IV ONE (22:30)
[2023-02-16] MEDS ORDERED: POTASSIUM CHLORIDE 20 MEQ TAB.PRT.SR PO ONE (22:30)
[2023-02-16] MEDS ORDERED: KCL 20 mEq in 100 mL (PREMIX) 200 ML IV ONE (22:37)
[2023-02-16 23:22] LABS: BILIRUBIN,URINE NEGATIVE (NEGATIVE); BLOOD, URINE 2+ (NEGATIVE); COLOR,URINE YELLOW (YELLOW); GLUCOSE,URINE 3+ (NEGATIVE); KETONES,URINE TRACE (NEGATIVE); LEUKOCYTE ESTERASE ,URINE NEGATIVE (NEGATIVE); NITRITE, URINE NEGATIVE (NEGATIVE); PROTEIN URINE 2+ (NEGATIVE); UROBILINOGEN,URINE 0.2 (0.2-1.0)
[2023-02-16 23:29] LABS: CLARITY/URINE HAZY (CLEAR)
[2023-02-16 23:38] LABS: BARBITURATE, URINE NEGATIVE (NEG <=200); BENZODIAZEPINE, URINE NEGATIVE (NEG <=150); COCAINE, URINE NEGATIVE (NEG <=150); METHAMPHETAMINES SCREEN,URINE NEGATIVE (NEG <=500); URINE AMPHETAMINE NEGATIVE (NEG <=500); URINE METHADONE NEGATIVE (NEG <=200)
[2023-02-16 23:39] LABS: CANNABINOID, URINE NEGATIVE (NEG <=50); OPIATE, URINE NEGATIVE (NEG <=100); PHENCYCLIDINE SCREEN,URINE NEGATIVE (NEG <=25); UR TRICYCLIC ANTIDEPRESSANTS NEGATIVE (NEG <=300); URINE OXYCODONE SCREEN NEGATIVE (NEG <=100); URINE PROPOXYPHENE SCREEN NEGATIVE (NEG <=300)
[2023-02-16 23:45] LABS: BACTERIA,URINE MANY /HPF (None Seen); MUCUS,URINE None Seen /LPF (None Seen); YEAST,URINE Moderate /HPF (None Seen)
[2023-02-17 00:59] LABS: CREATININE 0.9 mg/dL (0.55-1.30)
[2023-02-17 01:31] LABS: CALCIUM 8.2 mg/dL (8.4-11.0); CREATININE 0.85 mg/dL (0.55-1.30)
[2023-02-17] MEDS ORDERED: LR 1,000 ML IV ONE ×2 (01:45→04:45)
[2023-02-17] MEDS ORDERED: POTASSIUM CHLORIDE 20 MEQ TAB.PRT.SR PO ONE (01:45)
[2023-02-17] MEDS ORDERED: INSULIN REGULAR, HUMAN 10 UNITS/0.1 ML, 3 ML VIAL IVP ONE ×2 (01:45→04:15)
[2023-02-17 13:38] VITALS: BP_SYST 139; PULSE 93; RESP 12; TEMP 97.8; O2SAT 98
== END 2023-02-17 13:42 | disposition home or self-care (01) ==
LOC: SED 20:40
DX: E11.65 Type 2 diabetes mellitus with hyperglycemia (principal); I10 Essential (primary) hypertension; R53.1 Weakness; Z79.899 Other long term (current) drug therapy
CPT/HCPCS: 99285; 96365; 96366; 96361 ×2; 80307; 80053; 81000; 82009; 83690; 85025; 87086; 84484; 93005; 36600; 82800; 96375; 96376; 80048; 82962; J3480; J7030 ×2; J1815

== ENCOUNTER 2023-09-15 17:50 | Inpatient (IN) | payer MEDICAID, OTHER ==
[~2023-09-15] VITALS: Ht 162.6 cm; Wt 46.0 kg
[2023-09-15 17:50] VITALS: BP_SYST 138; PULSE 99; RESP 20; TEMP 97.9; O2SAT 95
[2023-09-15 18:49] LABS: BASOPHILS % (AUTO) 0.1 % (0.0-2.0); EOSINOPHILS % (AUTO) 0.1 % (0.0-4.0); HEMATOCRIT 28.5 % (36-48); HEMOGLOBIN 9.6 g/dL (12.0-16.0); LYMPHOCYTES # (AUTO) 0.4 K/uL (1.0-5.5); LYMPHOCYTES % (AUTO) 2.7 % (20.5-51.5); MEAN CORPUSCULAR HEMOGLOBIN 27 pg (27-31); MEAN CORPUSCULAR HGB CONC 34 % (32-36); MEAN CORPUSCULAR VOLUME 82 fL (79.0-98.0); MONOCYTES # (AUTO) 1.1 K/uL (0.0-1.0); MONOCYTES % (AUTO) 7.5 % (1.7-9.3); NEUTROPHILS % (AUTO) 89.6 % (40.0-70.0); PLATELET COUNT (AUTO) 356 K/uL (130-430); RED BLOOD CELL COUNT(AUTO) 3.49 MIL/uL (4.2-6.2); RED CELL DISTRIBUTION WIDTH 14.3 % (9.0-15.0); WHITE BLOOD COUNT (AUTO) 14.6 K/uL (4.8-10.8)
[2023-09-15 18:52] LABS: INFLUENZA TYPE A Negative (NEGATIVE); INFLUENZA TYPE B NEGATIVE (NEGATIVE)
[2023-09-15 19:00] LABS: COVID19 ANTIGEN SOFIA FIA NEGATIVE (NEGATIVE)
[2023-09-15] MEDS ORDERED: LOSA-412 PO (19:05)
[2023-09-15] MEDS ORDERED: INSU100V SUBCUT (19:05)
[2023-09-15] MEDS ORDERED: AMLO2.5T2 PO (19:05)
[2023-09-15] MEDS ORDERED: INSU100V53 SQ (19:05)
[2023-09-15 19:11] LABS: ANION GAP 12 (5-15); CALCIUM 8.4 mg/dL (8.4-11.0); CARBON DIOXIDE 23 mmol/L (23-29); CHLORIDE 103 mmol/L (98-107); CREATININE 1.34 mg/dL (0.55-1.30); GFR AFRICAN AMERICAN 53 mL/min (>90); GLUCOSE 87 mg/dL (74-106); POTASSIUM 3.2 mmol/L (3.5-5.1); SODIUM SERUM 138 mmol/L (136-145); UREA NITROGEN, BLOOD 23 mg/dL (8-21)
[2023-09-15 19:14] LABS: GFR NON AFRICAN-AMERICAN 44 mL/min (>90)
[2023-09-15 19:18] LABS: ALANINE AMINOTRANSFERASE 13 U/L (12-78); ALBUMIN 1.7 g/dL (3.4-4.8); ASPARTATE AMINOTRANSFERASE 12 U/L (10-37); BILIRUBIN,DIRECT 0.1 mg/dL (0.0-0.3); LIPASE 26 U/L (16-77); PHOSPHORUS 3.4 mg/dL (2.7-4.5); TOTAL BILIRUBIN 0.4 mg/dL (0.0-1.0); TOTAL PROTEIN, SERUM 6.3 g/dL (6.4-8.3)
[2023-09-15] MEDS ORDERED: cefTRIAXone 1 GM VIAL ONE (19:42)
[2023-09-15] MEDS ORDERED: HYDROcodone/ACETAMIN 10-325 MG TAB PO PRN (19:45)
[2023-09-15] MEDS ORDERED: ALBUTEROL SULFATE 0.083% 2.5 MG/3 ML VIAL.NEB INH PRN (19:45)
[2023-09-15] MEDS ORDERED: DEXTROSE 50% JECT 50 ML DISP.SYRIN IVP PRN (19:45)
[2023-09-15] MEDS ORDERED: LORazepam 2 MG/ML VIAL IVP PRN (19:45)
[2023-09-15] MEDS ORDERED: IPRATROPIUM BROM 0.5 MG/2.5 ML VIAL.NEB (ATROVENT) INH PRN (19:45)
[2023-09-15] MEDS ORDERED: guaiFENesin 200 MG/10 ML UDC PO PRN (20:00)
[2023-09-15] MEDS ORDERED: ZOLPIDEM TARTRATE 5 MG TABLET PO PRN (20:00)
[2023-09-15] MEDS: cefTRIAXone 1 GM in D5W 50 ML IV ONE (20:11)
[2023-09-15] MEDS: HYDROcodone/ACETAMIN 5-325 MG TAB (NORCO/ VICODIN) PO PRN (21:59)
[2023-09-15] MEDS: GABAPENTIN 300 MG CAPSULE PO SCH (22:00)
[2023-09-15] MEDS: INSULIN LISPRO SLIDING SCALE 100 UNITS/ML, 3 ML VIAL (humaLOG) SUBCUT PRN (22:07)
[2023-09-15] MEDS: AZITHROMYCIN 500 MG/VIAL (ZITHROMAX) IV ONE (22:08)
[2023-09-15] MEDS: POTASSIUM CHLORIDE 20 MEQ TABLET.ER PO ONE (22:11)
[2023-09-15] MEDS: AZITHROMYCIN 500 MG in NS 250 ML IV ONE (22:11)
[2023-09-15 22:12] VITALS: BP_SYST 152; PULSE 96; RESP 18; TEMP 97.8; O2SAT 98
[2023-09-15] MEDS: 0.45% NACL 1,000 ML IV SCH (23:30)
[2023-09-16] VITALS (8 sets, daily range): BP systolic 124–148; PULSE 84–92; RESP 14–18; TEMP 96–98.6; O2SAT 96–98
[2023-09-16 05:39] LABS: BASOPHILS % (AUTO) 0.2 % (0.0-2.0); EOSINOPHILS % (AUTO) 0.3 % (0.0-4.0); HEMATOCRIT 24.6 % (36-48); HEMOGLOBIN 8.2 g/dL (12.0-16.0); LYMPHOCYTES # (AUTO) 1.1 K/uL (1.0-5.5); LYMPHOCYTES % (AUTO) 9.7 % (20.5-51.5); MEAN CORPUSCULAR HEMOGLOBIN 27 pg (27-31); MEAN CORPUSCULAR HGB CONC 33 % (32-36); MEAN CORPUSCULAR VOLUME 82 fL (79.0-98.0); MONOCYTES % (AUTO) 8.9 % (1.7-9.3); NEUTROPHILS # (AUTO) 9.2 K/uL (1.8-7.7); NEUTROPHILS % (AUTO) 80.9 % (40.0-70.0); PLATELET COUNT (AUTO) 325 K/uL (130-430); RED CELL DISTRIBUTION WIDTH 14.2 % (9.0-15.0); WHITE BLOOD COUNT (AUTO) 11.4 K/uL (4.8-10.8)
[2023-09-16 05:51] LABS: CALCIUM 7.8 mg/dL (8.4-11.0); CREATININE 1.27 mg/dL (0.55-1.30); POTASSIUM 3.6 mmol/L (3.5-5.1)
[2023-09-16 06:01] LABS: HEMOGLOBIN A1C 8.03 % (<5.7)
[2023-09-16] MEDS: ONDANSETRON HCL 4 MG/2 ML VIAL IVP PRN (08:40)
[2023-09-16] MEDS ORDERED: amLODIPine BESYLATE 10 MG TABLET PO SCH (09:00)
[2023-09-16] MEDS: amLODIPine BESYLATE 5 MG TABLET PO SCH (09:37)
[2023-09-16] MEDS ORDERED: AMLO10TA88 PO (10:06)
[2023-09-16] MEDS ORDERED: NEU300 PO (10:06)
[2023-09-16] MEDS: ENOXAPARIN SODIUM 40 MG/0.4 ML SYRINGE SUBCUT ONE (10:52)
[2023-09-16] MEDS: AZITHROMYCIN 500 MG in NS 250 ML IV SCH (20:46)
[2023-09-16] MEDS: cefTRIAXone 1 GM in D5W 50 ML IV SCH (22:16)
[2023-09-17 00:34] VITALS: BP_SYST 135; PULSE 94; RESP 15; TEMP 97.9; O2SAT 93
[2023-09-17 05:11] LABS: BASOPHILS % (AUTO) 0.3 % (0.0-2.0); EOSINOPHILS # (AUTO) 0.1 K/uL (0.0-0.4); EOSINOPHILS % (AUTO) 1.1 % (0.0-4.0); HEMATOCRIT 24.9 % (36-48); HEMOGLOBIN 8.5 g/dL (12.0-16.0); MEAN CORPUSCULAR HEMOGLOBIN 28 pg (27-31); MEAN CORPUSCULAR HGB CONC 34 % (32-36); MEAN CORPUSCULAR VOLUME 81 fL (79.0-98.0); MONOCYTES # (AUTO) 0.8 K/uL (0.0-1.0); MONOCYTES % (AUTO) 9.7 % (1.7-9.3); NEUTROPHILS # (AUTO) 6.1 K/uL (1.8-7.7); NEUTROPHILS % (AUTO) 75.9 % (40.0-70.0); PLATELET COUNT (AUTO) 399 K/uL (130-430); RED BLOOD CELL COUNT(AUTO) 3.08 MIL/uL (4.2-6.2); RED CELL DISTRIBUTION WIDTH 14.5 % (9.0-15.0); WHITE BLOOD COUNT (AUTO) 8.1 K/uL (4.8-10.8)
[2023-09-17 05:24] LABS: CALCIUM 8.1 mg/dL (8.4-11.0); POTASSIUM 3.4 mmol/L (3.5-5.1)
[2023-09-17 07:31] VITALS: BP_SYST 98; PULSE 98; RESP 17; TEMP 98.6; O2SAT 85
[2023-09-17 08:00] VITALS: O2SAT 98
[2023-09-17] MEDS ORDERED: ALBMDI INH (08:57)
[2023-09-17] MEDS ORDERED: LEVO-62 PO (08:57)
[2023-09-17] MEDS: amLODIPine BESYLATE 10 MG TABLET PO SCH (09:13)
[2023-09-17] MEDS: ENOXAPARIN SODIUM 40 MG/0.4 ML SYRINGE SUBCUT SCH (09:14)
[2023-09-17] MEDS: INSULIN GLARGINE 100 UNITS/ML, 10 ML VIAL SUBCUT SCH (09:15)
[2023-09-17] MEDS ORDERED: POTASSIUM CHLORIDE 20 MEQ TABLET.ER PO ONE (10:00)
[2023-09-17 10:44] VITALS: BP_SYST 98; PULSE 98; RESP 18; TEMP 98.6; O2SAT 98
== END 2023-09-17 11:08 | disposition home health service (06) | DRG 720 ==
LOC: SED 17:50 → STU 19:42
PROVIDERS: ADMIT Internal Medicine; ATTEND Internal Medicine
DX: A41.9 Sepsis, unspecified organism (principal); N17.0 Acute kidney failure with tubular necrosis; J69.0 Pneumonitis due to inhalation of food and vomit; E43 Unspecified severe protein-calorie malnutrition; J18.9 Pneumonia, unspecified organism; D63.8 Anemia in other chronic diseases classified elsewhere; E86.0 Dehydration; I95.1 Orthostatic hypotension; I10 Essential (primary) hypertension; Z20.822 Contact with and (suspected) exposure to COVID-19; E11.9 Type 2 diabetes mellitus without complications; Z79.4 Long term (current) use of insulin; Z79.899 Other long term (current) drug therapy; Z68.1 Body mass index [BMI] 19.9 or less, adult
CPT/HCPCS: 36415; 71045; 80048; 80076; 82948; 83037; 83605; 83690; 83735; 84100; 84484; 85025; 87040; 87081; 93005; 93306; 96365; 96367; 97116-GP; 97530-GP; 99285; G0378; J0456; J0696; J1650; J1815; J2405; J7050; J7060

== ENCOUNTER 2023-11-11 09:49 | Inpatient (IN) | payer OTHER ==
[~2023-11-11] VITALS: Ht 162.6 cm; Wt 53.1 kg
[~2023-11-11 09:49] MED LIST changes: +ALBMDI INH; +AMLO10TA88 PO; -ATEN-41 PO; +INSU100V SUBCUT; +INSU100V53 SQ; +LEVO-62 PO; +LOSA-412 PO; +NEU300 PO
[2023-11-11 09:59] VITALS: BP_SYST 127; PULSE 97; RESP 18; TEMP 97.6; O2SAT 97
[2023-11-11 10:30] LABS: BASOPHILS # (AUTO) 0.1 K/uL (0.0-0.2); BASOPHILS % (AUTO) 0.9 % (0.0-2.0); EOSINOPHILS # (AUTO) 0.1 K/uL (0.0-0.4); EOSINOPHILS % (AUTO) 0.9 % (0.0-4.0); HEMATOCRIT 35.6 % (36-48); HEMOGLOBIN 12.1 g/dL (12.0-16.0); LYMPHOCYTES # (AUTO) 1.8 K/uL (1.0-5.5); LYMPHOCYTES % (AUTO) 25.7 % (20.5-51.5); MEAN CORPUSCULAR HEMOGLOBIN 28 pg (27-31); MEAN CORPUSCULAR HGB CONC 34 % (32-36); MEAN CORPUSCULAR VOLUME 84 fL (79.0-98.0); MONOCYTES # (AUTO) 0.4 K/uL (0.0-1.0); MONOCYTES % (AUTO) 5.4 % (1.7-9.3); NEUTROPHILS # (AUTO) 4.7 K/uL (1.8-7.7); NEUTROPHILS % (AUTO) 67.1 % (40.0-70.0); PLATELET COUNT (AUTO) 331 K/uL (130-430); RED BLOOD CELL COUNT(AUTO) 4.25 MIL/uL (4.2-6.2); RED CELL DISTRIBUTION WIDTH 14.7 % (9.0-15.0)
[2023-11-11] MEDS: HYDROcodone/ACETAMIN 10-325 MG TAB PO ONE (10:43)
[2023-11-11] MEDS: ONDANSETRON 4 MG ODT TAB PO ONE (10:43)
[2023-11-11 10:56] LABS: INR 0.9 (0.8-1.2); PROTHROMBIN TIME 9.8 SECS (9.5-12.5)
[2023-11-11 10:57] LABS: ALANINE AMINOTRANSFERASE 15 U/L (12-78); ALBUMIN 2.5 g/dL (3.4-4.8); ANION GAP 9 (5-15); ASPARTATE AMINOTRANSFERASE 12 U/L (10-37); CALCIUM 8.9 mg/dL (8.4-11.0); CARBON DIOXIDE 26 mmol/L (23-29); CHLORIDE 102 mmol/L (98-107); GFR AFRICAN AMERICAN 50 mL/min (>90); GFR NON AFRICAN-AMERICAN 42 mL/min (>90); GLUCOSE 200 mg/dL (74-106); POTASSIUM 4.3 mmol/L (3.5-5.1); SODIUM SERUM 137 mmol/L (136-145); TOTAL BILIRUBIN 0.5 mg/dL (0.0-1.0); TOTAL PROTEIN, SERUM 6.7 g/dL (6.4-8.3); UREA NITROGEN, BLOOD 26 mg/dL (8-21)
[2023-11-11 11:08] LABS: ACETAMINOPHEN < 1 ug/mL (1-30); ALCOHOL, BLOOD < 3 mg/dL (<10); BILIRUBIN,DIRECT 0.1 mg/dL (0.0-0.3); CREATINE KINASE, TOTAL 45 U/L (26-192); SALICYLATE 1 mg/dL (3-30)
[2023-11-11 11:20] LABS: ACETONE, SERUM NEGATIVE (NEGATIVE)
[2023-11-11] MEDS: NACL 0.9% 1,000 ML IV ONE (11:20)
[2023-11-11] MEDS ORDERED: INSU100V44 (12:43)
[2023-11-11] MEDS ORDERED: NOR10 PO (12:43)
[2023-11-11] MEDS ORDERED: INSU100V9 SQ (12:43)
[2023-11-11] MEDS: ONDANSETRON HCL 4 MG/2 ML VIAL IVP ONE (12:54)
[2023-11-11] MEDS: MORPHINE 2 MG/ML INJ. SYRINGE IVP ONE (12:55)
[2023-11-11 14:00] VITALS: PULSE 97; O2SAT 97
[2023-11-11] MEDS ORDERED: ACETAMINOPHEN 325 MG TABLET PO PRN (14:00)
[2023-11-11] MEDS ORDERED: IBUPROFEN 600 MG TABLET PO PRN (14:00)
[2023-11-11] MEDS ORDERED: IPRATROPIUM BROM 0.5 MG/2.5 ML VIAL.NEB (ATROVENT) INH PRN (14:00)
[2023-11-11] MEDS ORDERED: ALBUTEROL SULFATE 0.083% 2.5 MG/3 ML VIAL.NEB INH PRN (14:00)
[2023-11-11] MEDS ORDERED: HYDROcodone/ACETAMIN 5-325 MG TAB (NORCO/ VICODIN) PO PRN (14:00)
[2023-11-11] MEDS: NORMAL SALINE 5 ML DISP.SYRIN IVF SCH (14:06)
[2023-11-11 14:57] LABS: BILIRUBIN,URINE 2+ (NEGATIVE); BLOOD, URINE 2+ (NEGATIVE); COLOR,URINE YELLOW (YELLOW); GLUCOSE,URINE 1+ (NEGATIVE); KETONES,URINE 1+ (NEGATIVE); LEUKOCYTE ESTERASE ,URINE NEGATIVE (NEGATIVE); NITRITE, URINE NEGATIVE (NEGATIVE); PROTEIN URINE 3+ (NEGATIVE); UROBILINOGEN,URINE 0.2 (0.2-1.0)
[2023-11-11 15:00] LABS: CLARITY/URINE SLIGHTLY CLOUDY (CLEAR)
[2023-11-11 15:12] LABS: BACTERIA,URINE MANY /HPF (None Seen); HYALINE CASTS, URINE 0-2 /LPF (None Seen)
[2023-11-11 15:15] LABS: BARBITURATE, URINE NEGATIVE (NEG <=200); BENZODIAZEPINE, URINE NEGATIVE (NEG <=150); CANNABINOID, URINE NEGATIVE (NEG <=50); COCAINE, URINE NEGATIVE (NEG <=150); METHAMPHETAMINES SCREEN,URINE NEGATIVE (NEG <=500); OPIATE, URINE POSITIVE (NEG <=100); PHENCYCLIDINE SCREEN,URINE NEGATIVE (NEG <=25); UR TRICYCLIC ANTIDEPRESSANTS NEGATIVE (NEG <=300); URINE AMPHETAMINE NEGATIVE (NEG <=500); URINE METHADONE NEGATIVE (NEG <=200); URINE OXYCODONE SCREEN NEGATIVE (NEG <=100)
[2023-11-11 15:55] VITALS: BP_SYST 147; PULSE 96; RESP 16; TEMP 98.8; O2SAT 98
[2023-11-11 16:07] VITALS: BP_SYST 129; PULSE 97; RESP 18; TEMP 97.6; O2SAT 98
[2023-11-11] MEDS: INSULIN REGULAR, HUMAN 100 UNITS/ML, 3 ML VIAL (humuLIN R) SUBCUT PRN (16:49)
[2023-11-11] MEDS ORDERED: CEFAZOLIN 1 GM IVPB PREMIX 50 ML IV SCH (18:37)
[2023-11-11 19:00] VITALS: BP_SYST 140; PULSE 94; RESP 16; TEMP 98.6; O2SAT 98
[2023-11-11 20:00] VITALS: BP_SYST 140; PULSE 94; RESP 16; TEMP 98.6; O2SAT 98
[2023-11-11] MEDS: CEFAZOLIN 1 GM IVPB PREMIX 50 ML IV ONE (21:58)
[2023-11-11] MEDS: GABAPENTIN 300 MG CAPSULE PO SCH (22:12)
[2023-11-11] MEDS: HYDROcodone/ACETAMIN 10-325 MG TAB PO PRN (22:19)
[2023-11-11] MEDS: CEFAZOLIN 1 GM IVPB PREMIX 50 ML IV SCH (22:23)
[2023-11-11] MEDS: INSULIN GLARGINE 100 UNITS/ML, 10 ML VIAL SQ SCH (22:24)
[2023-11-12] VITALS (7 sets, daily range): BP systolic 104–136; PULSE 80–92; RESP 16–17; TEMP 98–98.6; O2SAT 98–99
[2023-11-12 06:45] LABS: BASOPHILS % (AUTO) 0.7 % (0.0-2.0); EOSINOPHILS # (AUTO) 0.1 K/uL (0.0-0.4); HEMATOCRIT 24.6 % (36-48); HEMOGLOBIN 8.6 g/dL (12.0-16.0); LYMPHOCYTES # (AUTO) 1.7 K/uL (1.0-5.5); LYMPHOCYTES % (AUTO) 27.1 % (20.5-51.5); MEAN CORPUSCULAR HEMOGLOBIN 29 pg (27-31); MEAN CORPUSCULAR HGB CONC 35 % (32-36); MEAN CORPUSCULAR VOLUME 84 fL (79.0-98.0); MONOCYTES # (AUTO) 0.7 K/uL (0.0-1.0); MONOCYTES % (AUTO) 11.6 % (1.7-9.3); NEUTROPHILS # (AUTO) 3.7 K/uL (1.8-7.7); NEUTROPHILS % (AUTO) 59.6 % (40.0-70.0); PLATELET COUNT (AUTO) 237 K/uL (130-430); RED BLOOD CELL COUNT(AUTO) 2.94 MIL/uL (4.2-6.2); RED CELL DISTRIBUTION WIDTH 14.8 % (9.0-15.0); WHITE BLOOD COUNT (AUTO) 6.2 K/uL (4.8-10.8)
[2023-11-12 07:00] LABS: CALCIUM 8.6 mg/dL (8.4-11.0); CREATININE 1.7 mg/dL (0.55-1.30); PHOSPHORUS 3.7 mg/dL (2.7-4.5); POTASSIUM 4.6 mmol/L (3.5-5.1)
[2023-11-12] MEDS ORDERED: ACETAMINOPHEN 325 MG TABLET PO PRN (07:45)
[2023-11-12] MEDS: LOSARTAN POTASSIUM 25 MG TABLET PO SCH (08:48)
[2023-11-12] MEDS: amLODIPine BESYLATE 10 MG TABLET PO SCH (08:48)
[2023-11-12] MEDS: ONDANSETRON HCL 4 MG/2 ML VIAL IVP PRN (09:02)
[2023-11-12] MEDS: NACL 0.9% 1,000 ML IV SCH (10:13)
[2023-11-13] VITALS (7 sets, daily range): BP systolic 118–151; PULSE 80–101; RESP 16–18; TEMP 97.5–98.5; O2SAT 96–99
[2023-11-13 08:24] LABS: BASOPHILS % (AUTO) 0.6 % (0.0-2.0); EOSINOPHILS # (AUTO) 0.1 K/uL (0.0-0.4); EOSINOPHILS % (AUTO) 1.6 % (0.0-4.0); HEMATOCRIT 22.3 % (36-48); HEMOGLOBIN 7.7 g/dL (12.0-16.0); LYMPHOCYTES # (AUTO) 1.4 K/uL (1.0-5.5); LYMPHOCYTES % (AUTO) 25.5 % (20.5-51.5); MEAN CORPUSCULAR HEMOGLOBIN 29 pg (27-31); MEAN CORPUSCULAR HGB CONC 35 % (32-36); MEAN CORPUSCULAR VOLUME 83 fL (79.0-98.0); MONOCYTES # (AUTO) 0.7 K/uL (0.0-1.0); MONOCYTES % (AUTO) 12.4 % (1.7-9.3); NEUTROPHILS # (AUTO) 3.2 K/uL (1.8-7.7); NEUTROPHILS % (AUTO) 59.9 % (40.0-70.0); PLATELET COUNT (AUTO) 188 K/uL (130-430); RED BLOOD CELL COUNT(AUTO) 2.68 MIL/uL (4.2-6.2); RED CELL DISTRIBUTION WIDTH 14.5 % (9.0-15.0); WHITE BLOOD COUNT (AUTO) 5.3 K/uL (4.8-10.8)
[2023-11-13 08:31] LABS: ALBUMIN 1.8 g/dL (3.4-4.8); CALCIUM 7.7 mg/dL (8.4-11.0); CREATININE 1.27 mg/dL (0.55-1.30); PHOSPHORUS 3.1 mg/dL (2.7-4.5); POTASSIUM 4.1 mmol/L (3.5-5.1); TOTAL BILIRUBIN 0.2 mg/dL (0.0-1.0); TOTAL PROTEIN, SERUM 5.3 g/dL (6.4-8.3)
[2023-11-13] MEDS ORDERED: DEXAMETHASONE SOD PHOSPHATE 4 MG/ML VIAL ONE (08:41)
[2023-11-13] MEDS ORDERED: ONDANSETRON HCL 4 MG/2 ML VIAL IVP PRN (09:15)
[2023-11-13] MEDS ORDERED: fentaNYL CITRATE/PF 100 MCG/2 ML AMP IVP PRN ×2 (09:15)
[2023-11-13] MEDS: LR 1,000 ML IV ONE (09:15)
[2023-11-13] MEDS ORDERED: NALOXONE HCL 0.4 MG/ML AMP (NARCAN) IVP PRN (09:15)
[2023-11-13 09:16] LABS: ERYTHROCYTE SEDIMENTATION RATE 24 MM/HR (0-20)
[2023-11-13] MEDS: HYDROmorphone 1 MG/ML INJ. CARTRIDGE ONE (11:45)
[2023-11-13] MEDS: HYDROmorphone 1 MG/ML INJ. CARTRIDGE IVP PRN (11:46)
[2023-11-13] MEDS: LABETALOL HCL 20 MG/4 ML CARTRIDGE IVP ONE ×3 (12:10→13:05)
[2023-11-13 12:24] LABS: HEMATOCRIT 28.6 % (36-48); HEMOGLOBIN 9.8 g/dL (12.0-16.0)
[2023-11-13] MEDS: hydrALAZINE HCL 20 MG/ML VIAL ONE (13:04)
[2023-11-13] MEDS: hydrALAZINE HCL 20 MG/ML VIAL IVP ONE (14:28)
[2023-11-13] MEDS: CALCIUM GLUC 2 GM/100ML-NACL 100 ML IV ONE (16:14)
[2023-11-14] VITALS (8 sets, daily range): BP systolic 110–159; PULSE 55–94; RESP 16–18; TEMP 97.6–98.9; O2SAT 96–100
[2023-11-14 06:00] LABS: ERYTHROCYTE SEDIMENTATION RATE 16 MM/HR (0-20)
[2023-11-14 06:19] LABS: BASOPHILS % (AUTO) 0.6 % (0.0-2.0); EOSINOPHILS % (AUTO) 0.7 % (0.0-4.0); LYMPHOCYTES # (AUTO) 1.1 K/uL (1.0-5.5); LYMPHOCYTES % (AUTO) 23.9 % (20.5-51.5); MEAN CORPUSCULAR HEMOGLOBIN 29 pg (27-31); MEAN CORPUSCULAR HGB CONC 34 % (32-36); MEAN CORPUSCULAR VOLUME 85 fL (79.0-98.0); MONOCYTES # (AUTO) 0.5 K/uL (0.0-1.0); MONOCYTES % (AUTO) 11.2 % (1.7-9.3); NEUTROPHILS # (AUTO) 2.9 K/uL (1.8-7.7); NEUTROPHILS % (AUTO) 63.6 % (40.0-70.0); PLATELET COUNT (AUTO) 155 K/uL (130-430); RED BLOOD CELL COUNT(AUTO) 2.39 MIL/uL (4.2-6.2); WHITE BLOOD COUNT (AUTO) 4.5 K/uL (4.8-10.8)
[2023-11-14 06:23] LABS: ALBUMIN 1.5 g/dL (3.4-4.8); CALCIUM 7.4 mg/dL (8.4-11.0); CREATININE 0.84 mg/dL (0.55-1.30); PHOSPHORUS 3.4 mg/dL (2.7-4.5); POTASSIUM 3.9 mmol/L (3.5-5.1); TOTAL BILIRUBIN 0.4 mg/dL (0.0-1.0); TOTAL PROTEIN, SERUM 4.6 g/dL (6.4-8.3)
[2023-11-14 08:18] LABS: HEMATOCRIT 20.4 % (36-48)
[2023-11-14] MEDS: CALCIUM GLUC 2 GM/100ML-NACL 100 ML IV ONE (12:52)
[2023-11-15 01:08] VITALS: BP_SYST 151; PULSE 91; RESP 15; TEMP 97.8; O2SAT 98
[2023-11-15 04:39] LABS: ERYTHROCYTE SEDIMENTATION RATE 46 MM/HR (0-20)
[2023-11-15 04:45] LABS: BASOPHILS % (AUTO) 0.6 % (0.0-2.0); EOSINOPHILS # (AUTO) 0.1 K/uL (0.0-0.4); EOSINOPHILS % (AUTO) 1.6 % (0.0-4.0); HEMATOCRIT 31.2 % (36-48); HEMOGLOBIN 10.6 g/dL (12.0-16.0); LYMPHOCYTES % (AUTO) 17.5 % (20.5-51.5); MEAN CORPUSCULAR HEMOGLOBIN 28 pg (27-31); MEAN CORPUSCULAR HGB CONC 34 % (32-36); MEAN CORPUSCULAR VOLUME 82 fL (79.0-98.0); MONOCYTES # (AUTO) 0.5 K/uL (0.0-1.0); MONOCYTES % (AUTO) 9.3 % (1.7-9.3); NEUTROPHILS # (AUTO) 4.1 K/uL (1.8-7.7); PLATELET COUNT (AUTO) 213 K/uL (130-430); RED CELL DISTRIBUTION WIDTH 17.9 % (9.0-15.0); WHITE BLOOD COUNT (AUTO) 5.8 K/uL (4.8-10.8)
[2023-11-15 04:58] LABS: CREATININE 1.05 mg/dL (0.55-1.30); POTASSIUM 3.8 mmol/L (3.5-5.1)
[2023-11-15 08:00] VITALS: BP_SYST 160; PULSE 93; RESP 18; TEMP 98.3; O2SAT 99
[2023-11-15] MEDS: fentaNYL CITRATE/PF 100 MCG/2 ML AMP ONE (08:37)
[2023-11-15] MEDS: MIDAZOLAM HCL 2 MG/2 ML VIAL (VERSED) ONE (08:37)
[2023-11-15] MEDS: ACETAMINOPHEN I.V. 1000 MG 100 ML IV ONE (08:38)
[2023-11-15 12:00] VITALS: BP_SYST 146; PULSE 94; RESP 16; TEMP 98; O2SAT 97
[2023-11-15 16:00] VITALS: BP_SYST 138; PULSE 68; RESP 16; TEMP 98.2; O2SAT 99
[2023-11-15 16:01] VITALS: BP_SYST 146; PULSE 69; RESP 18; TEMP 98; O2SAT 98
== END 2023-11-15 19:58 | DRG 308 ==
LOC: SED 09:49 → STU 13:35
PROVIDERS: ADMIT Preventive Medicine Preventive Medicine/Occupational Environmental Medicine; ATTEND Preventive Medicine Preventive Medicine/Occupational Environmental Medicine
PROC: 30233N1 Transfusion of Nonautologous Red Blood Cells into Peripheral Vein, Percutaneous Approach (ICD-10-PCS; 2023-11-13)
PROC: 4A00X4Z Measurement of Central Nervous Electrical Activity, External Approach (ICD-10-PCS; 2023-11-13)
PROC: 0QSB04Z Reposition Right Lower Femur with Internal Fixation Device, Open Approach (ICD-10-PCS; principal; 2023-11-13 08:41)
DX: S72.401A Unspecified fracture of lower end of right femur, initial encounter for closed fracture (principal); N17.0 Acute kidney failure with tubular necrosis; E43 Unspecified severe protein-calorie malnutrition; E83.41 Hypermagnesemia; E83.51 Hypocalcemia; D64.9 Anemia, unspecified; E11.21 Type 2 diabetes mellitus with diabetic nephropathy; E88.09 Other disorders of plasma-protein metabolism, not elsewhere classified; E11.22 Type 2 diabetes mellitus with diabetic chronic kidney disease; D72.819 Decreased white blood cell count, unspecified; E11.65 Type 2 diabetes mellitus with hyperglycemia; F11.20 Opioid dependence, uncomplicated; I12.9 Hypertensive chronic kidney disease with stage 1 through stage 4 chronic kidney disease, or unspecified chronic kidney disease; M85.80 Other specified disorders of bone density and structure, unspecified site; N18.9 Chronic kidney disease, unspecified; N39.0 Urinary tract infection, site not specified; W18.30XA Fall on same level, unspecified, initial encounter; Y93.89 Activity, other specified; Y92.89 Other specified places as the place of occurrence of the external cause; Y99.8 Other external cause status; Z68.20 Body mass index [BMI] 20.0-20.9, adult; Z79.4 Long term (current) use of insulin; Z79.899 Other long term (current) drug therapy
CPT/HCPCS: 36415; 70450-TC; 71045; 73552; 73564; 73700-TC; 76000; 80048; 80053; 80076; 80307; 81000; 81001; 81015; 82009; 82140; 82550; 82948; 83037; 83605; 83735; 84100; 84484; 85018; 85025; 85610; 85651; 85730; 86886; 86900; 86901; 86920; 87040; 87086; 93005; 94010; 94070; 94760; 95816; 96361; 96374; 96375; 97110-GP; 97112-GP; 97530-GP; 99285; G0378; G0480; G0481; G0482; J0131; J0360; J0690; J1100; J1170; J1815; J2270; J2405; J2704; J2710; J3010; J3465; J3490; J7030; P9021; Q0162